=== PATIENT | female | born 1940 | race American Indian/Alaskan Native ===

== ENCOUNTER 2016-05-16 08:57 | Outpatient (CLI) | payer MEDICARE ==
[2016-05-16] MEDS ORDERED: XYLOCAINE TOPICAL 4% TP ONE (09:07)
== END 2016-05-16 08:58 | disposition home or self-care (01) ==
LOC: WOUND 08:57
PROVIDERS: ATTEND Orthopaedic Surgery
DX: E11.621 Type 2 diabetes mellitus with foot ulcer (principal); L97.521 Non-pressure chronic ulcer of other part of left foot limited to breakdown of skin; L97.421 Non-pressure chronic ulcer of left heel and midfoot limited to breakdown of skin; L84 Corns and callosities; I10 Essential (primary) hypertension; E11.51 Type 2 diabetes mellitus with diabetic peripheral angiopathy without gangrene; Z87.891 Personal history of nicotine dependence; Z89.611 Acquired absence of right leg above knee
CPT/HCPCS: 87075; 87116

== ENCOUNTER 2016-05-30 08:57 | Outpatient (CLI) | payer MEDICARE ==
[~2016-05-30 08:57] MED LIST: XYLOCAINE TOPICAL 2% TP ONE
[2016-05-30] MEDS ORDERED: XYLOCAINE TOPICAL 2% TP ONE (12:23)
== END 2016-05-30 08:58 | disposition home or self-care (01) ==
LOC: WOUND 08:57
PROVIDERS: ATTEND Orthopaedic Surgery
DX: E11.621 Type 2 diabetes mellitus with foot ulcer (principal); L97.521 Non-pressure chronic ulcer of other part of left foot limited to breakdown of skin; E11.51 Type 2 diabetes mellitus with diabetic peripheral angiopathy without gangrene; I10 Essential (primary) hypertension

== ENCOUNTER 2016-06-18 09:01 | Outpatient (CLI) | payer MEDICARE ==
[2016-06-18] MEDS ORDERED: XYLOCAINE TOPICAL 2% TP ONE ×2 (09:32→09:59)
== END 2016-06-18 09:02 | disposition home or self-care (01) ==
LOC: WOUND 09:01
PROVIDERS: ATTEND Internal Medicine
DX: E11.621 Type 2 diabetes mellitus with foot ulcer (principal); L97.422 Non-pressure chronic ulcer of left heel and midfoot with fat layer exposed; L97.521 Non-pressure chronic ulcer of other part of left foot limited to breakdown of skin; E11.51 Type 2 diabetes mellitus with diabetic peripheral angiopathy without gangrene; E11.22 Type 2 diabetes mellitus with diabetic chronic kidney disease; I12.9 Hypertensive chronic kidney disease with stage 1 through stage 4 chronic kidney disease, or unspecified chronic kidney disease; N18.3 Chronic kidney disease, stage 3 (moderate); L84 Corns and callosities; E78.2 Mixed hyperlipidemia; H25.013 Cortical age-related cataract, bilateral; Z89.611 Acquired absence of right leg above knee; Z86.73 Personal history of transient ischemic attack (TIA), and cerebral infarction without residual deficits; Z87.891 Personal history of nicotine dependence
CPT/HCPCS: 87075; 87116

== ENCOUNTER 2016-06-25 09:02 | Outpatient (CLI) | payer MEDICARE ==
[2016-06-25] MEDS ORDERED: XYLOCAINE TOPICAL 4% TP ONE ×2 (10:21→16:36)
== END 2016-06-25 09:03 | disposition home or self-care (01) ==
LOC: WOUND 09:02
PROVIDERS: ATTEND Internal Medicine
DX: E11.621 Type 2 diabetes mellitus with foot ulcer (principal); L97.421 Non-pressure chronic ulcer of left heel and midfoot limited to breakdown of skin; Z86.73 Personal history of transient ischemic attack (TIA), and cerebral infarction without residual deficits; E78.2 Mixed hyperlipidemia; E11.22 Type 2 diabetes mellitus with diabetic chronic kidney disease; I12.9 Hypertensive chronic kidney disease with stage 1 through stage 4 chronic kidney disease, or unspecified chronic kidney disease; N18.3 Chronic kidney disease, stage 3 (moderate); E08.621 Diabetes mellitus due to underlying condition with foot ulcer; H25.013 Cortical age-related cataract, bilateral; E08.8 Diabetes mellitus due to underlying condition with unspecified complications; Z87.891 Personal history of nicotine dependence

== ENCOUNTER 2016-07-09 08:55 | Outpatient (CLI) | payer MEDICARE ==
[2016-07-09] MEDS ORDERED: XYLOCAINE TOPICAL 4% TP ONE ×2 (08:59→09:36)
== END 2016-07-09 08:56 | disposition home or self-care (01) ==
LOC: WOUND 08:55
PROVIDERS: ATTEND Internal Medicine
DX: E11.621 Type 2 diabetes mellitus with foot ulcer (principal); L97.421 Non-pressure chronic ulcer of left heel and midfoot limited to breakdown of skin; E78.2 Mixed hyperlipidemia; H25.013 Cortical age-related cataract, bilateral; E11.22 Type 2 diabetes mellitus with diabetic chronic kidney disease; I12.9 Hypertensive chronic kidney disease with stage 1 through stage 4 chronic kidney disease, or unspecified chronic kidney disease; N18.3 Chronic kidney disease, stage 3 (moderate); I73.9 Peripheral vascular disease, unspecified; Z86.73 Personal history of transient ischemic attack (TIA), and cerebral infarction without residual deficits; Z87.891 Personal history of nicotine dependence

== ENCOUNTER 2016-07-23 09:00 | Outpatient (CLI) | payer MEDICARE ==
[2016-07-23] MEDS ORDERED: XYLOCAINE TOPICAL 4% TP ONE ×2 (09:18→11:45)
== END 2016-07-23 09:01 | disposition home or self-care (01) ==
LOC: WOUND 09:00
PROVIDERS: ATTEND Internal Medicine
DX: E11.621 Type 2 diabetes mellitus with foot ulcer (principal); L97.421 Non-pressure chronic ulcer of left heel and midfoot limited to breakdown of skin; L97.521 Non-pressure chronic ulcer of other part of left foot limited to breakdown of skin; E78.2 Mixed hyperlipidemia; H25.013 Cortical age-related cataract, bilateral; E11.22 Type 2 diabetes mellitus with diabetic chronic kidney disease; I12.9 Hypertensive chronic kidney disease with stage 1 through stage 4 chronic kidney disease, or unspecified chronic kidney disease; N18.3 Chronic kidney disease, stage 3 (moderate); I73.9 Peripheral vascular disease, unspecified; Z86.73 Personal history of transient ischemic attack (TIA), and cerebral infarction without residual deficits; Z87.891 Personal history of nicotine dependence; Z89.511 Acquired absence of right leg below knee
CPT/HCPCS: 11055

== ENCOUNTER 2016-08-15 09:02 | Outpatient (CLI) | payer MEDICARE ==
[2016-08-15] MEDS ORDERED: XYLOCAINE TOPICAL 2% TP ONE (09:17)
== END 2016-08-15 09:03 | disposition home or self-care (01) ==
LOC: WOUND 09:02
PROVIDERS: ATTEND Internal Medicine
DX: E11.621 Type 2 diabetes mellitus with foot ulcer (principal); L97.421 Non-pressure chronic ulcer of left heel and midfoot limited to breakdown of skin; I10 Essential (primary) hypertension; E78.2 Mixed hyperlipidemia; H25.013 Cortical age-related cataract, bilateral; E11.51 Type 2 diabetes mellitus with diabetic peripheral angiopathy without gangrene; Z86.73 Personal history of transient ischemic attack (TIA), and cerebral infarction without residual deficits; Z87.891 Personal history of nicotine dependence; Z89.611 Acquired absence of right leg above knee
CPT/HCPCS: 99215; G0463

== ENCOUNTER 2016-08-22 09:11 | Outpatient (CLI) | payer MEDICARE ==
[2016-08-22] MEDS ORDERED: XYLOCAINE TOPICAL 2% TP ONE (09:51)
== END 2016-08-22 09:12 | disposition home or self-care (01) ==
LOC: WOUND 09:11
PROVIDERS: ATTEND Internal Medicine
DX: E11.621 Type 2 diabetes mellitus with foot ulcer (principal); L97.421 Non-pressure chronic ulcer of left heel and midfoot limited to breakdown of skin; E11.22 Type 2 diabetes mellitus with diabetic chronic kidney disease; I12.9 Hypertensive chronic kidney disease with stage 1 through stage 4 chronic kidney disease, or unspecified chronic kidney disease; N18.3 Chronic kidney disease, stage 3 (moderate); E78.2 Mixed hyperlipidemia; H25.013 Cortical age-related cataract, bilateral; E11.51 Type 2 diabetes mellitus with diabetic peripheral angiopathy without gangrene; Z89.611 Acquired absence of right leg above knee; Z86.73 Personal history of transient ischemic attack (TIA), and cerebral infarction without residual deficits; Z87.891 Personal history of nicotine dependence
CPT/HCPCS: 11055; 87075; 87076; 87116; 87186

== ENCOUNTER 2016-09-03 09:12 | Outpatient (CLI) | payer MEDICARE ==
[2016-09-03] MEDS ORDERED: XYLOCAINE TOPICAL 4% TP ONE ×2 (09:38→10:00)
== END 2016-09-03 09:13 | disposition home or self-care (01) ==
LOC: WOUND 09:12
PROVIDERS: ATTEND Surgery
DX: E11.621 Type 2 diabetes mellitus with foot ulcer (principal); L97.421 Non-pressure chronic ulcer of left heel and midfoot limited to breakdown of skin; L97.521 Non-pressure chronic ulcer of other part of left foot limited to breakdown of skin; E78.2 Mixed hyperlipidemia; H25.013 Cortical age-related cataract, bilateral; E11.22 Type 2 diabetes mellitus with diabetic chronic kidney disease; I12.9 Hypertensive chronic kidney disease with stage 1 through stage 4 chronic kidney disease, or unspecified chronic kidney disease; N18.3 Chronic kidney disease, stage 3 (moderate); Z87.891 Personal history of nicotine dependence
CPT/HCPCS: 97597

== ENCOUNTER 2016-09-10 09:18 | Outpatient (CLI) | payer MEDICARE ==
[2016-09-10] MEDS ORDERED: XYLOCAINE TOPICAL 4% TP ONE ×2 (09:35→14:44)
== END 2016-09-10 09:19 | disposition home or self-care (01) ==
LOC: WOUND 09:18
PROVIDERS: ATTEND Internal Medicine
DX: E11.621 Type 2 diabetes mellitus with foot ulcer (principal); L97.421 Non-pressure chronic ulcer of left heel and midfoot limited to breakdown of skin; L97.521 Non-pressure chronic ulcer of other part of left foot limited to breakdown of skin; I10 Essential (primary) hypertension; E78.2 Mixed hyperlipidemia; H25.013 Cortical age-related cataract, bilateral; E11.22 Type 2 diabetes mellitus with diabetic chronic kidney disease; I12.9 Hypertensive chronic kidney disease with stage 1 through stage 4 chronic kidney disease, or unspecified chronic kidney disease; N18.3 Chronic kidney disease, stage 3 (moderate); E11.51 Type 2 diabetes mellitus with diabetic peripheral angiopathy without gangrene; E78.5 Hyperlipidemia, unspecified; Z86.73 Personal history of transient ischemic attack (TIA), and cerebral infarction without residual deficits; Z87.891 Personal history of nicotine dependence

== ENCOUNTER 2016-09-24 09:13 | Outpatient (CLI) | payer MEDICARE ==
[2016-09-24] MEDS ORDERED: XYLOCAINE TOPICAL 4% TP ONE (10:30)
== END 2016-09-24 09:14 | disposition home or self-care (01) ==
LOC: WOUND 09:13
PROVIDERS: ATTEND Internal Medicine
DX: E11.621 Type 2 diabetes mellitus with foot ulcer (principal); L97.421 Non-pressure chronic ulcer of left heel and midfoot limited to breakdown of skin; L97.521 Non-pressure chronic ulcer of other part of left foot limited to breakdown of skin; I10 Essential (primary) hypertension; E78.2 Mixed hyperlipidemia; H25.013 Cortical age-related cataract, bilateral; E11.22 Type 2 diabetes mellitus with diabetic chronic kidney disease; I12.9 Hypertensive chronic kidney disease with stage 1 through stage 4 chronic kidney disease, or unspecified chronic kidney disease; N18.3 Chronic kidney disease, stage 3 (moderate); E78.5 Hyperlipidemia, unspecified; E11.51 Type 2 diabetes mellitus with diabetic peripheral angiopathy without gangrene; Z86.73 Personal history of transient ischemic attack (TIA), and cerebral infarction without residual deficits; Z89.611 Acquired absence of right leg above knee; Z87.891 Personal history of nicotine dependence

== ENCOUNTER 2016-10-15 08:50 | Outpatient (CLI) | payer MEDICARE ==
[2016-10-15] MEDS ORDERED: XYLOCAINE TOPICAL 4% TP ONE ×2 (10:01→10:06)
== END 2016-10-15 08:51 | disposition home or self-care (01) ==
LOC: WOUND 08:50
PROVIDERS: ATTEND Internal Medicine
DX: I70.244 Atherosclerosis of native arteries of left leg with ulceration of heel and midfoot (principal); I70.245 Atherosclerosis of native arteries of left leg with ulceration of other part of foot; E11.621 Type 2 diabetes mellitus with foot ulcer; L97.421 Non-pressure chronic ulcer of left heel and midfoot limited to breakdown of skin; E78.2 Mixed hyperlipidemia; E11.22 Type 2 diabetes mellitus with diabetic chronic kidney disease; I12.9 Hypertensive chronic kidney disease with stage 1 through stage 4 chronic kidney disease, or unspecified chronic kidney disease; N18.3 Chronic kidney disease, stage 3 (moderate); E11.36 Type 2 diabetes mellitus with diabetic cataract; L84 Corns and callosities; E11.51 Type 2 diabetes mellitus with diabetic peripheral angiopathy without gangrene; Z89.611 Acquired absence of right leg above knee; Z86.73 Personal history of transient ischemic attack (TIA), and cerebral infarction without residual deficits; Z87.891 Personal history of nicotine dependence

== ENCOUNTER 2016-10-29 09:14 | Outpatient (CLI) | payer MEDICARE ==
[2016-10-29] MEDS ORDERED: XYLOCAINE TOPICAL 4% TP ONE ×2 (09:28→09:35)
== END 2016-10-29 09:15 | disposition home or self-care (01) ==
LOC: WOUND 09:14
PROVIDERS: ATTEND Internal Medicine
DX: E11.621 Type 2 diabetes mellitus with foot ulcer (principal); I70.244 Atherosclerosis of native arteries of left leg with ulceration of heel and midfoot; L97.421 Non-pressure chronic ulcer of left heel and midfoot limited to breakdown of skin; E11.22 Type 2 diabetes mellitus with diabetic chronic kidney disease; I12.9 Hypertensive chronic kidney disease with stage 1 through stage 4 chronic kidney disease, or unspecified chronic kidney disease; N18.3 Chronic kidney disease, stage 3 (moderate); E78.2 Mixed hyperlipidemia; H25.013 Cortical age-related cataract, bilateral; L84 Corns and callosities; E11.51 Type 2 diabetes mellitus with diabetic peripheral angiopathy without gangrene; Z86.73 Personal history of transient ischemic attack (TIA), and cerebral infarction without residual deficits; Z89.611 Acquired absence of right leg above knee; Z87.891 Personal history of nicotine dependence
CPT/HCPCS: 99215; G0463

== ENCOUNTER 2016-11-05 09:22 | Outpatient (CLI) | payer MEDICARE ==
[2016-11-05] MEDS ORDERED: XYLOCAINE TOPICAL 4% TP ONE ×2 (10:08→10:18)
[2016-11-05] MEDS ORDERED: SANTYL TP ONE ×2 (10:41→11:02)
== END 2016-11-05 09:23 | disposition home or self-care (01) ==
LOC: WOUND 09:22
PROVIDERS: ATTEND Internal Medicine
DX: E11.621 Type 2 diabetes mellitus with foot ulcer (principal); L97.521 Non-pressure chronic ulcer of other part of left foot limited to breakdown of skin; E11.622 Type 2 diabetes mellitus with other skin ulcer; L97.321 Non-pressure chronic ulcer of left ankle limited to breakdown of skin; E78.2 Mixed hyperlipidemia; H25.013 Cortical age-related cataract, bilateral; I87.2 Venous insufficiency (chronic) (peripheral); E11.22 Type 2 diabetes mellitus with diabetic chronic kidney disease; I12.9 Hypertensive chronic kidney disease with stage 1 through stage 4 chronic kidney disease, or unspecified chronic kidney disease; N18.3 Chronic kidney disease, stage 3 (moderate); E11.51 Type 2 diabetes mellitus with diabetic peripheral angiopathy without gangrene; Z87.891 Personal history of nicotine dependence; Z86.73 Personal history of transient ischemic attack (TIA), and cerebral infarction without residual deficits; Z89.611 Acquired absence of right leg above knee

== ENCOUNTER 2016-11-19 09:35 | Outpatient (CLI) | payer MEDICARE ==
[2016-11-19] MEDS ORDERED: XYLOCAINE TOPICAL 4% TP ONE ×2 (10:21→10:32)
== END 2016-11-19 09:36 | disposition home or self-care (01) ==
LOC: WOUND 09:35
PROVIDERS: ATTEND Internal Medicine
DX: E11.621 Type 2 diabetes mellitus with foot ulcer (principal); L97.521 Non-pressure chronic ulcer of other part of left foot limited to breakdown of skin; E11.51 Type 2 diabetes mellitus with diabetic peripheral angiopathy without gangrene; E11.22 Type 2 diabetes mellitus with diabetic chronic kidney disease; N18.3 Chronic kidney disease, stage 3 (moderate); E78.2 Mixed hyperlipidemia; I10 Essential (primary) hypertension; Z86.73 Personal history of transient ischemic attack (TIA), and cerebral infarction without residual deficits; Z89.611 Acquired absence of right leg above knee; Z87.891 Personal history of nicotine dependence
CPT/HCPCS: 71020

== ENCOUNTER 2016-11-19 12:28 | Outpatient (CLI) | payer MEDICARE ==
--- NOTE | 2016-11-19 14:55 | XRay Report ---
CHEST 2 VIEWS INDICATION: Pre-hyperbaric screening. COMPARISON: 03/24/2014. FINDINGS: PA and lateral chest radiographs demonstrate normal cardiomediastinal silhouette. Clear lungs. Interval right upper extremity PICC removal. Stable demineralized bones with various degenerative changes. CONCLUSION: No acute disease in the chest. Thank you for the opportunity to participate in this patient's care.
== END 2016-11-19 12:29 | disposition home or self-care (01) ==
LOC: XRAY 12:28
PROVIDERS: ATTEND Internal Medicine
DX: Z13.89 Encounter for screening for other disorder (principal); I13.0 Hypertensive heart and chronic kidney disease with heart failure and stage 1 through stage 4 chronic kidney disease, or unspecified chronic kidney disease; I50.9 Heart failure, unspecified; N18.4 Chronic kidney disease, stage 4 (severe); E11.22 Type 2 diabetes mellitus with diabetic chronic kidney disease; D63.1 Anemia in chronic kidney disease; I25.10 Atherosclerotic heart disease of native coronary artery without angina pectoris; E78.00 Pure hypercholesterolemia, unspecified; J45.909 Unspecified asthma, uncomplicated; Z87.891 Personal history of nicotine dependence
CPT/HCPCS: 71020

== ENCOUNTER 2016-11-26 09:34 | Outpatient (CLI) | payer MEDICARE ==
[2016-11-26] MEDS ORDERED: XYLOCAINE TOPICAL 4% TP ONE (11:03)
[2016-11-26] MEDS ORDERED: AD OINTMENT TP ONE (11:43)
[2016-11-27] MEDS ORDERED: AD OINTMENT TP SCH (10:00)
== END 2016-11-26 09:35 | disposition home or self-care (01) ==
LOC: WOUND 09:34
PROVIDERS: ATTEND Internal Medicine
DX: E11.621 Type 2 diabetes mellitus with foot ulcer (principal); L97.521 Non-pressure chronic ulcer of other part of left foot limited to breakdown of skin; E11.51 Type 2 diabetes mellitus with diabetic peripheral angiopathy without gangrene; E11.22 Type 2 diabetes mellitus with diabetic chronic kidney disease; I12.9 Hypertensive chronic kidney disease with stage 1 through stage 4 chronic kidney disease, or unspecified chronic kidney disease; N18.3 Chronic kidney disease, stage 3 (moderate); E11.69 Type 2 diabetes mellitus with other specified complication; M86.572 Other chronic hematogenous osteomyelitis, left ankle and foot; E78.2 Mixed hyperlipidemia; H25.013 Cortical age-related cataract, bilateral; Z86.73 Personal history of transient ischemic attack (TIA), and cerebral infarction without residual deficits; Z89.611 Acquired absence of right leg above knee; Z87.891 Personal history of nicotine dependence
CPT/HCPCS: 11042; 11045; 82962; G0277; 99183; A6250

== ENCOUNTER 2016-11-28 09:12 | Outpatient (CLI) | payer MEDICARE | END 2016-11-28 09:13 | disposition home or self-care (01) | LOC: WOUND 09:12 | PROVIDERS: ATTEND Surgery | DX: E11.621 Type 2 diabetes mellitus with foot ulcer (principal); L97.421 Non-pressure chronic ulcer of left heel and midfoot limited to breakdown of skin; E11.69 Type 2 diabetes mellitus with other specified complication; M86.572 Other chronic hematogenous osteomyelitis, left ankle and foot; E11.22 Type 2 diabetes mellitus with diabetic chronic kidney disease; I12.9 Hypertensive chronic kidney disease with stage 1 through stage 4 chronic kidney disease, or unspecified chronic kidney disease; N18.9 Chronic kidney disease, unspecified; E78.2 Mixed hyperlipidemia; H25.013 Cortical age-related cataract, bilateral; E11.51 Type 2 diabetes mellitus with diabetic peripheral angiopathy without gangrene; Z86.73 Personal history of transient ischemic attack (TIA), and cerebral infarction without residual deficits; Z89.611 Acquired absence of right leg above knee; Z87.891 Personal history of nicotine dependence | CPT/HCPCS: 82962; G0277; 99183 ==

== ENCOUNTER 2016-11-29 09:24 | Outpatient (CLI) | payer MEDICARE | END 2016-11-29 09:25 | disposition home or self-care (01) | LOC: WOUND 09:24 | PROVIDERS: ATTEND Nurse Practitioner | DX: E11.621 Type 2 diabetes mellitus with foot ulcer (principal); L97.421 Non-pressure chronic ulcer of left heel and midfoot limited to breakdown of skin; E11.51 Type 2 diabetes mellitus with diabetic peripheral angiopathy without gangrene; E11.22 Type 2 diabetes mellitus with diabetic chronic kidney disease; I12.9 Hypertensive chronic kidney disease with stage 1 through stage 4 chronic kidney disease, or unspecified chronic kidney disease; N18.9 Chronic kidney disease, unspecified; E11.36 Type 2 diabetes mellitus with diabetic cataract; E11.69 Type 2 diabetes mellitus with other specified complication; E78.2 Mixed hyperlipidemia; M86.572 Other chronic hematogenous osteomyelitis, left ankle and foot; Z86.73 Personal history of transient ischemic attack (TIA), and cerebral infarction without residual deficits; Z89.611 Acquired absence of right leg above knee; Z87.891 Personal history of nicotine dependence | CPT/HCPCS: 82962; G0277; 99183 ==

== ENCOUNTER 2016-11-30 09:31 | Outpatient (CLI) | payer MEDICARE | END 2016-11-30 09:32 | disposition home or self-care (01) | LOC: WOUND 09:31 | PROVIDERS: ATTEND Podiatrist | DX: E11.621 Type 2 diabetes mellitus with foot ulcer (principal); L97.421 Non-pressure chronic ulcer of left heel and midfoot limited to breakdown of skin; H25.013 Cortical age-related cataract, bilateral; E11.22 Type 2 diabetes mellitus with diabetic chronic kidney disease; I12.9 Hypertensive chronic kidney disease with stage 1 through stage 4 chronic kidney disease, or unspecified chronic kidney disease; N18.3 Chronic kidney disease, stage 3 (moderate); E78.2 Mixed hyperlipidemia; E11.69 Type 2 diabetes mellitus with other specified complication; M86.572 Other chronic hematogenous osteomyelitis, left ankle and foot; E11.51 Type 2 diabetes mellitus with diabetic peripheral angiopathy without gangrene; Z86.73 Personal history of transient ischemic attack (TIA), and cerebral infarction without residual deficits; Z89.611 Acquired absence of right leg above knee; Z87.891 Personal history of nicotine dependence | CPT/HCPCS: 82962; G0277; 99183 ==

== ENCOUNTER 2016-12-03 09:08 | Outpatient (CLI) | payer MEDICARE ==
[2016-12-03] MEDS ORDERED: XYLOCAINE TOPICAL 4% TP ONE (09:24)
== END 2016-12-03 09:09 | disposition home or self-care (01) ==
LOC: WOUND 09:08
PROVIDERS: ATTEND Internal Medicine
DX: E11.621 Type 2 diabetes mellitus with foot ulcer (principal); L97.521 Non-pressure chronic ulcer of other part of left foot limited to breakdown of skin; E11.51 Type 2 diabetes mellitus with diabetic peripheral angiopathy without gangrene; E11.22 Type 2 diabetes mellitus with diabetic chronic kidney disease; I12.9 Hypertensive chronic kidney disease with stage 1 through stage 4 chronic kidney disease, or unspecified chronic kidney disease; N18.3 Chronic kidney disease, stage 3 (moderate); H25.013 Cortical age-related cataract, bilateral; E11.69 Type 2 diabetes mellitus with other specified complication; M86.572 Other chronic hematogenous osteomyelitis, left ankle and foot; E78.2 Mixed hyperlipidemia; I10 Essential (primary) hypertension; L84 Corns and callosities; Z86.73 Personal history of transient ischemic attack (TIA), and cerebral infarction without residual deficits; Z89.611 Acquired absence of right leg above knee; Z87.891 Personal history of nicotine dependence
CPT/HCPCS: 11042; 11045; 82962; G0277; 99183

== ENCOUNTER 2016-12-04 09:35 | Outpatient (CLI) | payer MEDICARE | END 2016-12-04 09:36 | disposition home or self-care (01) | LOC: WOUND 09:35 | PROVIDERS: ATTEND Surgery | DX: E11.621 Type 2 diabetes mellitus with foot ulcer (principal); L97.421 Non-pressure chronic ulcer of left heel and midfoot limited to breakdown of skin; E11.22 Type 2 diabetes mellitus with diabetic chronic kidney disease; E11.51 Type 2 diabetes mellitus with diabetic peripheral angiopathy without gangrene; I12.9 Hypertensive chronic kidney disease with stage 1 through stage 4 chronic kidney disease, or unspecified chronic kidney disease; N18.3 Chronic kidney disease, stage 3 (moderate); E11.69 Type 2 diabetes mellitus with other specified complication; M86.572 Other chronic hematogenous osteomyelitis, left ankle and foot; E78.2 Mixed hyperlipidemia; H25.013 Cortical age-related cataract, bilateral; Z86.73 Personal history of transient ischemic attack (TIA), and cerebral infarction without residual deficits; Z89.611 Acquired absence of right leg above knee; Z87.891 Personal history of nicotine dependence | CPT/HCPCS: 82962; G0277; 99183 ==

== ENCOUNTER 2016-12-05 09:18 | Outpatient (CLI) | payer MEDICARE | END 2016-12-05 09:19 | disposition home or self-care (01) | LOC: WOUND 09:18 | PROVIDERS: ATTEND Surgery | DX: E11.621 Type 2 diabetes mellitus with foot ulcer (principal); L97.421 Non-pressure chronic ulcer of left heel and midfoot limited to breakdown of skin; E11.51 Type 2 diabetes mellitus with diabetic peripheral angiopathy without gangrene; H25.013 Cortical age-related cataract, bilateral; E78.2 Mixed hyperlipidemia; E11.22 Type 2 diabetes mellitus with diabetic chronic kidney disease; I12.9 Hypertensive chronic kidney disease with stage 1 through stage 4 chronic kidney disease, or unspecified chronic kidney disease; N18.3 Chronic kidney disease, stage 3 (moderate); E11.69 Type 2 diabetes mellitus with other specified complication; M86.572 Other chronic hematogenous osteomyelitis, left ankle and foot; Z86.73 Personal history of transient ischemic attack (TIA), and cerebral infarction without residual deficits; Z89.611 Acquired absence of right leg above knee; Z87.891 Personal history of nicotine dependence | CPT/HCPCS: 82962; G0277; 99183 ==

== ENCOUNTER 2016-12-06 09:41 | Outpatient (CLI) | payer MEDICARE | END 2016-12-06 09:42 | disposition home or self-care (01) | LOC: WOUND 09:41 | PROVIDERS: ATTEND Nurse Practitioner | DX: E11.621 Type 2 diabetes mellitus with foot ulcer (principal); L97.421 Non-pressure chronic ulcer of left heel and midfoot limited to breakdown of skin; E11.69 Type 2 diabetes mellitus with other specified complication; M86.572 Other chronic hematogenous osteomyelitis, left ankle and foot; E78.2 Mixed hyperlipidemia; H25.013 Cortical age-related cataract, bilateral; E11.22 Type 2 diabetes mellitus with diabetic chronic kidney disease; I12.9 Hypertensive chronic kidney disease with stage 1 through stage 4 chronic kidney disease, or unspecified chronic kidney disease; N18.3 Chronic kidney disease, stage 3 (moderate); E11.51 Type 2 diabetes mellitus with diabetic peripheral angiopathy without gangrene; E78.5 Hyperlipidemia, unspecified; Z86.73 Personal history of transient ischemic attack (TIA), and cerebral infarction without residual deficits; Z89.611 Acquired absence of right leg above knee; Z87.891 Personal history of nicotine dependence | CPT/HCPCS: 82962; G0277; 99183 ==

== ENCOUNTER 2016-12-07 09:48 | Outpatient (CLI) | payer MEDICARE | END 2016-12-07 09:49 | disposition home or self-care (01) | LOC: WOUND 09:48 | PROVIDERS: ATTEND Podiatrist | DX: E11.621 Type 2 diabetes mellitus with foot ulcer (principal); L97.421 Non-pressure chronic ulcer of left heel and midfoot limited to breakdown of skin; E11.51 Type 2 diabetes mellitus with diabetic peripheral angiopathy without gangrene; E11.69 Type 2 diabetes mellitus with other specified complication; M86.572 Other chronic hematogenous osteomyelitis, left ankle and foot; E11.22 Type 2 diabetes mellitus with diabetic chronic kidney disease; I12.9 Hypertensive chronic kidney disease with stage 1 through stage 4 chronic kidney disease, or unspecified chronic kidney disease; N18.3 Chronic kidney disease, stage 3 (moderate); E78.2 Mixed hyperlipidemia; H25.013 Cortical age-related cataract, bilateral; E78.5 Hyperlipidemia, unspecified; Z86.73 Personal history of transient ischemic attack (TIA), and cerebral infarction without residual deficits; Z89.611 Acquired absence of right leg above knee; Z87.891 Personal history of nicotine dependence | CPT/HCPCS: 82962; G0277; 99183 ==

== ENCOUNTER 2016-12-10 08:58 | Outpatient (CLI) | payer MEDICARE ==
[2016-12-10] MEDS ORDERED: XYLOCAINE TOPICAL 4% TP ONE (09:26)
== END 2016-12-10 08:59 | disposition home or self-care (01) ==
LOC: WOUND 08:58
PROVIDERS: ATTEND Internal Medicine
DX: E11.621 Type 2 diabetes mellitus with foot ulcer (principal); L97.521 Non-pressure chronic ulcer of other part of left foot limited to breakdown of skin; L97.421 Non-pressure chronic ulcer of left heel and midfoot limited to breakdown of skin; E11.69 Type 2 diabetes mellitus with other specified complication; M86.572 Other chronic hematogenous osteomyelitis, left ankle and foot; E78.2 Mixed hyperlipidemia; H25.013 Cortical age-related cataract, bilateral; E11.22 Type 2 diabetes mellitus with diabetic chronic kidney disease; I12.9 Hypertensive chronic kidney disease with stage 1 through stage 4 chronic kidney disease, or unspecified chronic kidney disease; N18.3 Chronic kidney disease, stage 3 (moderate); E11.51 Type 2 diabetes mellitus with diabetic peripheral angiopathy without gangrene; Z86.73 Personal history of transient ischemic attack (TIA), and cerebral infarction without residual deficits; Z87.891 Personal history of nicotine dependence; Z89.611 Acquired absence of right leg above knee
CPT/HCPCS: 11042; 11045; 82962; G0277; 99183

== ENCOUNTER 2016-12-11 09:33 | Outpatient (CLI) | payer MEDICARE ==
[~2016-12-11 09:33] MED LIST changes: -XYLOCAINE TOPICAL 2% TP ONE; +XYLOCAINE TOPICAL 4% TP ONE
== END 2016-12-11 09:34 | disposition home or self-care (01) ==
LOC: WOUND 09:33
PROVIDERS: ATTEND Surgery
DX: E11.621 Type 2 diabetes mellitus with foot ulcer (principal); L97.421 Non-pressure chronic ulcer of left heel and midfoot limited to breakdown of skin; E11.69 Type 2 diabetes mellitus with other specified complication; M86.572 Other chronic hematogenous osteomyelitis, left ankle and foot; H25.013 Cortical age-related cataract, bilateral; E78.2 Mixed hyperlipidemia; E11.22 Type 2 diabetes mellitus with diabetic chronic kidney disease; I12.9 Hypertensive chronic kidney disease with stage 1 through stage 4 chronic kidney disease, or unspecified chronic kidney disease; N18.3 Chronic kidney disease, stage 3 (moderate); E11.51 Type 2 diabetes mellitus with diabetic peripheral angiopathy without gangrene; Z86.73 Personal history of transient ischemic attack (TIA), and cerebral infarction without residual deficits; Z89.611 Acquired absence of right leg above knee; Z87.891 Personal history of nicotine dependence
CPT/HCPCS: 82962; G0277; 99183

== ENCOUNTER 2016-12-12 09:26 | Outpatient (CLI) | payer MEDICARE | END 2016-12-12 09:27 | disposition home or self-care (01) | LOC: WOUND 09:26 | PROVIDERS: ATTEND Surgery | DX: E11.621 Type 2 diabetes mellitus with foot ulcer (principal); L97.421 Non-pressure chronic ulcer of left heel and midfoot limited to breakdown of skin; H25.013 Cortical age-related cataract, bilateral; E11.22 Type 2 diabetes mellitus with diabetic chronic kidney disease; I12.9 Hypertensive chronic kidney disease with stage 1 through stage 4 chronic kidney disease, or unspecified chronic kidney disease; N18.3 Chronic kidney disease, stage 3 (moderate); E11.69 Type 2 diabetes mellitus with other specified complication; M86.572 Other chronic hematogenous osteomyelitis, left ankle and foot; E78.2 Mixed hyperlipidemia; E11.51 Type 2 diabetes mellitus with diabetic peripheral angiopathy without gangrene; Z86.73 Personal history of transient ischemic attack (TIA), and cerebral infarction without residual deficits; Z87.891 Personal history of nicotine dependence | CPT/HCPCS: 82962; G0277; 99183 ==

== ENCOUNTER 2016-12-13 09:46 | Outpatient (CLI) | payer MEDICARE | END 2016-12-13 09:47 | disposition home or self-care (01) | LOC: WOUND 09:46 | PROVIDERS: ATTEND Nurse Practitioner | DX: E11.621 Type 2 diabetes mellitus with foot ulcer (principal); L97.421 Non-pressure chronic ulcer of left heel and midfoot limited to breakdown of skin; E11.22 Type 2 diabetes mellitus with diabetic chronic kidney disease; I12.9 Hypertensive chronic kidney disease with stage 1 through stage 4 chronic kidney disease, or unspecified chronic kidney disease; N18.3 Chronic kidney disease, stage 3 (moderate); E78.2 Mixed hyperlipidemia; H25.013 Cortical age-related cataract, bilateral; E11.69 Type 2 diabetes mellitus with other specified complication; M86.572 Other chronic hematogenous osteomyelitis, left ankle and foot; E11.51 Type 2 diabetes mellitus with diabetic peripheral angiopathy without gangrene; Z86.73 Personal history of transient ischemic attack (TIA), and cerebral infarction without residual deficits; Z89.611 Acquired absence of right leg above knee; Z87.891 Personal history of nicotine dependence | CPT/HCPCS: 82962; G0277; 99183 ==

== ENCOUNTER 2016-12-14 09:28 | Outpatient (CLI) | payer MEDICARE | END 2016-12-14 09:29 | disposition home or self-care (01) | LOC: WOUND 09:28 | PROVIDERS: ATTEND Podiatrist | DX: E11.621 Type 2 diabetes mellitus with foot ulcer (principal); L97.421 Non-pressure chronic ulcer of left heel and midfoot limited to breakdown of skin; E11.69 Type 2 diabetes mellitus with other specified complication; M86.572 Other chronic hematogenous osteomyelitis, left ankle and foot; H25.013 Cortical age-related cataract, bilateral; E11.22 Type 2 diabetes mellitus with diabetic chronic kidney disease; I12.9 Hypertensive chronic kidney disease with stage 1 through stage 4 chronic kidney disease, or unspecified chronic kidney disease; N18.9 Chronic kidney disease, unspecified; E78.2 Mixed hyperlipidemia; E11.51 Type 2 diabetes mellitus with diabetic peripheral angiopathy without gangrene; Z86.73 Personal history of transient ischemic attack (TIA), and cerebral infarction without residual deficits; Z89.611 Acquired absence of right leg above knee; Z87.891 Personal history of nicotine dependence | CPT/HCPCS: 82962; G0277; 99183 ==

== ENCOUNTER 2016-12-17 09:01 | Outpatient (CLI) | payer MEDICARE ==
[2016-12-17] MEDS ORDERED: XYLOCAINE TOPICAL 4% TP ONE ×2 (09:27→09:38)
== END 2016-12-17 09:02 | disposition home or self-care (01) ==
LOC: WOUND 09:01
PROVIDERS: ATTEND Internal Medicine
DX: E11.621 Type 2 diabetes mellitus with foot ulcer (principal); L97.521 Non-pressure chronic ulcer of other part of left foot limited to breakdown of skin; E11.69 Type 2 diabetes mellitus with other specified complication; M86.572 Other chronic hematogenous osteomyelitis, left ankle and foot; E11.22 Type 2 diabetes mellitus with diabetic chronic kidney disease; I12.9 Hypertensive chronic kidney disease with stage 1 through stage 4 chronic kidney disease, or unspecified chronic kidney disease; N18.3 Chronic kidney disease, stage 3 (moderate); E78.2 Mixed hyperlipidemia; E11.51 Type 2 diabetes mellitus with diabetic peripheral angiopathy without gangrene; Z86.73 Personal history of transient ischemic attack (TIA), and cerebral infarction without residual deficits; Z89.611 Acquired absence of right leg above knee; Z87.891 Personal history of nicotine dependence
CPT/HCPCS: 11042; 82962; G0277; 99183

== ENCOUNTER 2016-12-18 09:21 | Outpatient (CLI) | payer MEDICARE | END 2016-12-18 09:22 | disposition home or self-care (01) | LOC: WOUND 09:21 | PROVIDERS: ATTEND Surgery | DX: E11.621 Type 2 diabetes mellitus with foot ulcer (principal); L97.421 Non-pressure chronic ulcer of left heel and midfoot limited to breakdown of skin; E11.51 Type 2 diabetes mellitus with diabetic peripheral angiopathy without gangrene; E11.22 Type 2 diabetes mellitus with diabetic chronic kidney disease; I12.9 Hypertensive chronic kidney disease with stage 1 through stage 4 chronic kidney disease, or unspecified chronic kidney disease; N18.3 Chronic kidney disease, stage 3 (moderate); H25.013 Cortical age-related cataract, bilateral; E11.69 Type 2 diabetes mellitus with other specified complication; M86.572 Other chronic hematogenous osteomyelitis, left ankle and foot; E78.5 Hyperlipidemia, unspecified; Z86.73 Personal history of transient ischemic attack (TIA), and cerebral infarction without residual deficits; Z89.611 Acquired absence of right leg above knee; Z87.891 Personal history of nicotine dependence | CPT/HCPCS: 82962; G0277; 99183 ==

== ENCOUNTER 2016-12-24 09:35 | Outpatient (CLI) | payer MEDICARE | END 2016-12-24 09:36 | disposition home or self-care (01) | LOC: WOUND 09:35 | PROVIDERS: ATTEND Internal Medicine | DX: E11.69 Type 2 diabetes mellitus with other specified complication (principal); M86.572 Other chronic hematogenous osteomyelitis, left ankle and foot; E11.22 Type 2 diabetes mellitus with diabetic chronic kidney disease; I12.9 Hypertensive chronic kidney disease with stage 1 through stage 4 chronic kidney disease, or unspecified chronic kidney disease; N18.3 Chronic kidney disease, stage 3 (moderate); E78.2 Mixed hyperlipidemia; H25.013 Cortical age-related cataract, bilateral; E11.51 Type 2 diabetes mellitus with diabetic peripheral angiopathy without gangrene; E78.5 Hyperlipidemia, unspecified; Z86.73 Personal history of transient ischemic attack (TIA), and cerebral infarction without residual deficits; Z89.611 Acquired absence of right leg above knee; Z87.891 Personal history of nicotine dependence | CPT/HCPCS: 82962; G0277; 99183 ==

== ENCOUNTER 2016-12-25 14:10 | Outpatient (CLI) | payer MEDICARE | END 2016-12-25 14:11 | disposition home or self-care (01) | LOC: WOUND 14:10 | PROVIDERS: ATTEND Internal Medicine | DX: E11.621 Type 2 diabetes mellitus with foot ulcer (principal); L97.421 Non-pressure chronic ulcer of left heel and midfoot limited to breakdown of skin; E11.22 Type 2 diabetes mellitus with diabetic chronic kidney disease; I12.9 Hypertensive chronic kidney disease with stage 1 through stage 4 chronic kidney disease, or unspecified chronic kidney disease; N18.3 Chronic kidney disease, stage 3 (moderate); E78.2 Mixed hyperlipidemia; H25.013 Cortical age-related cataract, bilateral; E11.69 Type 2 diabetes mellitus with other specified complication; M86.572 Other chronic hematogenous osteomyelitis, left ankle and foot; E11.51 Type 2 diabetes mellitus with diabetic peripheral angiopathy without gangrene; E78.5 Hyperlipidemia, unspecified; Z86.73 Personal history of transient ischemic attack (TIA), and cerebral infarction without residual deficits; Z89.611 Acquired absence of right leg above knee; Z87.891 Personal history of nicotine dependence | CPT/HCPCS: 82962; G0277; 99183 ==

== ENCOUNTER 2016-12-26 09:30 | Outpatient (CLI) | payer MEDICARE | END 2016-12-26 09:31 | disposition home or self-care (01) | LOC: WOUND 09:30 | PROVIDERS: ATTEND Surgery | DX: E11.621 Type 2 diabetes mellitus with foot ulcer (principal); L97.421 Non-pressure chronic ulcer of left heel and midfoot limited to breakdown of skin; H25.013 Cortical age-related cataract, bilateral; E11.22 Type 2 diabetes mellitus with diabetic chronic kidney disease; I12.9 Hypertensive chronic kidney disease with stage 1 through stage 4 chronic kidney disease, or unspecified chronic kidney disease; N18.3 Chronic kidney disease, stage 3 (moderate); E78.2 Mixed hyperlipidemia; E11.69 Type 2 diabetes mellitus with other specified complication; M86.572 Other chronic hematogenous osteomyelitis, left ankle and foot; E11.51 Type 2 diabetes mellitus with diabetic peripheral angiopathy without gangrene; Z86.73 Personal history of transient ischemic attack (TIA), and cerebral infarction without residual deficits; Z89.611 Acquired absence of right leg above knee; Z87.891 Personal history of nicotine dependence | CPT/HCPCS: 82962; G0277; 99183 ==

== ENCOUNTER 2016-12-27 14:06 | Outpatient (CLI) | payer MEDICARE | END 2016-12-27 14:07 | disposition home or self-care (01) | LOC: WOUND 14:06 | PROVIDERS: ATTEND Internal Medicine | DX: E11.621 Type 2 diabetes mellitus with foot ulcer (principal); L97.421 Non-pressure chronic ulcer of left heel and midfoot limited to breakdown of skin; E11.69 Type 2 diabetes mellitus with other specified complication; M86.572 Other chronic hematogenous osteomyelitis, left ankle and foot; E11.22 Type 2 diabetes mellitus with diabetic chronic kidney disease; I12.9 Hypertensive chronic kidney disease with stage 1 through stage 4 chronic kidney disease, or unspecified chronic kidney disease; N18.3 Chronic kidney disease, stage 3 (moderate); H25.013 Cortical age-related cataract, bilateral; E78.2 Mixed hyperlipidemia; E11.51 Type 2 diabetes mellitus with diabetic peripheral angiopathy without gangrene; Z86.73 Personal history of transient ischemic attack (TIA), and cerebral infarction without residual deficits; Z89.611 Acquired absence of right leg above knee; Z87.891 Personal history of nicotine dependence | CPT/HCPCS: 82962; G0277; 99183 ==

== ENCOUNTER 2016-12-28 09:32 | Outpatient (CLI) | payer MEDICARE | END 2016-12-28 09:33 | disposition home or self-care (01) | LOC: WOUND 09:32 | PROVIDERS: ATTEND Podiatrist | DX: E11.621 Type 2 diabetes mellitus with foot ulcer (principal); L97.421 Non-pressure chronic ulcer of left heel and midfoot limited to breakdown of skin; E11.22 Type 2 diabetes mellitus with diabetic chronic kidney disease; I12.9 Hypertensive chronic kidney disease with stage 1 through stage 4 chronic kidney disease, or unspecified chronic kidney disease; N18.3 Chronic kidney disease, stage 3 (moderate); E78.2 Mixed hyperlipidemia; H25.013 Cortical age-related cataract, bilateral; E11.69 Type 2 diabetes mellitus with other specified complication; M86.572 Other chronic hematogenous osteomyelitis, left ankle and foot; E11.51 Type 2 diabetes mellitus with diabetic peripheral angiopathy without gangrene; Z86.73 Personal history of transient ischemic attack (TIA), and cerebral infarction without residual deficits; Z89.611 Acquired absence of right leg above knee; Z87.891 Personal history of nicotine dependence | CPT/HCPCS: 82962; G0277; 99183 ==

== ENCOUNTER 2016-12-31 09:11 | Outpatient (CLI) | payer MEDICARE ==
[2016-12-31] MEDS ORDERED: XYLOCAINE TOPICAL 4% TP ONE (09:51)
== END 2016-12-31 09:12 | disposition home or self-care (01) ==
LOC: WOUND 09:11
PROVIDERS: ATTEND Internal Medicine
DX: E11.621 Type 2 diabetes mellitus with foot ulcer (principal); L97.521 Non-pressure chronic ulcer of other part of left foot limited to breakdown of skin; E11.69 Type 2 diabetes mellitus with other specified complication; M86.572 Other chronic hematogenous osteomyelitis, left ankle and foot; E11.22 Type 2 diabetes mellitus with diabetic chronic kidney disease; I12.9 Hypertensive chronic kidney disease with stage 1 through stage 4 chronic kidney disease, or unspecified chronic kidney disease; N18.3 Chronic kidney disease, stage 3 (moderate); E78.2 Mixed hyperlipidemia; H25.013 Cortical age-related cataract, bilateral; E11.51 Type 2 diabetes mellitus with diabetic peripheral angiopathy without gangrene; Z86.73 Personal history of transient ischemic attack (TIA), and cerebral infarction without residual deficits; Z89.611 Acquired absence of right leg above knee; Z87.891 Personal history of nicotine dependence
CPT/HCPCS: 11042; 82962; G0277; 99183

== ENCOUNTER 2017-01-01 14:11 | Outpatient (CLI) | payer MEDICARE ==
[2017-01-01] MEDS ORDERED: XYLOCAINE TOPICAL 4% TP ONE (14:14)
== END 2017-01-01 14:12 | disposition home or self-care (01) ==
LOC: WOUND 14:11
PROVIDERS: ATTEND Internal Medicine
DX: E11.621 Type 2 diabetes mellitus with foot ulcer (principal); L97.421 Non-pressure chronic ulcer of left heel and midfoot limited to breakdown of skin; E11.69 Type 2 diabetes mellitus with other specified complication; M86.572 Other chronic hematogenous osteomyelitis, left ankle and foot; E11.51 Type 2 diabetes mellitus with diabetic peripheral angiopathy without gangrene; E78.5 Hyperlipidemia, unspecified; I10 Essential (primary) hypertension; Z86.73 Personal history of transient ischemic attack (TIA), and cerebral infarction without residual deficits; Z89.611 Acquired absence of right leg above knee; Z87.891 Personal history of nicotine dependence
CPT/HCPCS: 82962; G0277; 99183

== ENCOUNTER 2017-01-02 09:36 | Outpatient (CLI) | payer MEDICARE | END 2017-01-02 09:37 | disposition home or self-care (01) | LOC: WOUND 09:36 | PROVIDERS: ATTEND Surgery | DX: E11.621 Type 2 diabetes mellitus with foot ulcer (principal); L97.421 Non-pressure chronic ulcer of left heel and midfoot limited to breakdown of skin; L97.521 Non-pressure chronic ulcer of other part of left foot limited to breakdown of skin; E11.69 Type 2 diabetes mellitus with other specified complication; M86.572 Other chronic hematogenous osteomyelitis, left ankle and foot; E78.2 Mixed hyperlipidemia; H25.013 Cortical age-related cataract, bilateral; E11.22 Type 2 diabetes mellitus with diabetic chronic kidney disease; I12.9 Hypertensive chronic kidney disease with stage 1 through stage 4 chronic kidney disease, or unspecified chronic kidney disease; N18.3 Chronic kidney disease, stage 3 (moderate); E11.51 Type 2 diabetes mellitus with diabetic peripheral angiopathy without gangrene; Z86.73 Personal history of transient ischemic attack (TIA), and cerebral infarction without residual deficits; Z87.891 Personal history of nicotine dependence; Z89.611 Acquired absence of right leg above knee | CPT/HCPCS: 82962; G0277; 99183 ==

== ENCOUNTER 2017-01-03 13:55 | Outpatient (CLI) | payer MEDICARE | END 2017-01-03 13:56 | disposition home or self-care (01) | LOC: WOUND 13:55 | PROVIDERS: ATTEND Nurse Practitioner | DX: E11.621 Type 2 diabetes mellitus with foot ulcer (principal); L97.521 Non-pressure chronic ulcer of other part of left foot limited to breakdown of skin; E11.69 Type 2 diabetes mellitus with other specified complication; M86.572 Other chronic hematogenous osteomyelitis, left ankle and foot; E78.2 Mixed hyperlipidemia; E11.22 Type 2 diabetes mellitus with diabetic chronic kidney disease; I12.9 Hypertensive chronic kidney disease with stage 1 through stage 4 chronic kidney disease, or unspecified chronic kidney disease; N18.3 Chronic kidney disease, stage 3 (moderate); H25.013 Cortical age-related cataract, bilateral; E11.51 Type 2 diabetes mellitus with diabetic peripheral angiopathy without gangrene; Z86.73 Personal history of transient ischemic attack (TIA), and cerebral infarction without residual deficits; Z89.611 Acquired absence of right leg above knee; Z87.891 Personal history of nicotine dependence | CPT/HCPCS: 82962; G0277; 99183 ==

== ENCOUNTER 2017-01-04 09:17 | Outpatient (CLI) | payer MEDICARE | END 2017-01-04 09:18 | disposition home or self-care (01) | LOC: WOUND 09:17 | PROVIDERS: ATTEND Podiatrist | DX: E11.621 Type 2 diabetes mellitus with foot ulcer (principal); L97.421 Non-pressure chronic ulcer of left heel and midfoot limited to breakdown of skin; E78.2 Mixed hyperlipidemia; H25.013 Cortical age-related cataract, bilateral; E11.69 Type 2 diabetes mellitus with other specified complication; M86.572 Other chronic hematogenous osteomyelitis, left ankle and foot; E11.22 Type 2 diabetes mellitus with diabetic chronic kidney disease; I12.9 Hypertensive chronic kidney disease with stage 1 through stage 4 chronic kidney disease, or unspecified chronic kidney disease; N18.3 Chronic kidney disease, stage 3 (moderate); E11.51 Type 2 diabetes mellitus with diabetic peripheral angiopathy without gangrene; Z86.73 Personal history of transient ischemic attack (TIA), and cerebral infarction without residual deficits; Z87.891 Personal history of nicotine dependence | CPT/HCPCS: 82962; G0277; 99183 ==

== ENCOUNTER 2017-01-07 09:24 | Outpatient (CLI) | payer MEDICARE | END 2017-01-07 09:25 | disposition home or self-care (01) | LOC: WOUND 09:24 | PROVIDERS: ATTEND Internal Medicine | DX: E11.621 Type 2 diabetes mellitus with foot ulcer (principal); L97.421 Non-pressure chronic ulcer of left heel and midfoot limited to breakdown of skin; E11.51 Type 2 diabetes mellitus with diabetic peripheral angiopathy without gangrene; I10 Essential (primary) hypertension; E78.5 Hyperlipidemia, unspecified; Z86.73 Personal history of transient ischemic attack (TIA), and cerebral infarction without residual deficits; Z89.611 Acquired absence of right leg above knee; Z87.891 Personal history of nicotine dependence | CPT/HCPCS: 82962; G0277; 99183 ==

== ENCOUNTER 2017-01-08 09:20 | Outpatient (CLI) | payer MEDICARE | END 2017-01-08 09:21 | disposition home or self-care (01) | LOC: WOUND 09:20 | PROVIDERS: ATTEND Surgery | DX: E11.621 Type 2 diabetes mellitus with foot ulcer (principal); L97.421 Non-pressure chronic ulcer of left heel and midfoot limited to breakdown of skin; E11.69 Type 2 diabetes mellitus with other specified complication; M86.572 Other chronic hematogenous osteomyelitis, left ankle and foot; H25.013 Cortical age-related cataract, bilateral; E11.22 Type 2 diabetes mellitus with diabetic chronic kidney disease; I12.9 Hypertensive chronic kidney disease with stage 1 through stage 4 chronic kidney disease, or unspecified chronic kidney disease; N18.3 Chronic kidney disease, stage 3 (moderate); E78.2 Mixed hyperlipidemia; E11.51 Type 2 diabetes mellitus with diabetic peripheral angiopathy without gangrene; Z86.73 Personal history of transient ischemic attack (TIA), and cerebral infarction without residual deficits; Z89.611 Acquired absence of right leg above knee; Z87.891 Personal history of nicotine dependence | CPT/HCPCS: 82962; G0277; 99183 ==

== ENCOUNTER 2017-01-09 09:23 | Outpatient (CLI) | payer MEDICARE | END 2017-01-09 09:24 | disposition home or self-care (01) | LOC: WOUND 09:23 | PROVIDERS: ATTEND Surgery | DX: E11.621 Type 2 diabetes mellitus with foot ulcer (principal); L97.421 Non-pressure chronic ulcer of left heel and midfoot limited to breakdown of skin; E11.69 Type 2 diabetes mellitus with other specified complication; M86.572 Other chronic hematogenous osteomyelitis, left ankle and foot; E11.51 Type 2 diabetes mellitus with diabetic peripheral angiopathy without gangrene; E11.22 Type 2 diabetes mellitus with diabetic chronic kidney disease; I12.9 Hypertensive chronic kidney disease with stage 1 through stage 4 chronic kidney disease, or unspecified chronic kidney disease; N18.3 Chronic kidney disease, stage 3 (moderate); E78.2 Mixed hyperlipidemia; H25.013 Cortical age-related cataract, bilateral; Z86.73 Personal history of transient ischemic attack (TIA), and cerebral infarction without residual deficits; Z87.891 Personal history of nicotine dependence; Z89.611 Acquired absence of right leg above knee | CPT/HCPCS: 82962; G0277; 99183 ==

== ENCOUNTER 2017-01-10 09:17 | Outpatient (CLI) | payer MEDICARE | END 2017-01-10 09:18 | disposition home or self-care (01) | LOC: WOUND 09:17 | PROVIDERS: ATTEND Nurse Practitioner | DX: E11.621 Type 2 diabetes mellitus with foot ulcer (principal); L97.421 Non-pressure chronic ulcer of left heel and midfoot limited to breakdown of skin; E11.69 Type 2 diabetes mellitus with other specified complication; M86.572 Other chronic hematogenous osteomyelitis, left ankle and foot; E11.22 Type 2 diabetes mellitus with diabetic chronic kidney disease; I12.9 Hypertensive chronic kidney disease with stage 1 through stage 4 chronic kidney disease, or unspecified chronic kidney disease; N18.3 Chronic kidney disease, stage 3 (moderate); E78.2 Mixed hyperlipidemia; H25.013 Cortical age-related cataract, bilateral; E11.51 Type 2 diabetes mellitus with diabetic peripheral angiopathy without gangrene; Z86.73 Personal history of transient ischemic attack (TIA), and cerebral infarction without residual deficits; Z89.611 Acquired absence of right leg above knee; Z87.891 Personal history of nicotine dependence | CPT/HCPCS: 82962; G0277; 99183 ==

== ENCOUNTER 2017-01-15 09:24 | Outpatient (CLI) | payer MEDICARE | END 2017-01-15 09:25 | disposition home or self-care (01) | LOC: WOUND 09:24 | PROVIDERS: ATTEND Surgery | DX: E11.621 Type 2 diabetes mellitus with foot ulcer (principal); L97.421 Non-pressure chronic ulcer of left heel and midfoot limited to breakdown of skin; E11.69 Type 2 diabetes mellitus with other specified complication; M86.572 Other chronic hematogenous osteomyelitis, left ankle and foot; E78.2 Mixed hyperlipidemia; H25.013 Cortical age-related cataract, bilateral; E11.22 Type 2 diabetes mellitus with diabetic chronic kidney disease; I12.9 Hypertensive chronic kidney disease with stage 1 through stage 4 chronic kidney disease, or unspecified chronic kidney disease; N18.3 Chronic kidney disease, stage 3 (moderate); E11.51 Type 2 diabetes mellitus with diabetic peripheral angiopathy without gangrene; Z86.73 Personal history of transient ischemic attack (TIA), and cerebral infarction without residual deficits; Z89.611 Acquired absence of right leg above knee; Z87.891 Personal history of nicotine dependence | CPT/HCPCS: 82962; G0277; 99183 ==

== ENCOUNTER 2017-01-16 09:42 | Outpatient (CLI) | payer MEDICARE | END 2017-01-16 09:43 | disposition home or self-care (01) | LOC: WOUND 09:42 | PROVIDERS: ATTEND Surgery | DX: E11.621 Type 2 diabetes mellitus with foot ulcer (principal); L97.421 Non-pressure chronic ulcer of left heel and midfoot limited to breakdown of skin; E11.69 Type 2 diabetes mellitus with other specified complication; M86.572 Other chronic hematogenous osteomyelitis, left ankle and foot; E78.2 Mixed hyperlipidemia; H25.013 Cortical age-related cataract, bilateral; E11.22 Type 2 diabetes mellitus with diabetic chronic kidney disease; I12.9 Hypertensive chronic kidney disease with stage 1 through stage 4 chronic kidney disease, or unspecified chronic kidney disease; N18.3 Chronic kidney disease, stage 3 (moderate); E11.51 Type 2 diabetes mellitus with diabetic peripheral angiopathy without gangrene; Z86.73 Personal history of transient ischemic attack (TIA), and cerebral infarction without residual deficits; Z89.611 Acquired absence of right leg above knee; Z87.891 Personal history of nicotine dependence | CPT/HCPCS: 82962; G0277; 99183 ==

== ENCOUNTER 2017-01-17 14:01 | Outpatient (CLI) | payer MEDICARE | END 2017-01-17 14:02 | disposition home or self-care (01) | LOC: WOUND 14:01 | PROVIDERS: ATTEND Nurse Practitioner | DX: E11.621 Type 2 diabetes mellitus with foot ulcer (principal); L97.421 Non-pressure chronic ulcer of left heel and midfoot limited to breakdown of skin; L97.521 Non-pressure chronic ulcer of other part of left foot limited to breakdown of skin; E11.22 Type 2 diabetes mellitus with diabetic chronic kidney disease; I12.9 Hypertensive chronic kidney disease with stage 1 through stage 4 chronic kidney disease, or unspecified chronic kidney disease; N18.3 Chronic kidney disease, stage 3 (moderate); E78.2 Mixed hyperlipidemia; I10 Essential (primary) hypertension; E11.69 Type 2 diabetes mellitus with other specified complication; M86.572 Other chronic hematogenous osteomyelitis, left ankle and foot; Z86.73 Personal history of transient ischemic attack (TIA), and cerebral infarction without residual deficits; Z89.611 Acquired absence of right leg above knee; Z87.891 Personal history of nicotine dependence | CPT/HCPCS: 82962; G0277; 99183 ==

== ENCOUNTER 2017-01-18 09:26 | Outpatient (CLI) | payer MEDICARE | END 2017-01-18 09:27 | disposition home or self-care (01) | LOC: WOUND 09:26 | PROVIDERS: ATTEND Podiatrist | DX: E11.621 Type 2 diabetes mellitus with foot ulcer (principal); L97.421 Non-pressure chronic ulcer of left heel and midfoot limited to breakdown of skin; H25.013 Cortical age-related cataract, bilateral; E11.22 Type 2 diabetes mellitus with diabetic chronic kidney disease; I13.10 Hypertensive heart and chronic kidney disease without heart failure, with stage 1 through stage 4 chronic kidney disease, or unspecified chronic kidney disease; N18.3 Chronic kidney disease, stage 3 (moderate); E78.2 Mixed hyperlipidemia; E11.69 Type 2 diabetes mellitus with other specified complication; M86.572 Other chronic hematogenous osteomyelitis, left ankle and foot; E11.51 Type 2 diabetes mellitus with diabetic peripheral angiopathy without gangrene; Z86.73 Personal history of transient ischemic attack (TIA), and cerebral infarction without residual deficits; Z89.611 Acquired absence of right leg above knee; Z87.891 Personal history of nicotine dependence | CPT/HCPCS: 82962; G0277; 99183 ==

== ENCOUNTER 2017-01-23 09:27 | Outpatient (CLI) | payer MEDICARE | END 2017-01-23 09:28 | disposition home or self-care (01) | LOC: WOUND 09:27 | PROVIDERS: ATTEND Surgery | DX: E11.621 Type 2 diabetes mellitus with foot ulcer (principal); L97.429 Non-pressure chronic ulcer of left heel and midfoot with unspecified severity; E11.69 Type 2 diabetes mellitus with other specified complication; M86.572 Other chronic hematogenous osteomyelitis, left ankle and foot; E11.22 Type 2 diabetes mellitus with diabetic chronic kidney disease; I12.9 Hypertensive chronic kidney disease with stage 1 through stage 4 chronic kidney disease, or unspecified chronic kidney disease; N18.3 Chronic kidney disease, stage 3 (moderate); E78.2 Mixed hyperlipidemia; H25.013 Cortical age-related cataract, bilateral; E11.51 Type 2 diabetes mellitus with diabetic peripheral angiopathy without gangrene; Z86.73 Personal history of transient ischemic attack (TIA), and cerebral infarction without residual deficits; Z89.611 Acquired absence of right leg above knee; Z87.891 Personal history of nicotine dependence | CPT/HCPCS: 82962; G0277; 99183 ==

== ENCOUNTER 2017-01-24 09:25 | Outpatient (CLI) | payer MEDICARE | END 2017-01-24 09:26 | disposition home or self-care (01) | LOC: WOUND 09:25 | PROVIDERS: ATTEND Nurse Practitioner | DX: E11.621 Type 2 diabetes mellitus with foot ulcer (principal); L97.421 Non-pressure chronic ulcer of left heel and midfoot limited to breakdown of skin; E78.2 Mixed hyperlipidemia; H25.013 Cortical age-related cataract, bilateral; E11.69 Type 2 diabetes mellitus with other specified complication; M86.572 Other chronic hematogenous osteomyelitis, left ankle and foot; E11.22 Type 2 diabetes mellitus with diabetic chronic kidney disease; I12.9 Hypertensive chronic kidney disease with stage 1 through stage 4 chronic kidney disease, or unspecified chronic kidney disease; N18.3 Chronic kidney disease, stage 3 (moderate); E11.51 Type 2 diabetes mellitus with diabetic peripheral angiopathy without gangrene; Z86.73 Personal history of transient ischemic attack (TIA), and cerebral infarction without residual deficits; Z87.891 Personal history of nicotine dependence | CPT/HCPCS: 82962; G0277; 99183 ==

== ENCOUNTER 2017-01-25 09:27 | Outpatient (CLI) | payer MEDICARE | END 2017-01-25 09:28 | disposition home or self-care (01) | LOC: WOUND 09:27 | PROVIDERS: ATTEND Podiatrist | DX: E11.621 Type 2 diabetes mellitus with foot ulcer (principal); L97.421 Non-pressure chronic ulcer of left heel and midfoot limited to breakdown of skin; E78.2 Mixed hyperlipidemia; E11.69 Type 2 diabetes mellitus with other specified complication; M86.572 Other chronic hematogenous osteomyelitis, left ankle and foot; H25.013 Cortical age-related cataract, bilateral; E11.22 Type 2 diabetes mellitus with diabetic chronic kidney disease; I12.9 Hypertensive chronic kidney disease with stage 1 through stage 4 chronic kidney disease, or unspecified chronic kidney disease; N18.3 Chronic kidney disease, stage 3 (moderate); E11.51 Type 2 diabetes mellitus with diabetic peripheral angiopathy without gangrene; Z86.73 Personal history of transient ischemic attack (TIA), and cerebral infarction without residual deficits; Z87.891 Personal history of nicotine dependence | CPT/HCPCS: 82962; G0277; 99183 ==

== ENCOUNTER 2017-01-28 08:58 | Outpatient (CLI) | payer MEDICARE ==
[2017-01-28] MEDS ORDERED: XYLOCAINE TOPICAL 4% TP ONE ×2 (09:11→09:28)
== END 2017-01-28 08:59 | disposition home or self-care (01) ==
LOC: WOUND 08:58
PROVIDERS: ATTEND Internal Medicine
DX: E11.621 Type 2 diabetes mellitus with foot ulcer (principal); L97.421 Non-pressure chronic ulcer of left heel and midfoot limited to breakdown of skin; E11.69 Type 2 diabetes mellitus with other specified complication; M86.572 Other chronic hematogenous osteomyelitis, left ankle and foot; E11.22 Type 2 diabetes mellitus with diabetic chronic kidney disease; I12.9 Hypertensive chronic kidney disease with stage 1 through stage 4 chronic kidney disease, or unspecified chronic kidney disease; N18.3 Chronic kidney disease, stage 3 (moderate); E78.2 Mixed hyperlipidemia; H25.013 Cortical age-related cataract, bilateral; E11.51 Type 2 diabetes mellitus with diabetic peripheral angiopathy without gangrene; Z86.73 Personal history of transient ischemic attack (TIA), and cerebral infarction without residual deficits; Z89.611 Acquired absence of right leg above knee; Z87.891 Personal history of nicotine dependence
CPT/HCPCS: 11042; 11045; 82962; G0277; 99183

== ENCOUNTER 2017-01-29 09:41 | Outpatient (CLI) | payer MEDICARE | END 2017-01-29 09:42 | disposition home or self-care (01) | LOC: WOUND 09:41 | PROVIDERS: ATTEND Surgery | DX: E11.621 Type 2 diabetes mellitus with foot ulcer (principal); L97.421 Non-pressure chronic ulcer of left heel and midfoot limited to breakdown of skin; E11.69 Type 2 diabetes mellitus with other specified complication; M86.572 Other chronic hematogenous osteomyelitis, left ankle and foot; E11.22 Type 2 diabetes mellitus with diabetic chronic kidney disease; I12.9 Hypertensive chronic kidney disease with stage 1 through stage 4 chronic kidney disease, or unspecified chronic kidney disease; N18.3 Chronic kidney disease, stage 3 (moderate); E78.2 Mixed hyperlipidemia; H25.013 Cortical age-related cataract, bilateral; Z86.73 Personal history of transient ischemic attack (TIA), and cerebral infarction without residual deficits; E11.51 Type 2 diabetes mellitus with diabetic peripheral angiopathy without gangrene; Z87.891 Personal history of nicotine dependence | CPT/HCPCS: 82962; G0277; 99183 ==

== ENCOUNTER 2017-01-30 09:19 | Outpatient (CLI) | payer MEDICARE | END 2017-01-30 09:20 | disposition home or self-care (01) | LOC: WOUND 09:19 | PROVIDERS: ATTEND Surgery | DX: E11.621 Type 2 diabetes mellitus with foot ulcer (principal); L97.421 Non-pressure chronic ulcer of left heel and midfoot limited to breakdown of skin; E11.69 Type 2 diabetes mellitus with other specified complication; M86.572 Other chronic hematogenous osteomyelitis, left ankle and foot; H25.013 Cortical age-related cataract, bilateral; E78.2 Mixed hyperlipidemia; E11.22 Type 2 diabetes mellitus with diabetic chronic kidney disease; I12.9 Hypertensive chronic kidney disease with stage 1 through stage 4 chronic kidney disease, or unspecified chronic kidney disease; N18.3 Chronic kidney disease, stage 3 (moderate); E11.51 Type 2 diabetes mellitus with diabetic peripheral angiopathy without gangrene; Z86.73 Personal history of transient ischemic attack (TIA), and cerebral infarction without residual deficits; Z87.891 Personal history of nicotine dependence | CPT/HCPCS: 82962; G0277; 99183 ==

== ENCOUNTER 2017-02-18 09:06 | Outpatient (CLI) | payer MEDICARE ==
[2017-02-18] MEDS ORDERED: XYLOCAINE TOPICAL 4% TP ONE ×2 (09:30→09:31)
[2017-02-18] MEDS ORDERED: SILVER NITRATE TP ONE ×2 (10:19→15:39)
== END 2017-02-18 09:07 | disposition home or self-care (01) ==
LOC: WOUND 09:06
PROVIDERS: ATTEND Internal Medicine
DX: E11.621 Type 2 diabetes mellitus with foot ulcer (principal); L97.521 Non-pressure chronic ulcer of other part of left foot limited to breakdown of skin; E11.51 Type 2 diabetes mellitus with diabetic peripheral angiopathy without gangrene; E11.22 Type 2 diabetes mellitus with diabetic chronic kidney disease; I12.9 Hypertensive chronic kidney disease with stage 1 through stage 4 chronic kidney disease, or unspecified chronic kidney disease; N18.3 Chronic kidney disease, stage 3 (moderate); E78.2 Mixed hyperlipidemia; H25.013 Cortical age-related cataract, bilateral; E11.69 Type 2 diabetes mellitus with other specified complication; M86.572 Other chronic hematogenous osteomyelitis, left ankle and foot; Z86.73 Personal history of transient ischemic attack (TIA), and cerebral infarction without residual deficits; Z89.611 Acquired absence of right leg above knee

== ENCOUNTER 2017-04-01 10:30 | Outpatient (CLI) | payer MEDICARE ==
[2017-04-01] MEDS ORDERED: XYLOCAINE TOPICAL 4% TP ONE ×2 (11:41→11:43)
== END 2017-04-01 10:31 | disposition home or self-care (01) ==
LOC: WOUND 10:30
PROVIDERS: ATTEND Internal Medicine
DX: E11.621 Type 2 diabetes mellitus with foot ulcer (principal); L97.521 Non-pressure chronic ulcer of other part of left foot limited to breakdown of skin; E11.51 Type 2 diabetes mellitus with diabetic peripheral angiopathy without gangrene; E11.22 Type 2 diabetes mellitus with diabetic chronic kidney disease; I12.9 Hypertensive chronic kidney disease with stage 1 through stage 4 chronic kidney disease, or unspecified chronic kidney disease; N18.3 Chronic kidney disease, stage 3 (moderate); E78.2 Mixed hyperlipidemia; E11.69 Type 2 diabetes mellitus with other specified complication; M86.572 Other chronic hematogenous osteomyelitis, left ankle and foot; L84 Corns and callosities; H25.013 Cortical age-related cataract, bilateral; Z86.73 Personal history of transient ischemic attack (TIA), and cerebral infarction without residual deficits; Z89.611 Acquired absence of right leg above knee; Z87.891 Personal history of nicotine dependence

== ENCOUNTER 2017-04-08 12:11 | Outpatient (CLI) | payer MEDICARE ==
[2017-04-08] MEDS ORDERED: XYLOCAINE TOPICAL 2% ONE (14:42)
[2017-04-08] MEDS ORDERED: XYLOCAINE TOPICAL 2% TP ONE (15:00)
== END 2017-04-08 12:12 | disposition home or self-care (01) ==
LOC: WOUND 12:11
PROVIDERS: ATTEND Internal Medicine
DX: E11.621 Type 2 diabetes mellitus with foot ulcer (principal); L97.521 Non-pressure chronic ulcer of other part of left foot limited to breakdown of skin; E11.69 Type 2 diabetes mellitus with other specified complication; M86.572 Other chronic hematogenous osteomyelitis, left ankle and foot; E11.22 Type 2 diabetes mellitus with diabetic chronic kidney disease; I12.9 Hypertensive chronic kidney disease with stage 1 through stage 4 chronic kidney disease, or unspecified chronic kidney disease; N18.3 Chronic kidney disease, stage 3 (moderate); E78.2 Mixed hyperlipidemia; E11.51 Type 2 diabetes mellitus with diabetic peripheral angiopathy without gangrene; Z86.73 Personal history of transient ischemic attack (TIA), and cerebral infarction without residual deficits; Z89.611 Acquired absence of right leg above knee; Z87.891 Personal history of nicotine dependence

== ENCOUNTER 2017-04-22 13:59 | Outpatient (CLI) | payer MEDICARE ==
[2017-04-22] MEDS ORDERED: XYLOCAINE TOPICAL 4% TP ONE ×2 (14:32)
== END 2017-04-22 14:00 | disposition home or self-care (01) ==
LOC: WOUND 13:59
PROVIDERS: ATTEND Internal Medicine
DX: E11.621 Type 2 diabetes mellitus with foot ulcer (principal); L97.521 Non-pressure chronic ulcer of other part of left foot limited to breakdown of skin; E11.69 Type 2 diabetes mellitus with other specified complication; M86.572 Other chronic hematogenous osteomyelitis, left ankle and foot; E78.2 Mixed hyperlipidemia; E11.22 Type 2 diabetes mellitus with diabetic chronic kidney disease; I12.9 Hypertensive chronic kidney disease with stage 1 through stage 4 chronic kidney disease, or unspecified chronic kidney disease; N18.3 Chronic kidney disease, stage 3 (moderate); E11.51 Type 2 diabetes mellitus with diabetic peripheral angiopathy without gangrene; I10 Essential (primary) hypertension; Z86.73 Personal history of transient ischemic attack (TIA), and cerebral infarction without residual deficits; Z89.611 Acquired absence of right leg above knee

== ENCOUNTER 2017-05-20 10:48 | Outpatient (CLI) | payer MEDICARE ==
[2017-05-20] MEDS ORDERED: XYLOCAINE TOPICAL 4% TP ONE ×2 (11:28→11:30)
== END 2017-05-20 10:49 | disposition home or self-care (01) ==
LOC: WOUND 10:48
PROVIDERS: ATTEND Internal Medicine
DX: E11.621 Type 2 diabetes mellitus with foot ulcer (principal); E11.69 Type 2 diabetes mellitus with other specified complication; M86.572 Other chronic hematogenous osteomyelitis, left ankle and foot; E11.22 Type 2 diabetes mellitus with diabetic chronic kidney disease; I12.9 Hypertensive chronic kidney disease with stage 1 through stage 4 chronic kidney disease, or unspecified chronic kidney disease; N18.3 Chronic kidney disease, stage 3 (moderate); E78.5 Hyperlipidemia, unspecified; H25.013 Cortical age-related cataract, bilateral; E11.51 Type 2 diabetes mellitus with diabetic peripheral angiopathy without gangrene; Z86.73 Personal history of transient ischemic attack (TIA), and cerebral infarction without residual deficits; Z89.611 Acquired absence of right leg above knee; Z87.891 Personal history of nicotine dependence

== ENCOUNTER 2017-06-10 09:08 | Outpatient (CLI) | payer MEDICARE ==
[2017-06-10] MEDS ORDERED: XYLOCAINE TOPICAL 4% TP ONE ×2 (09:28→09:34)
== END 2017-06-10 09:09 | disposition home or self-care (01) ==
LOC: WOUND 09:08
PROVIDERS: ATTEND Internal Medicine
DX: E11.621 Type 2 diabetes mellitus with foot ulcer (principal); L97.521 Non-pressure chronic ulcer of other part of left foot limited to breakdown of skin; E11.69 Type 2 diabetes mellitus with other specified complication; M86.572 Other chronic hematogenous osteomyelitis, left ankle and foot; E11.22 Type 2 diabetes mellitus with diabetic chronic kidney disease; I12.9 Hypertensive chronic kidney disease with stage 1 through stage 4 chronic kidney disease, or unspecified chronic kidney disease; N18.3 Chronic kidney disease, stage 3 (moderate); E78.5 Hyperlipidemia, unspecified; H25.013 Cortical age-related cataract, bilateral; E11.51 Type 2 diabetes mellitus with diabetic peripheral angiopathy without gangrene; Z86.73 Personal history of transient ischemic attack (TIA), and cerebral infarction without residual deficits; Z89.611 Acquired absence of right leg above knee; Z87.891 Personal history of nicotine dependence

== ENCOUNTER 2017-07-15 09:27 | Outpatient (CLI) | payer MEDICARE ==
[2017-07-15] MEDS ORDERED: XYLOCAINE TOPICAL 4% TP ONE ×2 (10:21→10:23)
== END 2017-07-15 09:28 | disposition home or self-care (01) ==
LOC: WOUND 09:27
PROVIDERS: ATTEND Internal Medicine
DX: E11.621 Type 2 diabetes mellitus with foot ulcer (principal); L97.521 Non-pressure chronic ulcer of other part of left foot limited to breakdown of skin; E78.2 Mixed hyperlipidemia; H25.013 Cortical age-related cataract, bilateral; E11.22 Type 2 diabetes mellitus with diabetic chronic kidney disease; I12.9 Hypertensive chronic kidney disease with stage 1 through stage 4 chronic kidney disease, or unspecified chronic kidney disease; N18.3 Chronic kidney disease, stage 3 (moderate); E11.51 Type 2 diabetes mellitus with diabetic peripheral angiopathy without gangrene; E11.69 Type 2 diabetes mellitus with other specified complication; M86.572 Other chronic hematogenous osteomyelitis, left ankle and foot; Z86.73 Personal history of transient ischemic attack (TIA), and cerebral infarction without residual deficits; Z89.611 Acquired absence of right leg above knee; Z87.891 Personal history of nicotine dependence

== ENCOUNTER 2017-07-29 09:38 | Outpatient (CLI) | payer MEDICARE ==
[2017-07-29] MEDS ORDERED: XYLOCAINE TOPICAL 4% TP ONE ×2 (10:12→10:13)
== END 2017-07-29 09:39 | disposition home or self-care (01) ==
LOC: WOUND 09:38
PROVIDERS: ATTEND Internal Medicine
DX: E11.621 Type 2 diabetes mellitus with foot ulcer (principal); L97.521 Non-pressure chronic ulcer of other part of left foot limited to breakdown of skin; E78.2 Mixed hyperlipidemia; H25.013 Cortical age-related cataract, bilateral; E11.22 Type 2 diabetes mellitus with diabetic chronic kidney disease; I12.9 Hypertensive chronic kidney disease with stage 1 through stage 4 chronic kidney disease, or unspecified chronic kidney disease; N18.3 Chronic kidney disease, stage 3 (moderate); E11.51 Type 2 diabetes mellitus with diabetic peripheral angiopathy without gangrene; E11.69 Type 2 diabetes mellitus with other specified complication; M86.572 Other chronic hematogenous osteomyelitis, left ankle and foot; Z86.73 Personal history of transient ischemic attack (TIA), and cerebral infarction without residual deficits; Z89.611 Acquired absence of right leg above knee; Z87.891 Personal history of nicotine dependence

== ENCOUNTER 2017-08-19 09:29 | Outpatient (CLI) | payer MEDICARE ==
[2017-08-19] MEDS ORDERED: XYLOCAINE TOPICAL 4% TP ONE ×2 (10:32→10:41)
== END 2017-08-19 09:30 | disposition home or self-care (01) ==
LOC: WOUND 09:29
PROVIDERS: ATTEND Internal Medicine
DX: E11.621 Type 2 diabetes mellitus with foot ulcer (principal); L97.521 Non-pressure chronic ulcer of other part of left foot limited to breakdown of skin; E11.51 Type 2 diabetes mellitus with diabetic peripheral angiopathy without gangrene; E11.69 Type 2 diabetes mellitus with other specified complication; M86.572 Other chronic hematogenous osteomyelitis, left ankle and foot; E78.2 Mixed hyperlipidemia; E11.22 Type 2 diabetes mellitus with diabetic chronic kidney disease; I12.9 Hypertensive chronic kidney disease with stage 1 through stage 4 chronic kidney disease, or unspecified chronic kidney disease; N18.3 Chronic kidney disease, stage 3 (moderate); H25.013 Cortical age-related cataract, bilateral; Z89.611 Acquired absence of right leg above knee; Z86.73 Personal history of transient ischemic attack (TIA), and cerebral infarction without residual deficits; Z87.891 Personal history of nicotine dependence

== ENCOUNTER 2017-09-16 09:36 | Outpatient (CLI) | payer MEDICARE ==
[2017-09-16] MEDS ORDERED: XYLOCAINE TOPICAL 4% TP ONE ×2 (10:29→10:35)
== END 2017-09-16 09:37 | disposition home or self-care (01) ==
LOC: WOUND 09:36
PROVIDERS: ATTEND Surgery
DX: E11.621 Type 2 diabetes mellitus with foot ulcer (principal); L97.521 Non-pressure chronic ulcer of other part of left foot limited to breakdown of skin; E11.51 Type 2 diabetes mellitus with diabetic peripheral angiopathy without gangrene; E11.69 Type 2 diabetes mellitus with other specified complication; M86.572 Other chronic hematogenous osteomyelitis, left ankle and foot; E78.2 Mixed hyperlipidemia; E11.22 Type 2 diabetes mellitus with diabetic chronic kidney disease; I12.9 Hypertensive chronic kidney disease with stage 1 through stage 4 chronic kidney disease, or unspecified chronic kidney disease; N18.3 Chronic kidney disease, stage 3 (moderate); H25.013 Cortical age-related cataract, bilateral; Z89.611 Acquired absence of right leg above knee; Z86.73 Personal history of transient ischemic attack (TIA), and cerebral infarction without residual deficits; Z87.891 Personal history of nicotine dependence

== ENCOUNTER 2017-10-20 13:05 | Inpatient (IN) | payer MEDICARE ==
[2017-10-20 14:37] LABS: Basophils % (Auto) 0.4 % (0.0-1.8); Eosinophils # (Auto) 0.1 K/mm3 (0.0-0.4); Eosinophils % (Auto) 0.9 % (0.0-4.3); Hematocrit 23.9 % (30.3-42.9); Hemoglobin 7.1 gm/dl (10.1-14.3); Lymphocytes # (Auto) 1.2 K/mm3 (1.2-5.4); Lymphocytes % (Auto) 13.2 % (13.4-35.0); Mean Corpuscular HGB Conc 30 % (30-34); Monocytes # (Auto) 0.7 K/mm3 (0.0-0.8); Monocytes % (Auto) 7.2 % (0.0-7.3); Platelet Count 344 K/mm3 (140-440); Red Blood Count 3.42 M/mm3 (3.65-5.03); Red Cell Distribution Width 15.3 % (13.2-15.2)
[2017-10-20 14:48] LABS: Calcium 8.7 mg/dL (8.4-10.2); Mean Corpuscular Hemoglobin 21 pg (28-32); Mean Corpuscular Volume 70 fl (79-97)
[2017-10-20] MEDS ORDERED: KIONEX PO ONE (15:06)
--- NOTE | 2017-10-20 15:52 | Emergency Department Report ---
ED General Adult HPI - General Chief complaint: Wound/Laceration Stated complaint: LEFT FOOT INJURY Time Seen by Provider: 10/20/17 14:19 Source: patient Mode of arrival: Ambulatory Limitations: No Limitations - History of Present Illness Initial comments: 77-year-old woman with multiple chronic comorbidities, comes in with persistent bleeding after injuring a chronically ulcerated left foot while she was twisting to get back into wheelchair earlier today, just prior to arrival. Patient is diabetic, hypertensive, has severe peripheral vascular disease, and prior right [id number]-loas amputation, with chronic ulcerations of left lower extremity, which large chronic ulcer being treated wound care clinic, which is the source of her current bleeding. Family reports the patient lost a lot of blood, but also reports the patient is chronically anemic, and gets Procrit injections on a regular basis, and that patient's last hemoglobin was 7.2 g.. Family was unable to get wound to stop bleeding on its own, reporting that she takes Plavix. - Related Data Home Medications Medication Instructions Recorded Confirmed Last Taken Ascorbate Calcium [Vitamin C] 500 mg PO QDAY 12/10/13 06/06/15 1 Day Ago ~09/20/14 Atorvastatin [Lipitor] 40 mg PO QPM 12/10/13 06/06/15 1 Day Ago ~09/20/14 Gabapentin 300 mg PO HS PRN 12/10/13 06/06/15 1 Day Ago ~09/20/14 Metoprolol Tartrate 100 mg PO QDAY 12/10/13 06/06/15 1 Day Ago ~09/20/14 NIFEdipine [Nifedipine ER] 60 mg PO DAILY 12/10/13 06/06/15 1 Day Ago ~09/20/14 glipiZIDE [Glucotrol] 1 tab PO QAM 05/07/14 06/06/15 1 Day Ago ~09/20/14 Vitamin D 1 cap PO QWEEK 03/21/15 06/06/15 Unknown Clopidogrel [Plavix] 1 tab PO DAILY 06/06/15 06/06/15 Unknown glipiZIDE 0.5 tab PO QPM 06/06/15 06/06/15 Unknown Allergies Allergy/AdvReac Type Severity Reaction Status Date / Time Sulfa (Sulfonamide Allergy Hives Verified 10/20/17 13:11 Antibiotics) ED Review of Systems ROS: Stated complaint: LEFT FOOT INJURY Other details as noted in HPI Comment: All other systems reviewed and negative Constitutional: denies: chills, fever Eyes: denies: eye pain, eye discharge, vision change ENT: denies: ear pain, throat pain Respiratory: denies: cough, shortness of breath, wheezing Cardiovascular: denies: chest pain, palpitations Endocrine: no symptoms reported Gastrointestinal: denies: abdominal pain, nausea, diarrhea Musculoskeletal: other (past above knee amputation on the right, chronic ulceration left foot) Skin: other (ulceration as noted above) Neurological: denies: headache, weakness, paresthesias Psychiatric: denies: anxiety, depression Hematological/Lymphatic: easy bleeding (takes Plavix) ED Past Medical Hx - Past Medical History Hx Hypertension: Yes Hx Heart Attack/AMI: Yes Hx Congestive Heart Failure: Yes Hx Diabetes: Yes Hx Deep Vein Thrombosis: No Hx Renal Disease: Yes (CHRONIC) Hx Asthma: Yes Hx Tuberculosis: No Hx HIV: No Additional medical history: Right BKA - Surgical History Hx Coronary Stent: Yes Hx Pacemaker: No Hx Internal Defibrillator: No Additional Surgical History: R. AKA, arterial graft L leg - Social History Smoking Status: Never Smoker Substance Use Type: None - Medications Home Medications: Home Medications Medication Instructions Recorded Confirmed Last Taken Type Ascorbate Calcium [Vitamin C] 500 mg PO QDAY 12/10/13 06/06/15 1 Day Ago History ~09/20/14 Atorvastatin [Lipitor] 40 mg PO QPM 12/10/13 06/06/15 1 Day Ago History ~09/20/14 Gabapentin 300 mg PO HS PRN 12/10/13 06/06/15 1 Day Ago History ~09/20/14 Metoprolol Tartrate 100 mg PO QDAY 12/10/13 06/06/15 1 Day Ago History ~09/20/14 NIFEdipine [Nifedipine ER] 60 mg PO DAILY 12/10/13 06/06/15 1 Day Ago History ~09/20/14 glipiZIDE [Glucotrol] 1 tab PO QAM 05/07/14 06/06/15 1 Day Ago History ~09/20/14 Vitamin D 1 cap PO QWEEK 03/21/15 06/06/15 Unknown History Clopidogrel [Plavix] 1 tab PO DAILY 06/06/15 06/06/15 Unknown History glipiZIDE 0.5 tab PO QPM 06/06/15 06/06/15 Unknown History ED Physical Exam - General Limitations: No Limitations General appearance: alert, in distress (moderate discomfort from foot wound) - Head Head exam: Present: atraumatic - Eye Eye exam: Present: PERRL - ENT ENT exam: Present: mucous membranes moist - Neck Neck exam: Present: normal inspection. Absent: tenderness - Respiratory Respiratory exam: Present: normal lung sounds bilaterally. Absent: respiratory distress, wheezes, rales - Cardiovascular Cardiovascular Exam: Present: regular rate, normal heart sounds - GI/Abdominal GI/Abdominal exam: Present: soft. Absent: tenderness - Rectal Rectal exam: Present: deferred - Extremities Exam Extremities exam: Present: other (right above-knee amputation, chronic ulcerations left foot, large, lateral aspect.) - Neurological Exam Neurological exam: Present: alert, oriented X3, CN II-XII intact - Psychiatric Psychiatric exam: Present: normal affect, normal mood - Skin Skin exam: Present: other (chronic left foot ulcer, no active bleeding) ED Course Vital Signs 10/20/17 13:12 Temperature 37.0 C Pulse Rate 90 Respiratory 18 Rate Blood Pressure 103/55 O2 Sat by Pulse 97 Oximetry - Reevaluation(s) Reevaluation #1: 10/20/17 15:51 Wound examined, no further bleeding on observation, and foot was read ended. - Consultations Consultation #1: 10/20/17 15:51 Dr. Chan, hospitalist chemical reclamation equipment operator contacted for finding of acute hyperkalemia, and will treat patient, with initial order of Kayexalate and calcium chloride ordered. Patient is asymptomatic. ED Medical Decision Making - Lab Data Result diagrams: 10/20/17 14:27 10/20/17 14:27 - Medical Decision Making Patient is clinically stable, showing no acute palpation findings from hyperkalemia, is not actively bleeding, and hemoglobin is stable at 7.1, but patient will need hospitalization for correction of her hyperkalemia. Critical Care Time: Yes Critical care attestation.: If time is entered above; I have spent that time in minutes in the direct care of this critically ill patient, excluding procedure time. Critical Care Time: 30 minutes of critical care time was provided and assessment in light of this patient with an acute potentially life-threatening hyperkalemia, as well as providing initial stabilizing treatment to lower potassium. No billable procedures were performed during this encounter. ED Disposition Clinical Impression: Acute hyperkalemia Diabetic foot ulcer associated with type 2 diabetes mellitus Qualifiers: Diabetic foot ulcer location: midfoot Laterality: left Non-pressure ulcer stage : unspecified non-pressure ulcer stage Qualified Code(s): E11.621 - Type 2 diabetes mellitus with foot ulcer; L97.429 - Non-pressure chronic ulcer of left heel and midfoot with unspecified severity Disposition: OP ADMIT IP TO THIS HOSP Is pt being admited?: Yes Does the pt Need Aspirin: No Condition: Stable Instructions: Diabetes Mellitus Type 2 in Adults (ED) Referrals: PRIMARY CARE, [Primary Care Provider] - 3-5 Days Time of Disposition: 14:45
[2017-10-20] MEDS ORDERED: TYLENOL PO PRN (15:56)
[2017-10-20] MEDS ORDERED: SODIUM CHLORIDE FLUSH SYRINGE 10 ML IV PRN (15:56)
[2017-10-20] MEDS ORDERED: ZOFRAN IV PRN ×2 (15:56→18:41)
--- NOTE | 2017-10-20 18:34 | History and Physical Report ---
History of Present Illness Date of examination: 10/20/17 Date of admission: 10/20/17 15:56 Chief complaint: Chief complaint: Left foot ulcer bleeding--1 day duration History of present illness: History of Present Illness: 77-year-old female with history of diabetes hypertension and dyslipidemia comes in for persistent bleeding from chronic ulcer on the left foot after she hit her wheelchair prior to arrival. Patient is a right above-knee amputation from the past. As a large chronic ulcer in the left foot which is being treated by the Wound Care clinic. No fever no chills.] No shortness of breath. Dressing on the wound was done to stop the bleeding. In the emergency room. Past Medical History Hx Hypertension: Yes Hx Heart Attack/AMI: Yes Hx Congestive Heart Failure: Yes Hx Diabetes: Yes Hx Renal Disease: Yes (CHRONIC) Hx Asthma: Yes Additional medical history: Right AKA Surgical History Hx Coronary Stent: Yes Additional Surgical History: R. AKA, arterial graft L leg Social History Smoking Status: Never Smoker Substance Use Type: None Family history - Medications Home Medications: Home Medications Medication Instructions Recorded Confirmed Last Taken Type Ascorbate Calcium [Vitamin C] 500 mg PO QDAY 12/10/13 06/06/15 1 Day Ago History ~09/20/14 Atorvastatin [Lipitor] 40 mg PO QPM 12/10/13 06/06/15 1 Day Ago History ~09/20/14 Gabapentin 300 mg PO HS PRN 12/10/13 06/06/15 1 Day Ago History ~09/20/14 Metoprolol Tartrate 100 mg PO QDAY 12/10/13 06/06/15 1 Day Ago History ~09/20/14 NIFEdipine [Nifedipine ER] 60 mg PO DAILY 12/10/13 06/06/15 1 Day Ago History ~09/20/14 glipiZIDE [Glucotrol] 1 tab PO QAM 05/07/14 06/06/15 1 Day Ago History ~09/20/14 Vitamin D 1 cap PO QWEEK 03/21/15 06/06/15 Unknown History Clopidogrel [Plavix] 1 tab PO DAILY 06/06/15 06/06/15 Unknown History glipiZIDE 0.5 tab PO QPM 06/06/15 06/06/15 Unknown History Review of Systems Stated complaint: LEFT FOOT INJURY Other details as noted in HPI Comment: All other systems reviewed and negative Constitutional: denies: chills, fever Eyes: denies: eye pain, eye discharge, vision change ENT: denies: ear pain, throat pain Respiratory: denies: cough, shortness of breath, wheezing Cardiovascular: denies: chest pain, palpitations Endocrine: no symptoms reported Gastrointestinal: denies: abdominal pain, nausea, diarrhea Musculoskeletal: other (past above knee amputation on the right, chronic ulceration left foot) Skin: other (ulceration as noted above) Neurological: denies: headache, weakness, paresthesias Psychiatric: denies: anxiety, depression Hematological/Lymphatic: easy bleeding (takes Plavix) 14 point review of systems done--- otherwise negative Medications and Allergies Allergies Allergy/AdvReac Type Severity Reaction Status Date / Time Sulfa (Sulfonamide Allergy Hives Verified 10/20/17 13:11 Antibiotics) Home Medications Medication Instructions Recorded Confirmed Last Taken Type Atorvastatin [Lipitor] 40 mg PO QPM 12/10/13 10/20/17 10/19/17 History Gabapentin 300 mg PO BID PRN 12/10/13 10/20/17 10/20/17 History Metoprolol Tartrate 100 mg PO QAM 12/10/13 10/20/17 10/20/17 History NIFEdipine [Nifedipine ER] 60 mg PO DAILY 12/10/13 10/20/17 10/20/17 History glipiZIDE [Glucotrol] 1 tab PO QAM 05/07/14 10/20/17 10/20/17 History Vitamin D 1 cap PO QWEEK 03/21/15 10/20/17 10/17/17 History Clopidogrel [Plavix] 1 tab PO QAM 06/06/15 10/20/17 10/20/17 History glipiZIDE 0.5 tab PO QPM 06/06/15 10/20/17 10/19/17 History Calcitriol [Rocaltrol] 1 mcg PO QDAY 10/20/17 10/20/17 10/20/17 History traMADol [Ultram] 50 mg PO Q12H PRN 10/20/17 10/20/17 Unknown History Active Meds: Active Medications Acetaminophen (Tylenol) 650 mg PO Q4H PRN PRN Reason: Pain MILD(1-3)/Fever >100.5/RUELAS Last Admin: 10/20/17 16:51 Dose: 650 mg Ondansetron HCl (Zofran) 4 mg IV Q8H PRN PRN Reason: Nausea And Vomiting Sodium Chloride (Sodium Chloride Flush Syringe 10 Ml) 10 ml IV BID BRE Sodium Chloride (Sodium Chloride Flush Syringe 10 Ml) 10 ml IV PRN PRN PRN Reason: LINE FLUSH Exam - Constitutional Vitals: Temp Pulse Resp BP Pulse Ox 98.1 F 82 18 134/69 96 10/20/17 17:27 10/20/17 17:27 10/20/17 17:27 10/20/17 17:27 10/20/17 17:27 General appearance: Present: no acute distress, well-nourished - EENT Eyes: Present: PERRL ENT: hearing intact, clear oral mucosa - Neck Neck: Present: supple, normal ROM - Respiratory Respiratory effort: normal Respiratory: bilateral: CTA - Cardiovascular Heart rate: 76 Rhythm: regular Heart Sounds: Present: S1 & S2. Absent: rub, click - Extremities Extremities: no ischemia, pulses intact (left foot ulcer 1 on the lateral aspect and one on the heel 5 cm x 4 cm with 2 mm depth.), pulses symmetrical, No edema, abnormal Extremity abnormal: edema Peripheral Pulses: within normal limits - Abdominal General gastrointestinal: Present: soft, non-tender, non-distended, normal bowel sounds Female genitourinary: Present: normal - Rectal Rectal Exam: deferred - Integumentary Integumentary: Present: clear, warm, dry - Musculoskeletal Musculoskeletal: gait normal, strength equal bilaterally - Psychiatric Psychiatric: appropriate mood/affect, intact judgment & insight - Neurologic Neurologic: CNII-XII intact, moves all extremities - Allied Health Allied health notes reviewed: nursing, case management Results - Labs CBC & Chem 7: 10/20/17 14:27 10/20/17 14:27 Labs: Laboratory Last Values WBC 9.3 K/mm3 (4.5-11.0) 10/20/17 14:27 RBC 3.42 M/mm3 (3.65-5.03) L 10/20/17 14:27 Hgb 7.1 gm/dl (10.1-14.3) L 10/20/17 14:27 Hct 23.9 % (30.3-42.9) L 10/20/17 14:27 MCV 70 fl (79-97) L 10/20/17 14:27 MCH 21 pg (28-32) L 10/20/17 14:27 MCHC 30 % (30-34) 10/20/17 14:27 RDW 15.3 % (13.2-15.2) H 10/20/17 14:27 Plt Count 344 K/mm3 (140-440) 10/20/17 14:27 Lymph % (Auto) 13.2 % (13.4-35.0) L 10/20/17 14:27 Hopkins % (Auto) 7.2 % (0.0-7.3) 10/20/17 14:27 Eos % (Auto) 0.9 % (0.0-4.3) 10/20/17 14:27 Baso % (Auto) 0.4 % (0.0-1.8) 10/20/17 14:27 Lymph # 1.2 K/mm3 (1.2-5.4) 10/20/17 14: Hopkins # 0.7 K/mm3 (0.0-0.8) 10/20/17 14:27 Eos # 0.1 K/mm3 (0.0-0.4) 10/20/17 14:27 Baso # 0.0 K/mm3 (0.0-0.1) 10/20/17 14:27 Seg Neutrophils % 78.3 % (40.0-70.0) H 10/20/17 14:27 Seg Neutrophils # 7.3 K/mm3 (1.8-7.7) 10/20/17 14:27 Sodium 131 mmol/L (137-145) L 10/20/17 14:27 Potassium 6.5 mmol/L (3.6-5.0) H* 10/20/17 14:27 Chloride 94.6 mmol/L (98-107) L 10/20/17 14:27 Carbon Dioxide 22 mmol/L (22-30) 10/20/17 14:27 Anion Gap 21 mmol/L 10/20/17 14:27 BUN 31 mg/dL (7-17) H 10/20/17 14:27 Creatinine 2.9 mg/dL (0.7-1.2) H 10/20/17 14:27 Estimated GFR 19 ml/min 10/20/17 14:27 BUN/Creatinine Ratio 11 % 06/10/18 14:27 Glucose 170 mg/dL (65-100) H 10/20/17 14:27 Calcium 8.7 mg/dL (8.4-10.2) 10/20/17 14:27 - Imaging and Cardiology EKG: report reviewed Assessment and Plan Advance Directives: Yes (full code) VTE prophylaxis?: Chemical Plan of care discussed with patient/family: Yes - Patient Problems (1) Acute hyperkalemia Current Visit: Yes Status: Acute Plan to address problem: Patient given Kayexalate and calcium gluconate in the emergency room recheck the potassium level (2) Diabetic foot ulcer associated with type 2 diabetes mellitus Current Visit: Yes Status: Chronic Qualifiers: Diabetic foot ulcer location: midfoot Laterality: left Non-pressure ulcer stage: unspecified non-pressure ulcer stage Qualified Code(s): E11.621 - Type 2 diabetes mellitus with foot ulcer; L97.429 - Non-pressure chronic ulcer of left heel and midfoot with unspecified severity Plan to address problem: Wound care Consult requested (3) Chronic kidney disease, stage IV (severe) Current Visit: No Status: Chronic Plan to address problem: Nephrology consulted (4) Hypertension Current Visit: Yes Status: Chronic Qualifiers: Hypertension type: essential hypertension Qualified Code(s): I10 - Essential (primary) hypertension Plan to address problem: Continue antihypertensives (5) Peripheral neuropathy Current Visit: Yes Status: Chronic Qualifiers: Peripheral neuropathy type: polyneuropathy, unspecified Qualified Code(s): G62.9 - Polyneuropathy, unspecified Plan to address problem: Continue gabapentin (6) Type 2 diabetes mellitus Current Visit: Yes Status: Chronic Qualifiers: Diabetes mellitus mcc insulin use: without intermediate card tender use Chronic kidney disease stage: stage 4 (severe) Plan to address problem: Continue oral hypoglycemics and coverage Check hemoglobin A1c (7) Vitamin D deficiency Current Visit: Yes Status: Chronic Plan to address problem: continue vitamin D (8) Anemia Current Visit: Yes Status: Chronic Qualifiers: Anemia type: due to chronic kidney disease Chronic kidney disease stage: stage 4 (severe) Qualified Code(s): N18.4 - Chronic kidney disease, stage 4 ( severe); D63.1 - Anemia in chronic kidney disease Plan to address problem: Transfuse 1 unit if necessary (9) DVT prophylaxis Current Visit: Yes Status: Acute Plan to address problem: Patient on Plavix
[2017-10-20] MEDS ORDERED: PEPCID IV SCH (22:00)
[2017-10-20] MEDS: GLUCOTROL PO SCH (22:51)
[2017-10-20] MEDS: COLACE PO SCH (22:53)
[2017-10-20] MEDS: SODIUM CHLORIDE FLUSH SYRINGE 10 ML IV SCH ×2 (22:53→22:56)
[2017-10-20] MEDS: NEURONTIN PO PRN (22:53)
[2017-10-20] MEDS: ROCALTROL PO SCH (22:54)
[2017-10-20] MEDS: PROCARDIA XL PO SCH (22:54)
[2017-10-20] MEDS: HumaLOG SUB-Q SCH (22:55)
[2017-10-21 05:04] LABS: Basophils % (Auto) 0.2 % (0.0-1.8); Eosinophils # (Auto) 0.1 K/mm3 (0.0-0.4); Eosinophils % (Auto) 0.6 % (0.0-4.3); Hematocrit 20.8 % (30.3-42.9); Hemoglobin 6.1 gm/dl (10.1-14.3); Lymphocytes # (Auto) 1.4 K/mm3 (1.2-5.4); Lymphocytes % (Auto) 18.1 % (13.4-35.0); Mean Corpuscular HGB Conc 29 % (30-34); Monocytes # (Auto) 0.7 K/mm3 (0.0-0.8); Monocytes % (Auto) 9.2 % (0.0-7.3); Platelet Count 291 K/mm3 (140-440); Red Blood Count 2.98 M/mm3 (3.65-5.03); Red Cell Distribution Width 15.2 % (13.2-15.2)
[2017-10-21 05:05] LABS: Mean Corpuscular Hemoglobin 21 pg (28-32); Mean Corpuscular Volume 70 fl (79-97)
[2017-10-21 05:32] LABS: Albumin 2.9 g/dL (3.9-5); BUN/Creatinine Ratio 10; Blood Urea Nitrogen 33 mg/dL (7-17); Calcium 8.2 mg/dL (8.4-10.2); Hemolysis Index 4
[2017-10-21 05:34] LABS: Alanine Aminotransferase < 5 units/L (7-56)
[2017-10-21] MEDS: PERCOCET 5/325 PO PRN (06:36)
--- NOTE | 2017-10-21 08:11 | Progress Note ---
Assessment and Plan Assessment and plan: Patient is a 77 yo woman with history of hypertension, NIDDM, PAD s/p right AKA , chf, ami, chf, cad with stents, CKD 3, dyslipidemia and chronic left foot ulcer who pw trauma to the left foot causing bleeding but admitted due to severe hyperkalemia, and ARF -Acute hyperkalemia: Patient given Kayexalate and calcium gluconate in the emergency room, recheck the potassium level -Diabetic foot ulcer associated with type 2 diabetes mellitus: Wound care Consult requested -JAYME/ Chronic kidney disease, stage IV (severe), Cr has not been over 2.9 in our EMR, range varies, lowest 1.6 as high as 2.9: Nephrology consulted, repeat bmp in am -Hypertension: Continue antihypertensives -Peripheral neuropathy: Continue gabapentin -Type 2 diabetes mellitus: Continue oral hypoglycemics and coverage, Check hemoglobin A1c -Vitamin D deficiency: continue vitamin D -Anemia, acute on chronic anemia, now due to acute blood loss from wound: transfuse prbc, hgb 6.1, repeat cbc in am -DVT prophylaxis: Patient on Plavix for pad -Moderate to severe malnutrition, alb 2.9: consult Copier Repair Technician CCT 31 min History Interval history: Patient was seen and examined. Follow-up on current diagnosis of high potassium. Overnight uneventful. Patient denies any chest pain, shortness breath , nausea/vomiting or severe headaches. Imaging, nursing note, chart, labs and old chart reviewed. Discussed with patient. Daughters Felicia and Sravanthi at bedside Hospitalist Physical - Physical exam Narrative exam: GEN: WDWN, NAD, Awake, Alert, Orientated HEENT: NCAT, EOMI, PERRL, OP Clear NECK: supple, no adenopathy, no thyromegaly, no JVD CVS/HEART: RRR, normal S1S2, pulses present bilaterally CHEST/LUNGS: CTA B, Symmetrical chest expansion, good air entry bilaterally GI/Abdomen: soft, NTND, good bowel sounds, no guarding or rebound /Bladder: no suprapubic tenderness, no CVA or paraspinal tenderness EXT/Skin: no c/c/e, no obvious rash MSK: FROM x 3, right aka Neuro: CN 2-12 grossly intact, no new focal deficits Psych: calm - Constitutional Vitals: Temp Pulse Resp BP Pulse Ox 99.5 F 82 20 127/53 95 10/21/17 01:13 10/21/17 01:15 10/21/17 07:36 10/21/17 01:13 10/21/17 01:13 General appearance: Present: no acute distress, well-nourished Results - Labs CBC & Chem 7: 10/21/17 04:35 10/21/17 04:35 Labs: Laboratory Last Values WBC 8.0 K/mm3 (4.5-11.0) 10/21/17 04:35 RBC 2.98 M/mm3 (3.65-5.03) L 10/21/17 04:35 Hgb 6.1 gm/dl (10.1-14.3) L 10/21/17 04:35 Hct 20.8 % (30.3-42.9) L 10/21/17 04:35 MCV 70 fl (79-97) L 10/21/17 04:35 MCH 21 pg (28-32) L 10/21/17 04:35 MCHC 29 % (30-34) L 10/21/17 04:35 RDW 15.2 % (13.2-15.2) 10/21/17 04:35 Plt Count 291 K/mm3 (140-440) 10/21/17 04:35 Lymph % (Auto) 18.1 % (13.4-35.0) 10/21/17 04:35 Stark % (Auto) 9.2 % (0.0-7.3) H 10/21/17 04:35 Eos % (Auto) 0.6 % (0.0-4.3) 10/21/17 04:35 Baso % (Auto) 0.2 % (0.0-1.8) 10/21/17 04:35 Lymph # 1.4 K/mm3 (1.2-5.4) 10/21/17 04:35 Stark # 0.7 K/mm3 (0.0-0.8) 10/21/17 04:35 Eos # 0.1 K/mm3 (0.0-0.4) 10/21/17 04:35 Baso # 0.0 K/mm3 (0.0-0.1) 10/21/17 04:35 Seg Neutrophils % 71.9 % (40.0-70.0) H 10/21/17 04:35 Seg Neutrophils # 5.7 K/mm3 (1.8-7.7) 10/21/17 04:35 Sodium 140 mmol/L (137-145) D 10/21/17 04:35 Potassium 5.1 mmol/L (3.6-5.0) H D 10/21/17 04:35 Chloride 105.7 mmol/L (98-107) 10/21/17 04:35 Carbon Dioxide 20 mmol/L (22-30) L 10/21/17 04:35 Anion Gap 19 mmol/L 10/21/17 04:35 BUN 33 mg/dL (7-17) H 10/21/17 04:35 Creatinine 3.2 mg/dL (0.7-1.2) H 10/21/17 04:35 Estimated GFR 17 ml/min 10/21/17 04:35 BUN/Creatinine Ratio 10 % 10/21/17 04:35 Glucose 148 mg/dL (65-100) H 10/21/17 04:35 POC Glucose 218 (70-105) H 10/20/17 21:40 Hemoglobin A1c 5.8 % (4-6) 10/20/17 14:27 Calcium 8.2 mg/dL (8.4-10.2) L 10/21/17 04:35 Total Bilirubin 0.20 mg/dL (0.1-1.2) 10/21/17 04:35 AST 9 units/L (5-40) 10/21/17 04:35 ALT < 5 units/L (7-56) L 10/21/17 04:35 Alkaline Phosphatase 62 units/L (35-129) 10/21/17 04:35 Total Protein 6.7 g/dL (6.3-8.2) 10/21/17 04:35 Albumin 2.9 g/dL (3.9-5) L 10/21/17 04:35 Albumin/Globulin Ratio 0.8 % 10/21/17 04:35
[2017-10-21] MEDS: HumaLOG SUB-Q SCH ×3 (08:47→17:05)
[2017-10-21] MEDS ORDERED: NACL 0.9% 500 ML 500 ML IV NR ×2 (09:00→10:08)
--- NOTE | 2017-10-21 09:19 | Consultation ---
History of Present Illness - Reason for Consult Consult date: 10/21/17 chronic renal failure, hyperkalemia Requesting physician: CHUCK LOONEY - History of Present Illness 77 yo lady who is known to me with history of diabetes mellitus, hypertension and chronic kidney disease stage IV who also has peripheral vascular disease and has a chronic ulcer left foot for which she is undergoing treatment at the wound care clinic. Patient injured the foot while trying to get into a wheelchair. She developed severe bleeding which persisted despite family's attempt to stop the bleeding and so they brought her to the hospital for further management. Medications and Allergies Allergies Allergy/AdvReac Type Severity Reaction Status Date / Time Sulfa (Sulfonamide Allergy Hives Verified 10/20/17 13:11 Antibiotics) Home Medications Medication Instructions Recorded Confirmed Last Taken Type Atorvastatin [Lipitor] 40 mg PO QPM 12/10/13 10/20/17 10/19/17 History Gabapentin 300 mg PO BID PRN 12/10/13 10/20/17 10/20/17 History Metoprolol Tartrate 100 mg PO QAM 12/10/13 10/20/17 10/20/17 History NIFEdipine [Nifedipine ER] 60 mg PO DAILY 12/10/13 10/20/17 10/20/17 History glipiZIDE [Glucotrol] 1 tab PO QAM 05/07/14 10/20/17 10/20/17 History Vitamin D 1 cap PO QWEEK 03/21/15 10/20/17 10/17/17 History Clopidogrel [Plavix] 1 tab PO QAM 06/06/15 10/20/17 10/20/17 History glipiZIDE 0.5 tab PO QPM 06/06/15 10/20/17 10/19/17 History Calcitriol [Rocaltrol] 1 mcg PO QDAY 10/20/17 10/20/17 10/20/17 History traMADol [Ultram] 50 mg PO Q12H PRN 10/20/17 10/20/17 Unknown History Active Meds: Active Medications Acetaminophen (Tylenol) 650 mg PO Q4H PRN PRN Reason: Pain MILD(1-3)/Fever >100.5/RUELAS Atorvastatin Calcium (Lipitor) 40 mg PO QPM [facility] Calcitriol (Rocaltrol) 1 mcg PO QDAY [facility] Last Admin: 10/20/17 22:54 Dose: Not Given Clopidogrel Bisulfate (Plavix) 75 mg PO QAM [facility] Dextrose (D50w (25gm) Syringe) 50 ml IV PRN PRN PRN Reason: Hypoglycemia Docusate Sodium (Colace) 100 mg PO BID [facility] Last Admin: 10/20/17 22:53 Dose: Not Given Famotidine (Pepcid) 10 mg PO BID [facility] Gabapentin (Neurontin) 300 mg PO BID PRN PRN Reason: leg pain Last Admin: 10/20/17 22:53 Dose: 300 mg Glipizide (Glucotrol) 5 mg PO QAM [facility] Glipizide (Glucotrol) 2.5 mg PO QHS [facility] Last Admin: 10/20/17 22:51 Dose: 2.5 mg Sodium Chloride (Nacl 0.9% 500 Ml) 500 mls @ 0 mls/hr IV ONCE NR Stop: 10/21/17 12:00 Insulin Human Lispro (Humalog) 0 unit SUB-Q ACHS [facility]; Protocol Last Admin: 10/21/17 08:47 Dose: Not Given Metoprolol Tartrate (Lopressor) 100 mg PO QAM [facility] Morphine Sulfate (Morphine) 2 mg IV Q4H PRN PRN Reason: Pain, Moderate (4-6) Nifedipine (Procardia Xl) 60 mg PO DAILY [facility] Last Admin: 10/20/17 22:54 Dose: Not Given Ondansetron HCl (Zofran) 4 mg IV Q8H PRN PRN Reason: Nausea And Vomiting Last Admin: 10/20/17 20:02 Dose: 4 mg Ondansetron HCl (Zofran) 4 mg IV Q8H PRN PRN Reason: Nausea And Vomiting Oxycodone/Acetaminophen (Percocet 5/325) 1 tab PO Q6H PRN PRN Reason: Pain, Moderate (4-6) Last Admin: 10/21/17 06:36 Dose: 1 tab Sodium Chloride (Sodium Chloride Flush Syringe 10 Ml) 10 ml IV BID [facility] Last Admin: 10/20/17 22:53 Dose: 10 ml Sodium Chloride (Sodium Chloride Flush Syringe 10 Ml) 10 ml IV PRN PRN PRN Reason: LINE FLUSH Sodium Chloride (Sodium Chloride Flush Syringe 10 Ml) 10 ml IV PRN PRN PRN Reason: LINE FLUSH Sodium Chloride (Sodium Chloride Flush Syringe 10 Ml) 10 ml IV BID [facility] Last Admin: 10/20/17 22:56 Dose: 10 ml Tramadol HCl (Ultram) 50 mg PO Q12H PRN PRN Reason: Pain Review of Systems All systems: negative (Constitutional: no fever or chills. Appetite is diminished but no weight loss. HEENT: No sore throat or sinus drainage no hearing or vision impairment . Cardiovascular: No chest pain, shortness of breath, palpitations, lower extremity swelling or dizziness. Respiratory: No cough, sputum, shortness of breath, hemoptysis or wheezing. Gastrointestinal: No nausea, vomiting, diarrhea, abdominal pain, hematemesis or melena. Genitourinary: No frequency urgency dysuria or hematuria. hematologic: No abnormal bleeding or bruising. Integumentary: no pruritus or rash. Neurological : No headache admits to right-sided weakness and numbness,, no syncope or seizures. Musculoskeletal pain in the left leg,: Has pain in the left leg Psychiatry: Admits to both anxiety and depression) Exam - Vital Signs Vital signs: Vital Signs Temp Pulse Resp BP Pulse Ox 98.6 F 90 18 103/55 97 10/20/17 13:12 10/20/17 13:12 10/20/17 13:12 10/20/17 13:12 10/20/17 13:12 - Physical Exam Narrative exam: Elderly -[place] female lying in bed in no acute distress HEENT: NCAT, pink oral mucous membrane Neck: Supple, no venous distention CVS: S1S2 RRR with no murmur, rub or gallop Chest: Clear to auscultation Abdomen: Protuberant, soft, nontender, no organomegaly, bowel sounds are present Extremities: No edema, dressing left foot, right above-knee amputation Skin warm and dry, no rash Neuro: Awake, alert no focal deficits Results - Lab Results 10/21/17 04:35 10/21/17 04:35 Most recent lab results Calcium 8.2 mg/dL (8.4-10.2) L 10/21/17 04:35 Assessment and Plan - Patient Problems (1) Hyperkalemia Current Visit: Yes Status: Acute Plan to address problem: Hyperkalemia treated medically. Potassium has improved. Agree with low potassium diet. We will arrange for patient to have Mamadou as an outpatient. I'm concerned about recurrent hyperkalemia (2) Bleeding ulcer Current Visit: Yes Status: Acute Plan to address problem: Being managed by primary attending. If bleeding recurs, may need to call vascular surgery to evaluate patient (3) Acute post-hemorrhagic anemia Current Visit: Yes Status: Acute Plan to address problem: Patient to receive 2 units of packed red blood cells today per Primary attending. Follow-up hemoglobin posttransfusion (4) Type 2 diabetes mellitus with diabetic nephropathy Current Visit: Yes Status: Acute Plan to address problem: Blood sugar management by primary attending (5) Hypertensive chronic kidney disease with stage 1 through stage 4 chronic kidney disease, or unspecified chronic kidney disease Current Visit: Yes Status: Acute Plan to address problem: Follow blood pressure on current medications (6) Atherosclerosis of [place] arteries of the extremities with ulceration Current Visit: No Status: Acute Plan to address problem: Continue with wound care and possibly vascular surgery input (7) Diabetic ulcer of left foot associated with type 2 diabetes mellitus Status: Acute Plan to address problem: Continue wound care. (8) Anemia in chronic kidney disease Current Visit: No Status: Chronic Plan to address problem: Give Erythropoetin on dialysis. (9) Chronic kidney disease, stage IV (severe) Current Visit: No Status: Chronic Plan to address problem: Continue Measures to slow progression of kidney disease.
[2017-10-21] MEDS: GLUCOTROL PO SCH (09:52)
[2017-10-21] MEDS: COLACE PO SCH (09:53)
[2017-10-21] MEDS: PLAVIX PO SCH (09:53)
[2017-10-21] MEDS: ROCALTROL PO SCH (09:53)
[2017-10-21] MEDS: PEPCID PO SCH (09:53)
[2017-10-21] MEDS: PROCARDIA XL PO SCH (09:54)
[2017-10-21] MEDS: SODIUM CHLORIDE FLUSH SYRINGE 10 ML IV SCH (09:54)
[2017-10-21] MEDS: LOPRESSOR PO SCH (09:54)
[2017-10-21] MEDS ORDERED: NACL 0.9% 500 ML 500 ML IV ONE (11:00)
[2017-10-21] MEDS: TYLENOL PO PRN (13:37)
[2017-10-21] MEDS: ULTRAM PO PRN (14:14)
[2017-10-21] MEDS: DAKIN'S FULL STRENGTH TP SCH (17:06)
[2017-10-21] MEDS ORDERED: GLIPIZIDE PO SCH (18:00)
[2017-10-21] MEDS: SODIUM CHLORIDE FLUSH SYRINGE 10 ML IV PRN (18:36)
[2017-10-22] MEDS: HumaLOG SUB-Q SCH ×5 (00:14→22:47)
[2017-10-22] MEDS: PEPCID PO SCH ×3 (00:15→21:12)
[2017-10-22] MEDS: COLACE PO SCH ×3 (00:16→21:11)
[2017-10-22] MEDS: GLUCOTROL PO SCH ×3 (00:16→21:11)
[2017-10-22] MEDS: SODIUM CHLORIDE FLUSH SYRINGE 10 ML IV SCH ×3 (00:17→16:58)
[2017-10-22] MEDS: DAKIN'S FULL STRENGTH TP SCH ×2 (03:06→17:01)
[2017-10-22 07:02] LABS: Calcium 8.6 mg/dL (8.4-10.2)
[2017-10-22 07:09] LABS: Hematocrit 24.4 % (30.3-42.9); Hemoglobin 7.6 gm/dl (10.1-14.3); Mean Corpuscular HGB Conc 31 % (30-34); Mean Corpuscular Volume 73 fl (79-97); Red Blood Count 3.36 M/mm3 (3.65-5.03); Red Cell Distribution Width 17.2 % (13.2-15.2)
[2017-10-22 07:10] LABS: Mean Corpuscular Hemoglobin 23 pg (28-32); Platelet Count 192 K/mm3 (140-440)
--- NOTE | 2017-10-22 08:03 | Progress Note ---
Assessment and Plan Assessment and plan: Patient is a 77 yo woman with history of hypertension, NIDDM, PAD s/p right AKA , chf, ami, chf, cad with stents, CKD 3, dyslipidemia and chronic left foot ulcer who pw trauma to the left foot causing bleeding but admitted due to severe hyperkalemia, and ARF -Acute hyperkalemia: Patient given Kayexalate and calcium gluconate in the emergency room, recheck the potassium level -Diabetic foot ulcer associated with type 2 diabetes mellitus: Wound care Consult requested - Chronic kidney disease, stage IV (severe), cr at bl, nephrology input appreciated -Hypertension: Continue antihypertensives -Peripheral neuropathy: Continue gabapentin -Type 2 diabetes mellitus: Continue oral hypoglycemics and coverage, Check hemoglobin A1c -Vitamin D deficiency: continue vitamin D -Anemia, acute on chronic anemia, now due to acute blood loss from wound: transfuse prbc, hgb 6.1, repeat cbc in am -DVT prophylaxis: Patient on Plavix for pad -Moderate to severe malnutrition, alb 2.9: consult Personal Banker Hospitalist Physical - Constitutional Vitals: Temp Pulse Resp BP Pulse Ox 99.7 F H 68 18 115/45 94 10/22/17 07:36 10/22/17 07:36 10/22/17 07:36 10/22/17 07:36 10/22/17 07:36 General appearance: Present: no acute distress, well-nourished Results - Labs CBC & Chem 7: 10/22/17 06:16 10/22/17 06:16 Labs: Laboratory Last Values WBC 10.2 K/mm3 (4.5-11.0) 10/22/17 06:16 RBC 3.36 M/mm3 (3.65-5.03) L 10/22/17 06:16 Hgb 7.6 gm/dl (10.1-14.3) L 10/22/17 06:16 Hct 24.4 % (30.3-42.9) L 10/22/17 06:16 MCV 73 fl (79-97) L 10/22/17 06:16 MCH 23 pg (28-32) L 10/22/17 06:16 MCHC 31 % (30-34) 10/22/17 06:16 RDW 17.2 % (13.2-15.2) H 10/22/17 06:16 Plt Count 192 K/mm3 (140-440) 10/22/17 06:16 Lymph % (Auto) 18.1 % (13.4-35.0) 10/21/17 04:35 [place] % (Auto) 9.2 % (0.0-7.3) H 10/21/17 04:35 Eos % (Auto) 0.6 % (0.0-4.3) 10/21/17 04:35 Baso % (Auto) 0.2 % (0.0-1.8) 10/21/17 04:35 Lymph # 1.4 K/mm3 (1.2-5.4) 10/21/17 04:35 [place] # 0.7 K/mm3 (0.0-0.8) 10/21/17 04:35 Eos # 0.1 K/mm3 (0.0-0.4) 10/21/17 04:35 Baso # 0.0 K/mm3 (0.0-0.1) 10/21/17 04:35 Seg Neutrophils % 71.9 % (40.0-70.0) H 10/21/17 04:35 Seg Neutrophils # 5.7 K/mm3 (1.8-7.7) 10/21/17 04:35 Sodium 138 mmol/L (137-145) 10/22/17 06:16 Potassium 5.3 mmol/L (3.6-5.0) H 10/22/17 06:16 Chloride 101.6 mmol/L (98-107) 10/22/17 06:16 Carbon Dioxide 20 mmol/L (22-30) L 10/22/17 06:16 Anion Gap 22 mmol/L 10/22/17 06:16 BUN 27 mg/dL (7-17) H 10/22/17 06:16 Creatinine 2.8 mg/dL (0.7-1.2) H 10/22/17 06:16 Estimated GFR 20 ml/min 10/22/17 06:16 BUN/Creatinine Ratio 10 % 10/22/17 06:16 Glucose 91 mg/dL (65-100) 10/22/17 06:16 POC Glucose 71 (70-105) 10/22/17 07:43 Hemoglobin A1c 5.8 % (4-6) 10/20/17 14:27 Calcium 8.6 mg/dL (8.4-10.2) 10/22/17 06:16 Total Bilirubin 0.20 mg/dL (0.1-1.2) 10/21/17 04:35 AST 9 units/L (5-40) 10/21/17 04:35 ALT < 5 units/L (7-56) L 10/21/17 04:35 Alkaline Phosphatase 62 units/L (35-129) 10/21/17 04:35 Total Protein 6.7 g/dL (6.3-8.2) 10/21/17 04:35 Albumin 2.9 g/dL (3.9-5) L 10/21/17 04:35 Albumin/Globulin Ratio 0.8 % 10/21/17 04:35 Blood Type A POSITIVE 10/21/17 08:35 Antibody Screen Negative 10/21/17 08:35 Crossmatch See Detail 10/21/17 08:35
[2017-10-22] MEDS: PERCOCET 5/325 PO PRN ×2 (08:13→17:54)
--- NOTE | 2017-10-22 08:24 | Progress Note ---
Assessment and Plan - Patient Problems (1) Hyperkalemia Current Visit: Yes Status: Acute Plan to address problem: Hyperkalemia treated medically. Potassium has improved. Continue potassium diet. We'll give a dose of Kayexalate today. We will arrange for patient to have Veltassa as an outpatient. I'm concerned about recurrent hyperkalemia (2) Bleeding ulcer Current Visit: Yes Status: Acute Plan to address problem: Being managed by primary attending. If bleeding recurs, may need to call vascular surgery to evaluate patient (3) Acute post-hemorrhagic anemia Current Visit: Yes Status: Acute Plan to address problem: Hemoglobin improved posttransfusion. Would give another unit if patient was symptomatic (4) Type 2 diabetes mellitus with diabetic nephropathy Current Visit: Yes Status: Acute Plan to address problem: Blood sugar management by primary attending (5) Hypertensive chronic kidney disease with stage 1 through stage 4 chronic kidney disease, or unspecified chronic kidney disease Current Visit: Yes Status: Acute Plan to address problem: Follow blood pressure on current medications (6) Atherosclerosis of [place] arteries of the extremities with ulceration Current Visit: No Status: Acute Plan to address problem: Continue with wound care and possibly vascular surgery input (7) Diabetic ulcer of left foot associated with type 2 diabetes mellitus Status: Acute Plan to address problem: Continue wound care. (8) Anemia in chronic kidney disease Current Visit: No Status: Chronic Plan to address problem: Give Erythropoetin on dialysis. (9) Chronic kidney disease, stage IV (severe) Current Visit: No Status: Chronic Plan to address problem: Continue Measures to slow progression of kidney disease. Subjective Date of service: 10/22/17 Principal diagnosis: chronic kidney disease, hyperkalemia Interval history: Patient seen lying in bed. At the bedside. A "bit loopy" because of the pain medications. She has been having pain in the left foot. Denies chest pain, shortness of breath or dizziness Objective - Exam Narrative Exam: Elderly -[place]incentian female lying in bed in no acute distress HEENT: NCAT, pink oral mucous membrane Neck: Supple, no venous distention CVS: S1S2 RRR with no murmur, rub or gallop Chest: Clear to auscultation Abdomen: Protuberant, soft, nontender, no organomegaly, bowel sounds are present Extremities: No edema, dressing left foot, right above-knee amputation Skin warm and dry, no rash Neuro: Awake, alert no focal deficits - Vital Signs Vital signs: Vital Signs - 12hr 10/21/17 10/22/17 10/22/17 22:00 02:28 07:36 Temperature 99.0 F 99.7 F H Pulse Rate 71 68 Respiratory 20 18 18 Rate Blood Pressure 111/47 115/45 O2 Sat by Pulse 92 94 Oximetry - Lab 10/22/17 06:16 10/22/17 06:16 Most recent lab results Calcium 8.6 mg/dL (8.4-10.2) 10/22/17 06:16
[2017-10-22] MEDS ORDERED: KIONEX PO NR (10:00)
[2017-10-22] MEDS: LOPRESSOR PO SCH (10:00)
[2017-10-22] MEDS: ROCALTROL PO SCH (10:27)
[2017-10-22] MEDS: PLAVIX PO SCH (10:27)
[2017-10-22] MEDS: PROCARDIA XL PO SCH (12:10)
--- NOTE | 2017-10-22 18:26 | Consultation ---
History of Present Illness Consult date: 10/22/17 Chief complaint: bleeding foot wound - History of present illness History of present illness: 77 yo F with hx of CAD, DM who presents to the hospital with c/o bleeding from her left foot wound. The patient states she was pivoting from her wheelchair and bumped her foot and it started bleeding. It was unable to be controlled and her family brought her to the hospital. The patient is primarily nonambulatory and travels via wheelchair. The patient is well known to the wound care clinic and has been followed for over 1 year for nonhealing diabetic foot wounds on the left. She is s/p atherectomy with angioplasty of the left SFA and popliteal artery and angioplasty of the left peroneal artery by Dr. Ventura in October 2016. She has been through HBO and aggressive wound care with multiple providers at the wound care clinic with. Unfortunately, she has not been able to follow up regularly because of family issues and the family states they want to give her rest between debridements because of pain in the foot and so they choose to follow up only monthly instead of weekly. She was seen over 1 month ago in the [facility]. Today the patient c/o left foot pain. She was seen by principal archaeologist who started dressings with dakins solution. She is s/p 1 unit PRBC for anemia and feels better now. No f/c, cp, sob, abd pain, n/v. She states that she wants to save her leg. She has hx of AKA on Right. Past History Past Medical History: diabetes, hypertension, hyperlipidemia, PVD, renal failure , other (nonhealing left lower extremity wounds) Past Surgical History: Other (R AKA, LLE revascularization procedures, multiple debridements L foot wounds) Social history: no significant social history Family history: no significant family history Medications and Allergies Allergies Allergy/AdvReac Type Severity Reaction Status Date / Time Sulfa (Sulfonamide Allergy Hives Verified 10/20/17 13:11 Antibiotics) Home Medications Medication Instructions Recorded Confirmed Last Taken Type Atorvastatin [Lipitor] 40 mg PO QPM 12/10/13 10/20/17 10/19/17 History Gabapentin 300 mg PO BID PRN 12/10/13 10/20/17 10/20/17 History Metoprolol Tartrate 100 mg PO QAM 12/10/13 10/20/17 10/20/17 History NIFEdipine [Nifedipine ER] 60 mg PO DAILY 12/10/13 10/20/17 10/20/17 History glipiZIDE [Glucotrol] 1 tab PO QAM 05/07/14 10/20/17 10/20/17 History Vitamin D 1 cap PO QWEEK 03/21/15 10/20/17 10/17/17 History Clopidogrel [Plavix] 1 tab PO QAM 06/06/15 10/20/17 10/20/17 History glipiZIDE 0.5 tab PO QPM 06/06/15 10/20/17 10/19/17 History Calcitriol [Rocaltrol] 1 mcg PO QDAY 10/20/17 10/20/17 10/20/17 History traMADol [Ultram] 50 mg PO Q12H PRN 10/20/17 10/20/17 Unknown History Active Meds: Active Medications Acetaminophen (Tylenol) 650 mg PO Q4H PRN PRN Reason: Pain MILD(1-3)/Fever >100.5/RUELAS Last Admin: 10/21/17 13:37 Dose: 650 mg Atorvastatin Calcium (Lipitor) 40 mg PO QPM [facility] Last Admin: 10/22/17 17:55 Dose: 40 mg Calcitriol (Rocaltrol) 1 mcg PO QDAY [facility] Last Admin: 10/22/17 10:27 Dose: 1 mcg Dextrose (D50w (25gm) Syringe) 50 ml IV PRN PRN PRN Reason: Hypoglycemia Docusate Sodium (Colace) 100 mg PO BID [facility] Last Admin: 10/22/17 10:27 Dose: 100 mg Famotidine (Pepcid) 10 mg PO BID [facility] Last Admin: 10/22/17 10:27 Dose: 10 mg Gabapentin (Neurontin) 300 mg PO BID PRN PRN Reason: leg pain Last Admin: 10/20/17 22:53 Dose: 300 mg Glipizide (Glucotrol) 5 mg PO QAM [facility] Last Admin: 10/22/17 10:27 Dose: 5 mg Glipizide (Glucotrol) 2.5 mg PO QHS [facility] Last Admin: 10/22/17 00:16 Dose: 2.5 mg Cefazolin Sodium 2 gm/ Sodium (Chloride) 100 mls @ 200 mls/hr IV Q8HR [facility] Insulin Human Lispro (Humalog) 0 unit SUB-Q ACHS [facility]; Protocol Last Admin: 10/22/17 17:00 Dose: Not Given Metoprolol Tartrate (Lopressor) 100 mg PO QAM [facility] Last Admin: 10/22/17 10:00 Dose: Not Given Morphine Sulfate (Morphine) 2 mg IV Q4H PRN PRN Reason: Pain, Moderate (4-6) Nifedipine (Procardia Xl) 60 mg PO DAILY [facility] Last Admin: 10/22/17 12:10 Dose: Not Given Ondansetron HCl (Zofran) 4 mg IV Q8H PRN PRN Reason: Nausea And Vomiting Oxycodone/Acetaminophen (Percocet 5/325) 1 tab PO Q6H PRN PRN Reason: Pain, Moderate (4-6) Last Admin: 10/22/17 17:54 Dose: 1 tab Sodium Chloride (Sodium Chloride Flush Syringe 10 Ml) 10 ml IV PRN PRN PRN Reason: LINE FLUSH Last Admin: 10/21/17 18:36 Dose: 10 ml Sodium Chloride (Sodium Chloride Flush Syringe 10 Ml) 10 ml IV BID [facility] Last Admin: 10/22/17 16:58 Dose: 10 ml Sodium Hypochlorite (Dakin's Full Strength) 1 applic TP Q12H [facility] Last Admin: 10/22/17 17:01 Dose: 1 applicatio Sodium Polystyrene Sulfonate (Kionex) 15 gm PO DAILY [facility] Tramadol HCl (Ultram) 50 mg PO Q12H PRN PRN Reason: Pain Last Admin: 10/21/17 14:14 Dose: 50 mg Review of Systems All systems: negative (10 point ROS performed and negative except for that listed in HPI) Exam Vital Signs Temp Pulse Resp BP Pulse Ox 98.6 F 90 18 103/55 97 10/20/17 13:12 10/20/17 13:12 10/20/17 13:12 10/20/17 13:12 10/20/17 13:12 Narrative exam: Gen: AAOx3. NAD ENT: no scleral icterus or conjunctival pallor CV: S1, S2+ Resp: even and unlabored Ext: LLE warm. Dressing of LLE foot wounds removed. Lateral and medial wound ( please see wound care pictures). Foul smelling with slough and necrotic eschar over portions of the wound. Wound is full thickness with subcutaneous tissue visible. No bone seen. No drainage. No surrounding redness. Chronic skin changes to foot. Cannot palpate DP or PT pulse. No visible bone. Dakins moistened gauze applied to both wound beds, covered with dry ABD pads and wrapped with kerlex, secured with tape. Motor and sensory intact. + TTP around wounds. Results - Labs 10/22/17 06:16 10/22/17 06:16 Abnormal lab results 10/21/17 10/22/17 10/22/17 Range/Units 22:08 06:16 06:16 RBC 3.36 L (3.65-5.03) M/mm3 Hgb 7.6 L (10.1-14.3) gm/dl Hct 24.4 L (30.3-42.9) % MCV 73 L (79-97) fl MCH 23 L (28-32) pg RDW 17.2 H (13.2-15.2) % Potassium 5.3 H (3.6-5.0) mmol/L Carbon Dioxide 20 L (22-30) mmol/L BUN 27 H (7-17) mg/dL Creatinine 2.8 H (0.7-1.2) mg/dL POC Glucose 175 H (70-105) 10/22/17 10/22/17 Range/Units 11:44 16:29 RBC (3.65-5.03) M/mm3 Hgb (10.1-14.3) gm/dl Hct (30.3-42.9) % MCV (79-97) fl MCH (28-32) pg RDW (13.2-15.2) % Potassium (3.6-5.0) mmol/L Carbon Dioxide (22-30) mmol/L BUN (7-17) mg/dL Creatinine (0.7-1.2) mg/dL POC Glucose 123 H 126 H (70-105) Diabetes panel 10/22/17 Range/Units 06:16 Sodium 138 (137-145) mmol/L Potassium 5.3 H (3.6-5.0) mmol/L Chloride 101.6 (98-107) mmol/L Carbon Dioxide 20 L (22-30) mmol/L BUN 27 H (7-17) mg/dL Creatinine 2.8 H (0.7-1.2) mg/dL Glucose 91 (65-100) mg/dL Calcium 8.6 (8.4-10.2) mg/dL Calcium panel 10/22/17 Range/Units 06:16 Calcium 8.6 (8.4-10.2) mg/dL Pituitary panel 10/22/17 Range/Units 06:16 Sodium 138 (137-145) mmol/L Potassium 5.3 H (3.6-5.0) mmol/L Chloride 101.6 (98-107) mmol/L Carbon Dioxide 20 L (22-30) mmol/L BUN 27 H (7-17) mg/dL Creatinine 2.8 H (0.7-1.2) mg/dL Glucose 91 (65-100) mg/dL Calcium 8.6 (8.4-10.2) mg/dL Adrenal panel 10/22/17 Range/Units 06:16 Sodium 138 (137-145) mmol/L Potassium 5.3 H (3.6-5.0) mmol/L Chloride 101.6 (98-107) mmol/L Carbon Dioxide 20 L (22-30) mmol/L BUN 27 H (7-17) mg/dL Creatinine 2.8 H (0.7-1.2) mg/dL Glucose 91 (65-100) mg/dL Calcium 8.6 (8.4-10.2) mg/dL Assessment and Plan 77 yo F with infected nonhealing diabetic L foot wounds Plan: 1. Patient will need debridement of L foot wounds in OR. She cannot tolerate bedside debridement and is at increased risk of bleeding because she is on plavix. Last dose was this am. 2. Hold Plavix 3. Pt has not had recent vascular studies. Will need arterial doppler of B/L LE 4. vascular surgery consult ordered, known to [facility] vascular group 5. start abx - ancef IV 6. prn pain control 7. continue daily dressing changes by RN with abebe 8. strict glucose control 9. Please request cardiology consult for preop risk assessment 10. Will schedule the patient for surgery early next week, once plavix has been held x 5 days I discussed with the patient and her daughters the importance of coming to the wound care clinic at least once per week to continuously assess her wounds and ensure healing. The patient understands that if she remains noncompliant with wound care, her wounds may continue to get worse and eventually lead to amputation. She understands the seriousness of this. Thank you for this consultation, please call with questions or concerns.
[2017-10-22] MEDS: ceFAZolin 1 GM in NACL 0.9% 20 ML IV SCH (21:10)
[2017-10-22] MEDS: MORPHINE IV PRN (21:10)
[2017-10-22] MEDS ORDERED: ceFAZolin 2 GM in NACL 0.9% 100 ML IV SCH (22:00)
[2017-10-23 07:03] LABS: Hematocrit 23.4 % (30.3-42.9); Hemoglobin 7.2 gm/dl (10.1-14.3); Mean Corpuscular HGB Conc 31 % (30-34); Mean Corpuscular Volume 73 fl (79-97); Platelet Count 305 K/mm3 (140-440); Red Blood Count 3.23 M/mm3 (3.65-5.03); Red Cell Distribution Width 17.3 % (13.2-15.2)
[2017-10-23 07:04] LABS: Mean Corpuscular Hemoglobin 22 pg (28-32)
[2017-10-23 07:18] LABS: Calcium 8.5 mg/dL (8.4-10.2)
[2017-10-23] MEDS: DAKIN'S FULL STRENGTH TP SCH ×2 (07:36→16:52)
[2017-10-23] MEDS: MORPHINE IV PRN ×2 (08:15→21:02)
[2017-10-23] MEDS: SODIUM CHLORIDE FLUSH SYRINGE 10 ML IV SCH ×4 (08:15→23:11)
[2017-10-23] MEDS: ceFAZolin 1 GM in NACL 0.9% 20 ML IV SCH ×2 (08:16→23:11)
[2017-10-23] MEDS: HumaLOG SUB-Q SCH ×3 (08:20→16:53)
--- NOTE | 2017-10-23 09:23 | Consultation ---
History of Present Illness - Reason for Consult Consult date: 10/23/17 Non healing leeft foot wounds - History of Present Illness Patient with a history of significant peripheral vascular disease status post right AKA and nonhealing wounds to the left foot. Her most recent revascularization procedure was then October 2016. Vascular ultrasound performed today demonstrates restenosis involving the mid and distal SFA and monophasic flow distally. Past History Past Medical History: diabetes, hypertension, hyperlipidemia, PVD, renal failure , other (nonhealing left lower extremity wounds) Past Surgical History: Other (R AKA, LLE revascularization procedures, multiple debridements L foot wounds) Social history: no significant social history Family history: no significant family history Medications and Allergies Allergies Allergy/AdvReac Type Severity Reaction Status Date / Time Sulfa (Sulfonamide Allergy Hives Verified 10/20/17 13:11 Antibiotics) Home Medications Medication Instructions Recorded Confirmed Last Taken Type Atorvastatin [Lipitor] 40 mg PO QPM 12/10/13 10/20/17 10/19/17 History Gabapentin 300 mg PO BID PRN 12/10/13 10/20/17 10/20/17 History Metoprolol Tartrate 100 mg PO QAM 12/10/13 10/20/17 10/20/17 History NIFEdipine [Nifedipine ER] 60 mg PO DAILY 12/10/13 10/20/17 10/20/17 History glipiZIDE [Glucotrol] 1 tab PO QAM 05/07/14 10/20/17 10/20/17 History Vitamin D 1 cap PO QWEEK 03/21/15 10/20/17 10/17/17 History Clopidogrel [Plavix] 1 tab PO QAM 06/06/15 10/20/17 10/20/17 History glipiZIDE 0.5 tab PO QPM 06/06/15 10/20/17 10/19/17 History Calcitriol [Rocaltrol] 1 mcg PO QDAY 10/20/17 10/20/17 10/20/17 History traMADol [Ultram] 50 mg PO Q12H PRN 10/20/17 10/20/17 Unknown History Active Meds: Active Medications Acetaminophen (Tylenol) 650 mg PO Q4H PRN PRN Reason: Pain MILD(1-3)/Fever >100.5/RUELAS Last Admin: 10/21/17 13:37 Dose: 650 mg Atorvastatin Calcium (Lipitor) 40 mg PO QPM [facility] Last Admin: 10/22/17 17:55 Dose: 40 mg Calcitriol (Rocaltrol) 1 mcg PO QDAY [facility] Last Admin: 10/22/17 10:27 Dose: 1 mcg Dextrose (D50w (25gm) Syringe) 50 ml IV PRN PRN PRN Reason: Hypoglycemia Docusate Sodium (Colace) 100 mg PO BID [facility] Last Admin: 10/22/17 21:11 Dose: 100 mg Famotidine (Pepcid) 10 mg PO BID [facility] Last Admin: 10/22/17 21:12 Dose: 10 mg Gabapentin (Neurontin) 300 mg PO BID PRN PRN Reason: leg pain Last Admin: 10/20/17 22:53 Dose: 300 mg Glipizide (Glucotrol) 5 mg PO QAM [facility] Last Admin: 10/22/17 10:27 Dose: 5 mg Glipizide (Glucotrol) 2.5 mg PO QHS [facility] Last Admin: 10/22/17 21:11 Dose: 2.5 mg Cefazolin Sodium 1 gm/ Sodium (Chloride) 20 mls @ 2 mls/min IV Q12H [facility] Last Admin: 10/23/17 08:16 Dose: 2 mls/min Insulin Human Lispro (Humalog) 0 unit SUB-Q ACHS [facility]; Protocol Last Admin: 10/23/17 08:20 Dose: Not Given Metoprolol Tartrate (Lopressor) 100 mg PO QAM [facility] Last Admin: 10/22/17 10:00 Dose: Not Given Morphine Sulfate (Morphine) 2 mg IV Q4H PRN PRN Reason: Pain, Moderate (4-6) Last Admin: 10/23/17 08:15 Dose: 2 mg Nifedipine (Procardia Xl) 60 mg PO DAILY [facility] Last Admin: 10/22/17 12:10 Dose: Not Given Ondansetron HCl (Zofran) 4 mg IV Q8H PRN PRN Reason: Nausea And Vomiting Oxycodone/Acetaminophen (Percocet 5/325) 1 tab PO Q6H PRN PRN Reason: Pain, Moderate (4-6) Last Admin: 10/22/17 17:54 Dose: 1 tab Sodium Chloride (Sodium Chloride Flush Syringe 10 Ml) 10 ml IV PRN PRN PRN Reason: LINE FLUSH Last Admin: 10/21/17 18:36 Dose: 10 ml Sodium Chloride (Sodium Chloride Flush Syringe 10 Ml) 10 ml IV BID BRE Last Admin: 10/23/17 08:15 Dose: Not Given Sodium Hypochlorite (Dakin's Full Strength) 1 applic TP Q12H BRE Last Admin: 10/23/17 07:36 Dose: Not Given Sodium Polystyrene Sulfonate (Kionex) 15 gm PO DAILY [facility] Tramadol HCl (Ultram) 50 mg PO Q12H PRN PRN Reason: Pain Last Admin: 10/21/17 14:14 Dose: 50 mg Review of Systems All systems: negative Exam - Constitutional Vitals: Temp Pulse Resp BP Pulse Ox 100.2 F H 75 22 139/48 90 10/23/17 07:25 10/23/17 07:25 10/23/17 07:25 10/23/17 07:25 10/23/17 07:25 General appearance: Present: no acute distress - EENT Eyes: Present: PERRL ENT: hearing intact - Neck Neck: Present: supple, normal ROM - Respiratory Respiratory effort: normal - Extremities Extremities: abnormal - Abdominal General gastrointestinal: Present: deferred - Rectal Rectal Exam: deferred - Psychiatric Psychiatric: cooperative Results - Labs CBC & Chem 7: 10/23/17 05:55 10/23/17 05:55 Labs: Abnormal lab results 10/22/17 10/22/17 10/22/17 Range/Units 11:44 16:29 21:28 RBC (3.65-5.03) M/mm3 Hgb (10.1-14.3) gm/dl Hct (30.3-42.9) % MCV (79-97) fl MCH (28-32) pg RDW (13.2-15.2) % BUN (7-17) mg/dL Creatinine (0.7-1.2) mg/dL Glucose (65-100) mg/dL POC Glucose 123 H 126 H 174 H (70-105) 10/23/17 10/23/17 10/23/17 Range/Units 05:55 05:55 07:24 RBC 3.23 L (3.65-5.03) M/mm3 Hgb 7.2 L (10.1-14.3) gm/dl Hct 23.4 L (30.3-42.9) % MCV 73 L (79-97) fl MCH 22 L (28-32) pg RDW 17.3 H (13.2-15.2) % BUN 27 H (7-17) mg/dL Creatinine 2.6 H (0.7-1.2) mg/dL Glucose 63 L (65-100) mg/dL POC Glucose 63 L (70-105) - Imaging and Cardiology Venous US: image reviewed Assessment and Plan Patient will be scheduled for left lower extremity revascularization procedure tomorrow.
[2017-10-23] MEDS ORDERED: KIONEX PO SCH (10:00)
[2017-10-23] MEDS: ROCALTROL PO SCH (10:33)
[2017-10-23] MEDS: COLACE PO SCH ×2 (10:33→23:04)
[2017-10-23] MEDS: PROCARDIA XL PO SCH (10:34)
[2017-10-23] MEDS: PEPCID PO SCH (10:34)
[2017-10-23] MEDS: LOPRESSOR PO SCH (10:35)
[2017-10-23] MEDS: GLUCOTROL PO SCH (10:35)
[2017-10-23] MEDS: SODIUM CHLORIDE FLUSH SYRINGE 10 ML IV PRN (10:36)
[2017-10-23] MEDS: PERCOCET 5/325 PO PRN (11:14)
--- NOTE | 2017-10-23 14:15 | Vascular Lab Report ---
LOWER EXTREMITY ARTERIAL DUPLEX: REASON FOR EXAM: Arterial ulcer. COMMENTS ON THE RIGHT: Triphasic waveforms are seen proximally. The patient has an [id number] amputation. COMMENTS ON THE LEFT: Triphasic waveforms are seen proximally. Monophasic waveforms are seen distally. Evidence of superficial femoral artery stenosis or occlusion is identified. Scattered plaque is seen throughout. Findings are consistent with abnormal perfusion. Findings are not consistent with the ability to heal distal wounds. IMPRESSION: RIGHT: Patient has an [id number]-[id number] amputation. LEFT:Superficial femoral artery stenosis or occlusion. Inadequate flow noted distally. Recommend further evaluation.
--- NOTE | 2017-10-23 16:28 | Progress Note ---
Hospitalist Physical - Constitutional Vitals: Temp Pulse Resp BP Pulse Ox 100.2 F H 75 22 139/48 90 10/23/17 07:25 10/23/17 10:35 10/23/17 07:25 10/23/17 10:35 10/23/17 07:25 General appearance: Present: no acute distress Results - Labs CBC & Chem 7: 10/23/17 05:55 10/23/17 05:55 Labs: Laboratory Last Values WBC 10.2 K/mm3 (4.5-11.0) 10/23/17 05:55 RBC 3.23 M/mm3 (3.65-5.03) L 10/23/17 05:55 Hgb 7.2 gm/dl (10.1-14.3) L 10/23/17 05:55 Hct 23.4 % (30.3-42.9) L 10/23/17 05:55 MCV 73 fl (79-97) L 10/23/17 05:55 MCH 22 pg (28-32) L 10/23/17 05:55 MCHC 31 % (30-34) 10/23/17 05:55 RDW 17.3 % (13.2-15.2) H 10/23/17 05:55 Plt Count 305 K/mm3 (140-440) 10/23/17 05:55 Lymph % (Auto) 18.1 % (13.4-35.0) 10/21/17 04:35 Norman % (Auto) 9.2 % (0.0-7.3) H 10/21/17 04:35 Eos % (Auto) 0.6 % (0.0-4.3) 10/21/17 04:35 Baso % (Auto) 0.2 % (0.0-1.8) 10/21/17 04:35 Lymph # 1.4 K/mm3 (1.2-5.4) 10/21/17 04:35 Norman # 0.7 K/mm3 (0.0-0.8) 10/21/17 04:35 Eos # 0.1 K/mm3 (0.0-0.4) 10/21/17 04:35 Baso # 0.0 K/mm3 (0.0-0.1) 10/21/17 04:35 Seg Neutrophils % 71.9 % (40.0-70.0) H 10/21/17 04:35 Seg Neutrophils # 5.7 K/mm3 (1.8-7.7) 10/21/17 04:35 Sodium 141 mmol/L (137-145) 10/23/17 05:55 Potassium 4.0 mmol/L (3.6-5.0) D 10/23/17 05:55 Chloride 102.1 mmol/L (98-107) 10/23/17 05:55 Carbon Dioxide 24 mmol/L (22-30) 10/23/17 05:55 Anion Gap 19 mmol/L 10/23/17 05:55 BUN 27 mg/dL (7-17) H 10/23/17 05:55 Creatinine 2.6 mg/dL (0.7-1.2) H 10/23/17 05:55 Estimated GFR 22 ml/min 10/23/17 05:55 BUN/Creatinine Ratio 10 % 10/23/17 05:55 Glucose 63 mg/dL (65-100) L 10/23/17 05:55 POC Glucose 97 (70-105) 10/23/17 11:48 Hemoglobin A1c 5.8 % (4-6) 10/20/17 14:27 Calcium 8.5 mg/dL (8.4-10.2) 10/23/17 05:55 Total Bilirubin 0.20 mg/dL (0.1-1.2) 10/21/17 04:35 AST 9 units/L (5-40) 10/21/17 04:35 ALT < 5 units/L (7-56) L 10/21/17 04:35 Alkaline Phosphatase 62 units/L (35-129) 10/21/17 04:35 Total Protein 6.7 g/dL (6.3-8.2) 10/21/17 04:35 Albumin 2.9 g/dL (3.9-5) L 10/21/17 04:35 Albumin/Globulin Ratio 0.8 % 10/21/17 04:35 Blood Type A POSITIVE 10/21/17 08:35 Antibody Screen Negative 10/21/17 08:35 Crossmatch See Detail 10/21/17 08:35
--- NOTE | 2017-10-23 18:19 | Event Note ---
Date: 10/23/17 Vascular consult appreciated and arterial studies noted. The patient is scheduled for revascularization procedure tomorrow. She is scheduled for debridment of LLE wounds on Saturday10/28/17
--- NOTE | 2017-10-23 19:11 | Progress Note ---
Assessment and Plan - Patient Problems (1) Hyperkalemia Current Visit: Yes Status: Acute Plan to address problem: Hyperkalemia treated medically. Potassium has improved. Continue low potassium diet. Follow-up potassium (2) Bleeding ulcer Current Visit: Yes Status: Acute Plan to address problem: Being managed by primary attending. For arteriogram and possible angioplasty by vascular tomorrow (3) Acute post-hemorrhagic anemia Current Visit: Yes Status: Acute Plan to address problem: Hemoglobin improved posttransfusion. 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 (8) Anemia in chronic kidney disease Current Visit: No Status: Chronic Plan to address problem: Continue Erythropoetin (9) Chronic kidney disease, stage IV (severe) Current Visit: No Status: Chronic Plan to address problem: Continue Measures to slow progression of kidney disease. Subjective Date of service: 10/23/17 Principal diagnosis: chronic kidney disease, hyperkalemia Interval history: Patient seen lying in bed. Pain in the left foot is improved. Denies chest pain, shortness of breath or dizziness Objective - Exam Narrative Exam: Elderly -[place] female lying in bed in no acute distress HEENT: NCAT, pink oral mucous membrane Neck: Supple, no venous distention CVS: S1S2 RRR with no murmur, rub or gallop Chest: Clear to auscultation Abdomen: Protuberant, soft, nontender, no organomegaly, bowel sounds are present Extremities: No edema, dressing left foot, right above-knee amputation Skin warm and dry, no rash Neuro: Awake, alert no focal deficits - Vital Signs Vital signs: Vital Signs - 12hr 10/23/17 10/23/17 10/23/17 07:25 10:00 10:35 Temperature 100.2 F H Pulse Rate 75 75 75 Respiratory 22 Rate Blood Pressure 139/48 Blood Pressure 139/48 [Left] O2 Sat by Pulse 90 Oximetry - Lab 10/23/17 05:55 10/23/17 05:55 Most recent lab results Calcium 8.5 mg/dL (8.4-10.2) 10/23/17 05:55
[2017-10-23] MEDS ORDERED: HALFPRIN EC PO ONE (22:11)
[2017-10-23] MEDS: NEURONTIN PO PRN (23:10)
[2017-10-24] MEDS: TYLENOL PO PRN (02:08)
[2017-10-24] MEDS: DAKIN'S FULL STRENGTH TP SCH ×2 (05:16→17:00)
[2017-10-24] MEDS: SODIUM CHLORIDE FLUSH SYRINGE 10 ML IV SCH ×3 (05:39→23:59)
[2017-10-24] MEDS: GLUCOTROL PO SCH ×3 (05:43→23:58)
[2017-10-24] MEDS: PEPCID PO SCH ×3 (05:43→23:59)
[2017-10-24 06:47] LABS: Hematocrit 22.2 % (30.3-42.9); Hemoglobin 6.8 gm/dl (10.1-14.3); Mean Corpuscular HGB Conc 31 % (30-34); Mean Corpuscular Volume 74 fl (79-97); Platelet Count 289 K/mm3 (140-440); Red Blood Count 3.01 M/mm3 (3.65-5.03)
[2017-10-24 06:48] LABS: Mean Corpuscular Hemoglobin 22 pg (28-32)
[2017-10-24 06:58] LABS: Calcium 8.3 mg/dL (8.4-10.2)
[2017-10-24] MEDS: HumaLOG SUB-Q SCH ×5 (08:18→23:58)
[2017-10-24] MEDS: D50W (25GM) Syringe IV PRN (08:26)
[2017-10-24] MEDS: ceFAZolin 1 GM in NACL 0.9% 20 ML IV SCH ×2 (08:33→20:55)
[2017-10-24] MEDS: LOPRESSOR PO SCH (10:13)
[2017-10-24] MEDS: HALFPRIN EC PO SCH (10:13)
[2017-10-24] MEDS: COLACE PO SCH ×2 (10:13→23:59)
--- NOTE | 2017-10-24 10:23 | Progress Note ---
Assessment and Plan - Patient Problems (1) Hyperkalemia Current Visit: Yes Status: Acute Plan to address problem: Hyperkalemia treated medically. Potassium has improved. Continue low potassium diet. Follow-up potassium (2) Bleeding ulcer Current Visit: Yes Status: Acute Plan to address problem: Being managed by primary attending. For arteriogram and possible angioplasty by vascular today. We will need to limit contrast exposure due to the advanced kidney disease. We'll discuss with vascular team. (3) Acute post-hemorrhagic anemia Current Visit: Yes Status: Acute Plan to address problem: Hemoglobin dropping again. Consider giving another 1-2 units since hemoglobin is less than 7 g/dL (4) Type 2 diabetes mellitus with diabetic nephropathy Current Visit: Yes Status: Acute Plan to address problem: Blood sugar management by primary attending (5) Hypertensive chronic kidney disease with stage 1 through stage 4 chronic kidney disease, or unspecified chronic kidney disease Current Visit: Yes Status: Acute Plan to address problem: Follow blood pressure on current medications (6) Atherosclerosis of minto arteries of the extremities with ulceration Current Visit: No Status: Acute Plan to address problem: Continue with wound care, general surgery and vascular surgery management (7) Diabetic ulcer of left foot associated with type 2 diabetes mellitus Status: Acute Plan to address problem: Continue wound care. (8) Anemia in chronic kidney disease Current Visit: No Status: Chronic Plan to address problem: Continue Erythropoetin (9) Chronic kidney disease, stage IV (severe) Current Visit: No Status: Chronic Plan to address problem: Continue Measures to slow progression of kidney disease. Subjective Date of service: 10/24/17 Principal diagnosis: chronic kidney disease, hyperkalemia Interval history: Patient seen lying in bed. Pain in the left foot is improved. Denies chest pain, shortness of breath or dizziness. Feels tired and sleepy. She is nothing by mouth for vascular procedure Objective - Exam Narrative Exam: Elderly -[place]ian female lying in bed in no acute distress HEENT: NCAT, pink oral mucous membrane Neck: Supple, no venous distention CVS: S1S2 RRR with no murmur, rub or gallop Chest: Clear to auscultation Abdomen: Protuberant, soft, nontender, no organomegaly, bowel sounds are present Extremities: No edema, dressing left foot, right above-knee amputation Skin warm and dry, no rash Neuro: Awake, alert no focal deficits - Vital Signs Vital signs: Vital Signs - 12hr 10/24/17 01:51 Temperature 100.7 F H Pulse Rate 68 Respiratory 18 Rate Blood Pressure 120/43 O2 Sat by Pulse 93 Oximetry - Lab 10/24/17 06:12 10/24/17 06:12 Most recent lab results Calcium 8.3 mg/dL (8.4-10.2) L 10/24/17 06:12
--- NOTE | 2017-10-24 10:25 | Consultation ---
History of Present Illness Consult date: 10/24/17 Consult reason: pre op evaluation History of present illness: This is a 77 year old woman with a history of peripheral vascular disease status post right above the knee amputation. She has a chronic left left lower extremity wounds that is followed by the wound center. Patient was admitted to this hospital 10/20 after a fall from her wheelchair resulting in excessive bleeding from her lower extremity wound and severe anemia. The patient is now planned for left lower extremity revascularization. A cardiac consultation was requested for pre-operative risk assessment. Patient denies chest pain and shortness of breath. Patient denies a prior cardiac history. She has not had any previous cardiac workup. There is no ECG available review. In addition to peripheral vascular disease, she has a history of hypertension, diabetes and chronic kidney disease. Past History Past Medical History: diabetes, hypertension, hyperlipidemia, PVD, renal failure , other (nonhealing left lower extremity wounds) Past Surgical History: Other (R AKA, LLE revascularization procedures, multiple debridements L foot wounds) Medications and Allergies Allergies Allergy/AdvReac Type Severity Reaction Status Date / Time Sulfa (Sulfonamide Allergy Hives Verified 10/20/17 13:11 Antibiotics) Home Medications Medication Instructions Recorded Confirmed Last Taken Type Atorvastatin [Lipitor] 40 mg PO QPM 12/10/13 10/20/17 10/19/17 History Gabapentin 300 mg PO BID PRN 12/10/13 10/20/17 10/20/17 History Metoprolol Tartrate 100 mg PO QAM 12/10/13 10/20/17 10/20/17 History NIFEdipine [Nifedipine ER] 60 mg PO DAILY 12/10/13 10/20/17 10/20/17 History glipiZIDE [Glucotrol] 1 tab PO QAM 05/07/14 10/20/17 10/20/17 History Vitamin D 1 cap PO QWEEK 03/21/15 10/20/17 10/17/17 History Clopidogrel [Plavix] 1 tab PO QAM 06/06/15 10/20/17 10/20/17 History glipiZIDE 0.5 tab PO QPM 06/06/15 10/20/17 10/19/17 History Calcitriol [Rocaltrol] 1 mcg PO QDAY 10/20/17 10/20/17 10/20/17 History traMADol [Ultram] 50 mg PO Q12H PRN 10/20/17 10/20/17 Unknown History Active Meds: Active Medications Acetaminophen (Tylenol) 650 mg PO Q4H PRN PRN Reason: Pain MILD(1-3)/Fever >100.5/RULEAS Last Admin: 10/24/17 02:08 Dose: 650 mg Aspirin (Halfprin Ec) 81 mg PO QDAY [facility] Atorvastatin Calcium (Lipitor) 40 mg PO QPM [facility] Last Admin: 10/23/17 19:13 Dose: 40 mg Calcitriol (Rocaltrol) 1 mcg PO QDAY [facility] Last Admin: 10/23/17 10:33 Dose: 1 mcg Dextrose (D50w (25gm) Syringe) 50 ml IV PRN PRN PRN Reason: Hypoglycemia Last Admin: 10/24/17 08:26 Dose: 50 ml Docusate Sodium (Colace) 100 mg PO BID [facility] Last Admin: 10/23/17 23:04 Dose: 100 mg Famotidine (Pepcid) 10 mg PO BID [facility] Last Admin: 10/24/17 05:43 Dose: 10 mg Gabapentin (Neurontin) 300 mg PO BID PRN PRN Reason: leg pain Last Admin: 10/23/17 23:10 Dose: 300 mg Glipizide (Glucotrol) 5 mg PO QAM [facility] Last Admin: 10/23/17 10:35 Dose: 5 mg Glipizide (Glucotrol) 2.5 mg PO QHS [facility] Last Admin: 10/24/17 05:43 Dose: 2.5 mg Cefazolin Sodium 1 gm/ Sodium (Chloride) 20 mls @ 2 mls/min IV Q12H [facility] Last Admin: 10/24/17 08:33 Dose: 2 mls/min Insulin Human Lispro (Humalog) 0 unit SUB-Q ACHS [facility]; Protocol Last Admin: 10/24/17 08:34 Dose: Not Given Metoprolol Tartrate (Lopressor) 100 mg PO QAM [facility] Last Admin: 10/23/17 10:35 Dose: 100 mg Morphine Sulfate (Morphine) 2 mg IV Q4H PRN PRN Reason: Pain, Moderate (4-6) Last Admin: 10/23/17 21:02 Dose: 2 mg Nifedipine (Procardia Xl) 60 mg PO DAILY [facility] Last Admin: 10/23/17 10:34 Dose: 60 mg Ondansetron HCl (Zofran) 4 mg IV Q8H PRN PRN Reason: Nausea And Vomiting Oxycodone/Acetaminophen (Percocet 5/325) 1 tab PO Q6H PRN PRN Reason: Pain, Moderate (4-6) Last Admin: 10/23/17 11:14 Dose: 1 tab Sodium Chloride (Sodium Chloride Flush Syringe 10 Ml) 10 ml IV PRN PRN PRN Reason: LINE FLUSH Last Admin: 10/23/17 10:36 Dose: 10 ml Sodium Chloride (Sodium Chloride Flush Syringe 10 Ml) 10 ml IV BID BRE Last Admin: 10/24/17 05:39 Dose: 10 ml Sodium Hypochlorite (Dakin's Full Strength) 1 applic TP Q12H BRE Last Admin: 10/24/17 05:16 Dose: 1 applicatio Sodium Polystyrene Sulfonate (Kionex) 15 gm PO DAILY BRE Tramadol HCl (Ultram) 50 mg PO Q12H PRN PRN Reason: Pain Last Admin: 10/21/17 14:14 Dose: 50 mg Physical Examination Vital Signs Temp Pulse Resp BP Pulse Ox 98.6 F 90 18 103/55 97 10/20/17 13:12 10/20/17 13:12 10/20/17 13:12 10/20/17 13:12 10/20/17 13:12 General appearance: no acute distress HEENT: Positive: PERRL Cardiac: Positive: Reg Rate and Rhythm Extremities: Present: Other (right AKA) Results 10/24/17 06:12 10/24/17 06:12 CBC 10/24/17 Range/Units 06:12 WBC 9.1 (4.5-11.0) K/mm3 RBC 3.01 L (3.65-5.03) M/mm3 Hgb 6.8 L (10.1-14.3) gm/dl Hct 22.2 L (30.3-42.9) % Plt Count 289 (140-440) K/mm3 Comprehensive Metabolic Panel 10/24/17 Range/Units 06:12 Sodium 141 (137-145) mmol/L Potassium 3.8 (3.6-5.0) mmol/L Chloride 103.5 (98-107) mmol/L Carbon Dioxide 23 (22-30) mmol/L BUN 25 H (7-17) mg/dL Creatinine 2.4 H (0.7-1.2) mg/dL Glucose 75 (65-100) mg/dL Calcium 8.3 L (8.4-10.2) mg/dL Assessment and Plan PVD Left lower extremity ulcers Hypertension Diabetes Chronic renal failure
[2017-10-24] MEDS ORDERED: NACL 0.9% 500 ML 500 ML IV ONE (10:43)
[2017-10-24] MEDS: ROCALTROL PO SCH (11:14)
[2017-10-24] MEDS: PROCARDIA XL PO SCH (11:14)
[2017-10-24] MEDS ORDERED: HEPARIN/NS 5000 UNIT/500ML(CATH LAB) 1,500 ML IR ONE (11:34)
[2017-10-24] MEDS ORDERED: VERSED ONE (11:34)
[2017-10-24] MEDS ORDERED: XYLOCAINE 2% INFILTRATI ONE (11:35)
[2017-10-24] MEDS ORDERED: NACL 0.9% 500 ML 500 ML ONE (11:35)
[2017-10-24] MEDS: SUBLIMAZE ONE ×3 (11:48→13:26)
[2017-10-24] MEDS: HEPARIN 10,000 UNITS/10 ML ONE ×2 (12:10→12:55)
[2017-10-24] MEDS ORDERED: NACL 0.9% 1000 ML 1,000 ML ONE (12:21)
[2017-10-24] MEDS ORDERED: TRIDIL DRIP 50MG/250ML 50 MG/250 ML BOTTLE ONE (12:21)
[2017-10-24] MEDS ORDERED: CALAN ONE (12:22)
[2017-10-24] MEDS ORDERED: PLAVIX PO ONE (13:51)
[2017-10-24] MEDS ORDERED: PLAVIX ONE (13:52)
[2017-10-24] MEDS ORDERED: ALUM-MAG HYDROX-SIMETH 200-200-20MG/5ML ONE (13:52)
--- NOTE | 2017-10-24 14:42 | Operative Report ---
Operative Report Operative Report: EXAM: 1. Ultrasound-guided access of the right common femoral artery 2. CO2 angiography of the right lower extremity 3. Selection of the abdominal aorta with CO2 angiography 4. Selection of the left external iliac artery with CO2 angiography 5. Selection of the right superficial femoral artery and popliteal artery with angiography of the left lower extremity 6. Selection of the left peroneal artery with angiography of the left lower extremity 7. Atherectomy of the left superficial femoral artery, popliteal artery, tibial peroneal trunk, and proximal peroneal artery with a 1.5 mm solid CSI atherectomy device 8. Angioplasty of the left tibial peroneal trunk and peroneal artery with a 3 mm angioplasty balloon 9. Angioplasty of the left superficial femoral artery, and popliteal artery with a 4 mm angioplasty balloon 10. Angioplasty of the left tibial peroneal trunk and below the knee popliteal artery with a 4 mm x 150 mm drug coated angioplasty balloon 11. Angioplasty of the left superficial femoral artery and popliteal artery with a 5 mm x 150 mm drug coated angioplasty balloon (x 3) 12. Angioplasty of the left proximal peroneal artery and tibioperoneal trunk with a 3.5 mm angioplasty balloon 13. Closure of the right common femoral artery with the 6 [place] proglide DATE: 10/24/17 MEDICAL ACCOUNTING CLERK: REGI RAYO MD INDICATION: Critical limb ischemia of the left lower extremity with nonhealing ulcer with areas of gangrene MEDICATIONS: Please see nursing report for full details. DEVICES: 3 mm x 150 mm angioplasty balloon 3.5 mm x 100 mm angioplasty balloon 4 mm x 220 mm angioplasty balloon 4 mm x 150 mm IN.PACT DCB 5 mm x 150 mm (x3) IN.PACT DCB 1.5 mm solid CSI atherectomy device CONTRAST: 18 mL nonionic contrast PROCEDURE: The risks, benefits, and alternatives were discussed with the patient; written informed consent was obtained. The patient's groins were prepped and draped in sterile fashion. Ultrasound was used to evaluate the right common femoral artery which was patent. Under direct ultrasound guidance, the right common femoral artery was accessed with a 21-gauge micro-puncture needle. 0.018 inch wire was passed through the needle into the aorta. Needle was exchanged for transitional dilator. Wire was exchanged for 0.035 inch wire. Transitional dilator was exchanged for a 5 [place] sheath. CO2 angiography was performed demonstrating 30% narrowing in the mid to upper common femoral artery with patency of the rest of the common femoral artery with occlusion of the right superficial femoral artery and patency of the right profunda femoris artery with long segment diffuse 50% narrowing of the dominant branch of the profunda femoral artery. 40% narrowing noted in the lower right external iliac artery. The puncture was appropriate, above the bifurcation and below the inferior epigastric artery. Omni flush catheter was advanced over the wire and used to select the abdominal aorta. CO2 angiography demonstrated patency of the infrarenal abdominal aorta with 10-20% narrowing of the bilateral common iliac arteries, patency of the internal iliac arteries, patency of the left external iliac artery, and patency of the left external iliac artery stent on CO2 angiography. The left external iliac artery was selected. CO2 angiography demonstrated patency of the left common femoral artery, external iliac artery, and profunda femoral artery. There was severe narrowing with near occlusion of the left proximal superficial femoral artery. The patient was heparinized. Catheter was exchanged for an angled catheter and used to select the left superficial femoral artery. Small amounts of contrast were used to perform digital subtraction angiography as the catheter was then advanced demonstrating severe narrowing with near occlusion throughout the left superficial femoral artery, severe narrowing of the above the knee popliteal artery, patency of the mid popliteal artery, and occlusion of the below the knee popliteal artery. The anterior tibial artery was occluded throughout its course. The posterior tibial artery was occluded throughout its course. Peroneal artery reconstituted a few centimeters after the tibial peroneal trunk occlusion and was the dominant flow into the foot through a network of extensive collaterals. Sheath was exchanged for a 7 [place] 45 cm [place] destination positioned in the left common femoral artery. Navicross catheter and V 18 wire were used to cross the left tibioperoneal occlusion and the wire was passed into the peroneal artery. This was confirmed with digital subtraction angiography. Wire was exchanged for a ViperWire. Atherectomy was performed at medium and high settings in the left superficial femoral artery and popliteal artery, and medium settings in the left tibial peroneal trunk and proximal peroneal artery with a 1.5 mm CSI atherectomy device. 4 mm angioplasty balloon is used to predilate the left popliteal artery and superficial femoral artery throughout its course. 3 mm angioplasty balloon is used to predilate the left peroneal artery and tibioperoneal trunk. 4 mm drug coated balloon was used to perform angioplasty of the left tibioperoneal trunk and below the knee popliteal artery. 5 mm drug coated balloon was used to perform angioplasty from the mid popliteal artery to the common femoral artery. Multiple 5 mm drug coated blends were required. Angled catheter was passed into the superficial femoral artery and digital subtraction angiography was performed demonstrating prompt flow of contrast with only minimal residual narrowing in the proximal left superficial femoral artery measuring 10-20%. The rest of the superficial femoral artery was patent. The popliteal artery was patent. The tibioperoneal trunk was patent except for a focal 50% area of residual narrowing. The proximal most peroneal artery had a focal 50% area of residual narrowing. 3.5 mm angioplasty balloon was used to perform angioplasty of the tibioperoneal trunk and left proximal peroneal artery. Digital subtraction angiography was performed demonstrating no residual narrowing with prompt flow into the vessels of the foot which were supplied by the extensive collaterals from the peroneal artery consistent with a long-standing occlusion of the anterior tibial and posterior tibial arteries. Wires and catheters were removed. Sheath was retracted and left external iliac artery and contrast was injected demonstrating patency of the left external iliac artery, and patency of the left external iliac artery stent. This is performed to confirm no intervention of the left external iliac artery stent was required. Sheath was retracted to the right external iliac artery and the sheath was exchanged for 6 [place] Pro-glide. Pro-glide was deployed achieving near complete hemostasis. Pressure was held for 5 minutes and hemostasis was achieved. Pressure dressing applied. Patient tolerated the procedure well. No immediate postprocedure complication. Of note, the patient's hemoglobin is 6.8, and routine transfusion was requested from the primary team after the procedure. This was not changed by the procedure itself. FINDINGS: Please see procedure note above IMPRESSION: 1. Successful ultrasound-guided access of the right common femoral artery. 2. Successful angiography of the infrarenal aorta and bilateral lower extremities. 3. Successful atherectomy and angioplasty with drug coated balloons of the left superficial femoral artery and popliteal artery. 4. Successful atherectomy and angioplasty of the left tibial peroneal trunk and peroneal artery.
[2017-10-24] MEDS: SODIUM CHLORIDE FLUSH SYRINGE 10 ML IV PRN (20:55)
[2017-10-24 21:43] LABS: Hematocrit 21.4 % (30.3-42.9); Hemoglobin 6.7 gm/dl (10.1-14.3)
--- NOTE | 2017-10-24 23:09 | Event Note ---
Date: 10/24/[address] calov to a visit to patient, since patient ,and her family have insisted that i joind her care team as her private physician. I have reviewed, her records, and spoke to her nurse. REc that she gets some blood, and check iron levels. She has benefitted from procrit, and iron infusion before.will pay visists along with you.
[2017-10-24] MEDS: NEURONTIN PO SCH (23:55)
[2017-10-24] MEDS: PERCOCET 5/325 PO PRN (23:58)
[2017-10-25] MEDS: DAKIN'S FULL STRENGTH TP SCH ×2 (06:31→16:14)
--- NOTE | 2017-10-25 07:36 | Progress Note ---
Assessment and Plan Assessment and plan: Patient is a 77 yo woman with history of hypertension, NIDDM, PAD s/p right AKA , chf, ami, chf, cad with stents, CKD 3, dyslipidemia and chronic left foot ulcer who pw trauma to the left foot causing bleeding but admitted due to severe hyperkalemia, and ARF -Acute hyperkalemia: Patient given Kayexalate x2, now resolved -Diabetic foot ulcer, PAD of LLE associated with type 2 diabetes mellitus: continue wound care, for angioplasty by vascular sx today - Chronic kidney disease, stage IV (severe), cr at bl, nephrology input appreciated -Hypertension: Continue antihypertensives -Peripheral neuropathy: Continue gabapentin -Type 2 diabetes mellitus: Continue oral hypoglycemics and coverage, Check hemoglobin A1c -Vitamin D deficiency: continue vitamin D -Anemia, acute on chronic anemia, now due to acute blood loss from wound: sp 2 unit prbc, hematology consulted also -DVT prophylaxis: Patient on Plavix for pad -Moderate to severe malnutrition, alb 2.9:received Motel [employer] consult Hospitalist Physical - Constitutional Vitals: Temp Pulse Resp BP Pulse Ox 99.6 F 73 17 93/43 95 10/25/17 01:32 10/25/17 01:32 10/25/17 01:32 10/25/17 01:32 10/25/17 01:32 General appearance: Present: no acute distress Results - Labs CBC & Chem 7: 10/24/17 21:07 10/24/17 06:12 Labs: Laboratory Last Values WBC 9.1 K/mm3 (4.5-11.0) 10/24/17 06:12 RBC 3.01 M/mm3 (3.65-5.03) L 10/24/17 06:12 Hgb 6.7 gm/dl (10.1-14.3) L 10/24/17 21:07 Hct 21.4 % (30.3-42.9) L 10/24/17 21:07 MCV 74 fl (79-97) L 10/24/17 06:12 MCH 22 pg (28-32) L 10/24/17 06:12 MCHC 31 % (30-34) 10/24/17 06:12 RDW 18.0 % (13.2-15.2) H 10/24/17 06:12 Plt Count 289 K/mm3 (140-440) 10/24/17 06:12 Lymph % (Auto) 18.1 % (13.4-35.0) 10/21/17 04:35 [place] % (Auto) 9.2 % (0.0-7.3) H 10/21/17 04:35 Eos % (Auto) 0.6 % (0.0-4.3) 10/21/17 04:35 Baso % (Auto) 0.2 % (0.0-1.8) 10/21/17 04:35 Lymph # 1.4 K/mm3 (1.2-5.4) 10/21/17 04:35 [place] # 0.7 K/mm3 (0.0-0.8) 10/21/17 04:35 Eos # 0.1 K/mm3 (0.0-0.4) 10/21/17 04:35 Baso # 0.0 K/mm3 (0.0-0.1) 10/21/17 04:35 Seg Neutrophils % 71.9 % (40.0-70.0) H 10/21/17 04:35 Seg Neutrophils # 5.7 K/mm3 (1.8-7.7) 10/21/17 04:35 Sodium 141 mmol/L (137-145) 10/24/17 06:12 Potassium 3.8 mmol/L (3.6-5.0) 10/24/17 06:12 Chloride 103.5 mmol/L (98-107) 10/24/17 06:12 Carbon Dioxide 23 mmol/L (22-30) 10/24/17 06:12 Anion Gap 18 mmol/L 10/24/17 06:12 BUN 25 mg/dL (7-17) H 10/24/17 06:12 Creatinine 2.4 mg/dL (0.7-1.2) H 10/24/17 06:12 Estimated GFR 24 ml/min 10/24/17 06:12 BUN/Creatinine Ratio 10 % 10/24/17 06:12 Glucose 75 mg/dL (65-100) 10/24/17 06:12 POC Glucose 232 (70-105) H 10/24/17 21:34 Hemoglobin A1c 5.8 % (4-6) 10/20/17 14:27 Calcium 8.3 mg/dL (8.4-10.2) L 10/24/17 06:12 Total Bilirubin 0.20 mg/dL (0.1-1.2) 10/21/17 04:35 AST 9 units/L (5-40) 10/21/17 04:35 ALT < 5 units/L (7-56) L 10/21/17 04:35 Alkaline Phosphatase 62 units/L (35-129) 10/21/17 04:35 Total Protein 6.7 g/dL (6.3-8.2) 10/21/17 04:35 Albumin 2.9 g/dL (3.9-5) L 10/21/17 04:35 Albumin/Globulin Ratio 0.8 % 10/21/17 04:35 Blood Type A POSITIVE 10/24/17 12:26 Antibody Screen Negative 10/24/17 12:26 Crossmatch See Detail 10/24/17 12:26
[2017-10-25] MEDS: HumaLOG SUB-Q SCH ×4 (08:21→23:18)
[2017-10-25] MEDS: ceFAZolin 1 GM in NACL 0.9% 20 ML IV SCH (08:28)
--- NOTE | 2017-10-25 08:34 | Progress Note ---
Assessment and Plan - Patient Problems (1) Hyperkalemia Current Visit: Yes Status: Acute Plan to address problem: Hyperkalemia treated medically. Potassium has improved. Continue low potassium diet. Follow-up potassium -pending this morning (2) Bleeding ulcer Current Visit: Yes Status: Acute Plan to address problem: Being managed by primary attending. For arteriogram and possible angioplasty by vascular today. We will need to limit contrast exposure due to the advanced kidney disease. We'll discuss with vascular team. (3) Acute post-hemorrhagic anemia Current Visit: Yes Status: Acute Plan to address problem: Hemoglobin dropped again. Status post pRBC transfusion. Follow posttransfusion hemoglobin (4) Type 2 diabetes mellitus with diabetic nephropathy Current Visit: Yes Status: Acute Plan to address problem: Blood sugar management by primary attending (5) Hypertensive chronic kidney disease with stage 1 through stage 4 chronic kidney disease, or unspecified chronic kidney disease Current Visit: Yes Status: Acute Plan to address problem: Follow blood pressure on current medications (6) Atherosclerosis of [place] arteries of the extremities with ulceration Current Visit: No Status: Acute Plan to address problem: Continue with wound care, general surgery and vascular surgery management. Status post angioplasty of aorta and left lower extremity vasculature (7) Diabetic ulcer of left foot associated with type 2 diabetes mellitus Status: Acute Plan to address problem: Continue wound care. (8) Anemia in chronic kidney disease Current Visit: No Status: Chronic Plan to address problem: Continue Erythropoetin (9) Chronic kidney disease, stage IV (severe) Current Visit: No Status: Chronic Plan to address problem: Continue Measures to slow progression of kidney disease. Subjective Date of service: 10/25/17 Principal diagnosis: chronic kidney disease, hyperkalemia Interval history: Patient seen lying in bed. Pain in the left foot is improved. She had lower extremity angiogram and angioplasty yesterday. She also received 2 units of blood overnight. Denies chest pain, shortness of breath or dizziness. Objective - Exam Narrative Exam: Elderly -[place] female lying in bed in no acute distress HEENT: NCAT, pink oral mucous membrane Neck: Supple, no venous distention CVS: S1S2 RRR with no murmur, rub or gallop Chest: Clear to auscultation Abdomen: Protuberant, soft, nontender, no organomegaly, bowel sounds are present Extremities: No edema, dressing left foot, right above-knee amputation Skin warm and dry, no rash Neuro: Awake, alert no focal deficits - Vital Signs Vital signs: Vital Signs - 12hr 10/24/17 10/24/17 10/24/17 22:00 23:37 23:58 Temperature 100.5 F H 100.7 F H Pulse Rate 77 77 78 Respiratory 18 18 Rate Blood Pressure 109/44 112/46 O2 Sat by Pulse 95 96 Oximetry 10/25/17 10/25/17 10/25/17 00:22 00:27 00:55 Temperature 99.7 F H Pulse Rate 79 79 79 Respiratory 19 19 20 Rate Blood Pressure 124/59 124/59 117/52 O2 Sat by Pulse 97 98 93 Oximetry 10/25/17 10/25/17 10/25/17 00:57 01:26 01:32 Temperature 99.9 F H 99.9 F H 99.6 F Pulse Rate 72 73 Respiratory 19 17 Rate Blood Pressure 115/55 93/43 O2 Sat by Pulse 93 95 Oximetry 10/25/17 07:30 Temperature 98.7 F Pulse Rate 70 Respiratory 14 Rate Blood Pressure 125/55 O2 Sat by Pulse 89 Oximetry - Lab 10/24/17 21:07 10/24/17 06:12 Most recent lab results Calcium 8.3 mg/dL (8.4-10.2) L 10/24/17 06:12
--- NOTE | 2017-10-25 09:51 | Event Note ---
Date: 10/25/17 Patient seen, resting in bed, no new complaints at this time, eating her breakfast food. No new labs yet, Hgb still showing low.follow you.
[2017-10-25 09:54] LABS: Hematocrit 26.4 % (30.3-42.9); Hemoglobin 8.3 gm/dl (10.1-14.3); Mean Corpuscular HGB Conc 32 % (30-34); Mean Corpuscular Volume 75 fl (79-97); Platelet Count 277 K/mm3 (140-440); Red Blood Count 3.52 M/mm3 (3.65-5.03)
[2017-10-25 09:59] LABS: Mean Corpuscular Hemoglobin 24 pg (28-32); Red Cell Distribution Width 20.5 % (13.2-15.2)
[2017-10-25 10:14] LABS: Calcium 8.6 mg/dL (8.4-10.2)
--- NOTE | 2017-10-25 10:30 | Progress Note ---
Assessment and Plan PVD s/p revascularization Left lower extremity ulcers Anemia s/p transfusion of PRBCs Hypertension Diabetes Chronic renal failure Conservative cardiac management. Subjective Date of service: 10/25/17 Principal diagnosis: chronic kidney disease, hyperkalemia Interval history: Patient is status post left lower extremity revascularization 10/24. She has no cardiac complaints. No events on telemetry monitoring. Objective Vital Signs Temp Pulse Resp BP Pulse Ox 10/25/17 07:30 98.7 F 70 14 125/55 89 10/25/17 01:32 99.6 F 73 17 93/43 95 10/25/17 01:26 99.9 F H 72 19 115/55 93 10/25/17 00:57 99.9 F H 10/25/17 00:55 79 20 117/52 93 10/25/17 00:27 99.7 F H 79 19 124/59 98 10/25/17 00:22 79 19 124/59 97 10/24/17 23:58 100.7 F H 78 18 112/46 96 10/24/17 23:37 100.5 F H 77 18 109/44 95 10/24/17 22:00 77 10/24/17 19:07 99.9 F H 78 16 116/55 89 10/24/17 14:38 99.1 F 74 18 108/55 91 - Physical Examination General: No Apparent Distress HEENT: Positive: PERRL Cardiac: Positive: Reg Rate and Rhythm Lungs: Positive: Decreased Breath Sounds Extremities: Present: Other (right AKA) - Labs and Meds CBC 10/24/17 10/25/17 Range/Units 21:07 09:20 WBC 8.6 (4.5-11.0) K/mm3 RBC 3.52 L (3.65-5.03) M/mm3 Hgb 6.7 L 8.3 L (10.1-14.3) gm/dl Hct 21.4 L 26.4 L (30.3-42.9) % Plt Count 277 (140-440) K/mm3 Comprehensive Metabolic Panel 10/25/17 Range/Units 09:20 Sodium 140 (137-145) mmol/L Potassium 3.9 (3.6-5.0) mmol/L Chloride 104.4 (98-107) mmol/L Carbon Dioxide 22 (22-30) mmol/L BUN 23 H (7-17) mg/dL Creatinine 2.1 H (0.7-1.2) mg/dL Glucose 97 (65-100) mg/dL Calcium 8.6 (8.4-10.2) mg/dL
[2017-10-25] MEDS: GLUCOTROL PO SCH ×2 (10:49→22:39)
[2017-10-25] MEDS: ROCALTROL PO SCH (10:50)
[2017-10-25] MEDS: COLACE PO SCH ×2 (10:50→22:35)
[2017-10-25] MEDS: PLAVIX PO SCH (10:50)
[2017-10-25] MEDS: HALFPRIN EC PO SCH (10:51)
[2017-10-25] MEDS: NEURONTIN PO SCH ×2 (10:51→22:36)
[2017-10-25] MEDS: PEPCID PO SCH ×2 (10:51→22:36)
[2017-10-25] MEDS: LOPRESSOR PO SCH (10:53)
[2017-10-25] MEDS: SODIUM CHLORIDE FLUSH SYRINGE 10 ML IV SCH (10:54)
[2017-10-25] MEDS: PROCARDIA XL PO SCH (10:54)
--- NOTE | 2017-10-25 14:01 | Progress Note ---
Assessment and Plan Pt s/p revascularization to the LLE. Her Foot is now Hot. Renal function without significant deterioration thus far post-operatively. Minimal contrast used. Continue LWC per ET nurse recommendations. Formal debridement per Gen Surgery. - Patient Problems (1) Atherosclerosis of [place] arteries of the extremities with ulceration Current Visit: No Status: Acute (2) Acute on chronic kidney disease, stage 3 Current Visit: No Status: Acute Subjective Date of service: 10/25/17 Principal diagnosis: chronic kidney disease, hyperkalemia Interval history: Pt awake and alert without specific complaint. Objective - Constitutional Vitals: Vital Signs - 12hr 10/25/17 10/25/17 07:30 10:53 Temperature 98.7 F Pulse Rate 70 71 Respiratory 14 Rate Blood Pressure 125/55 119/53 O2 Sat by Pulse 89 Oximetry General appearance: Present: no acute distress - EENT Eyes: EOM intact ENT: hearing intact - Neck Neck: supple - Respiratory Respiratory effort: normal Extremities: no ischemia (LLE hot post-op) Extremity abnormal: ulceration (LLE foot wounds bandaged), other (right groin , incision intact, soft without erythema or drainage) - Neurologic Neurologic: no focal deficits - Psychiatric Psychiatric: appropriate mood/affect, intact judgment & insight, cooperative - Labs CBC & Chem 7: 10/25/17 09:20 10/25/17 09:20 Labs: Abnormal lab results 10/24/17 10/24/17 10/24/17 Range/Units 12:26 21:07 21:34 RBC (3.65-5.03) M/mm3 Hgb 6.7 L (10.1-14.3) gm/dl Hct 21.4 L (30.3-42.9) % MCV (79-97) fl MCH (28-32) pg RDW (13.2-15.2) % BUN (7-17) mg/dL Creatinine (0.7-1.2) mg/dL POC Glucose 232 H (70-105) Crossmatch See Detail 10/25/17 10/25/17 10/25/17 Range/Units 07:31 09:20 09:20 RBC 3.52 L (3.65-5.03) M/mm3 Hgb 8.3 L (10.1-14.3) gm/dl Hct 26.4 L (30.3-42.9) % MCV 75 L (79-97) fl MCH 24 L (28-32) pg RDW 20.5 H (13.2-15.2) % BUN 23 H (7-17) mg/dL Creatinine 2.1 H (0.7-1.2) mg/dL POC Glucose 51 L (70-105) Crossmatch 10/25/17 Range/Units 11:57 RBC (3.65-5.03) M/mm3 Hgb (10.1-14.3) gm/dl Hct (30.3-42.9) % MCV (79-97) fl MCH (28-32) pg RDW (13.2-15.2) % BUN (7-17) mg/dL Creatinine (0.7-1.2) mg/dL POC Glucose 175 H (70-105) Crossmatch
[2017-10-25] MEDS: D5/0.45NS 1,000 ML IV SCH (16:15)
--- NOTE | 2017-10-25 16:54 | Progress Note ---
Assessment and Plan Assessment and plan: --Diabetic foot ulcer; Continue wound care, IV antibiotics, supportive care surgery evaluated, possible debridement --Left lower extremity critical limb ischemia/nonhealing ulcer/area of gangrene s/p revascularization, asked the following --Peripheral vascular disease ;Continue antiplatelets and statins s/p right AKA --Chronic kidney disease stage IV; Nephrology following, avoid nephrotoxins --Anemia of chronic kidney disease; Received 2 units of PRBC, closely monitor H&H --Hypertension; moderate control, continue current antihypertensives When necessary medications --Type 2 diabetes mellitus; Accu-Chek sliding scale coverage and ADA diet and insulin/oral hypoglycemics --DVT prophylaxis; SCDs No pharmacologic anticoagulation in view of anemia requiring blood transfusion --Full CODE STATUS History Interval history: Patient seen and examined medical records reviewed No new events reported by the nursing staff Hospitalist Physical - Constitutional Vitals: Temp Pulse Resp BP Pulse Ox 99.8 F H 67 18 120/45 94 10/25/17 13:47 10/25/17 13:47 10/25/17 13:47 10/25/17 13:47 10/25/17 13:47 General appearance: Present: no acute distress, well-nourished - EENT Eyes: Present: PERRL, EOM intact - Neck Neck: Present: supple, normal ROM - Respiratory Respiratory effort: normal Respiratory: bilateral: diminished, negative: rales, rhonchi, wheezing - Cardiovascular Rhythm: regular Heart Sounds: Present: S1 & S2 - Extremities Extremities: abnormal (status post right AKA) Extremity abnormal: other (ischemic left foot, area of gangrene) - Abdominal General gastrointestinal: soft, non-tender, non-distended, normal bowel sounds - Integumentary Integumentary: Present: clear, warm - Psychiatric Psychiatric: appropriate mood/affect, cooperative - Neurologic Neurologic: moves all extremities Results - Labs CBC & Chem 7: 10/25/17 09:20 10/25/17 09:20 Labs: Laboratory Last Values WBC 8.6 K/mm3 (4.5-11.0) 10/25/17 09:20 RBC 3.52 M/mm3 (3.65-5.03) L 10/25/17 09:20 Hgb 8.3 gm/dl (10.1-14.3) L 10/25/17 09:20 Hct 26.4 % (30.3-42.9) L 10/25/17 09:20 MCV 75 fl (79-97) L 10/25/17 09:20 MCH 24 pg (28-32) L 10/25/17 09:20 MCHC 32 % (30-34) 10/25/17 09:20 RDW 20.5 % (13.2-15.2) H 10/25/17 09:20 Plt Count 277 K/mm3 (140-440) 10/25/17 09:20 Lymph % (Auto) 18.1 % (13.4-35.0) 10/21/17 04:35 [place] % (Auto) 9.2 % (0.0-7.3) H 10/21/17 04:35 Eos % (Auto) 0.6 % (0.0-4.3) 10/21/17 04:35 Baso % (Auto) 0.2 % (0.0-1.8) 10/21/17 04:35 Lymph # 1.4 K/mm3 (1.2-5.4) 10/21/17 04:35 [place] # 0.7 K/mm3 (0.0-0.8) 10/21/17 04:35 Eos # 0.1 K/mm3 (0.0-0.4) 10/21/17 04:35 Baso # 0.0 K/mm3 (0.0-0.1) 10/21/17 04:35 Seg Neutrophils % 71.9 % (40.0-70.0) H 10/21/17 04:35 Seg Neutrophils # 5.7 K/mm3 (1.8-7.7) 10/21/17 04:35 Sodium 140 mmol/L (137-145) 10/25/17 09:20 Potassium 3.9 mmol/L (3.6-5.0) 10/25/17 09:20 Chloride 104.4 mmol/L (98-107) 10/25/17 09:20 Carbon Dioxide 22 mmol/L (22-30) 10/25/17 09:20 Anion Gap 18 mmol/L 10/25/17 09:20 BUN 23 mg/dL (7-17) H 10/25/17 09:20 Creatinine 2.1 mg/dL (0.7-1.2) H 10/25/17 09:20 Estimated GFR 28 ml/min 10/25/17 09:20 BUN/Creatinine Ratio 11 % 10/25/17 09:20 Glucose 97 mg/dL (65-100) 10/25/17 09:20 POC Glucose 91 (70-105) 10/25/17 16:28 Hemoglobin A1c 5.8 % (4-6) 10/20/17 14:27 Calcium 8.6 mg/dL (8.4-10.2) 10/25/17 09:20 Total Bilirubin 0.20 mg/dL (0.1-1.2) 10/21/17 04:35 AST 9 units/L (5-40) 10/21/17 04:35 ALT < 5 units/L (7-56) L 10/21/17 04:35 Alkaline Phosphatase 62 units/L (35-129) 10/21/17 04:35 Total Protein 6.7 g/dL (6.3-8.2) 10/21/17 04:35 Albumin 2.9 g/dL (3.9-5) L 10/21/17 04:35 Albumin/Globulin Ratio 0.8 % 10/21/17 04:35 Blood Type A POSITIVE 10/24/17 12:26 Antibody Screen Negative 10/24/17 12:26 Crossmatch See Detail 10/24/17 12:26
--- NOTE | 2017-10-25 17:23 | Event Note ---
Date: 10/25/17 Patient chart reviewed and patient seen today. She is s/p revascularization of LLE by Vascular. She was subsequently restarted on Plavix post revascularization. I discussed proceeding with debridement of the left foot wound with patient which is scheduled for Saturday10/28/17. All risks, benefits, and alternatives to the procedure were discussed and all questions answered. Consent was obtained. The patient does understand that she is at higher risk of bleeding due to Plavix, however we need to continue the med because of PVD and recent revascularization. She understands. Please make NPO p MN on 10/27/17 and obtain updated type and screen prior to surgery.
[2017-10-26 07:08] LABS: Calcium 8.2 mg/dL (8.4-10.2)
[2017-10-26] MEDS: ceFAZolin 1 GM in NACL 0.9% 20 ML IV SCH ×3 (08:00→19:45)
[2017-10-26] MEDS: HumaLOG SUB-Q SCH ×3 (08:35→16:41)
[2017-10-26] MEDS: SODIUM CHLORIDE FLUSH SYRINGE 10 ML IV PRN (08:51)
--- NOTE | 2017-10-26 09:36 | Progress Note ---
Assessment and Plan 1. Peripheral vascular disease status post right below knee amputation 2. Type 2 diabetes mellitus 3. Essential hypertension 4. Obesity Plan. Cardiac-day stable continue present management Subjective Date of service: 10/26/17 Principal diagnosis: chronic kidney disease, hyperkalemia Interval history: No cardiac symptoms Objective Vital Signs Temp Pulse Pulse Resp BP Pulse Ox 10/26/17 02:37 99.9 F H 76 16 113/49 93 10/25/17 22:00 68 96 10/25/17 19:40 99.4 F 67 18 122/47 92 10/25/17 13:47 99.8 F H 67 18 120/45 94 10/25/17 10:53 71 119/53 10/25/17 10:00 65 70 18 95 - Physical Examination General: No Apparent Distress HEENT: Positive: PERRL Neck: Positive: neck supple. Negative: JVD/HJR Cardiac: Positive: Regular Rate, S1/S2, PMI, Laterally Displaced Lungs: Positive: clear to auscultation, No Wheeze, Rales, Rhonchi Abdomen: Positive: Unremarkable. Negative: Active Bowel Sounds Extremities: Present: Other (right AKA) - Labs and Meds CBC 10/25/17 Range/Units 09:20 WBC 8.6 (4.5-11.0) K/mm3 RBC 3.52 L (3.65-5.03) M/mm3 Hgb 8.3 L (10.1-14.3) gm/dl Hct 26.4 L (30.3-42.9) % Plt Count 277 (140-440) K/mm3 Comprehensive Metabolic Panel 10/25/17 10/26/17 Range/Units 09:20 05:57 Sodium 140 136 L (137-145) mmol/L Potassium 3.9 4.0 (3.6-5.0) mmol/L Chloride 104.4 102.4 (98-107) mmol/L Carbon Dioxide 22 21 L (22-30) mmol/L BUN 23 H 20 H (7-17) mg/dL Creatinine 2.1 H 1.8 H (0.7-1.2) mg/dL Glucose 97 68 (65-100) mg/dL Calcium 8.6 8.2 L (8.4-10.2) mg/dL - Imaging and Cardiology EKG: report reviewed
[2017-10-26] MEDS: ROCALTROL PO SCH (09:54)
[2017-10-26] MEDS: LOPRESSOR PO SCH (09:55)
[2017-10-26] MEDS: PROCARDIA XL PO SCH (09:55)
[2017-10-26] MEDS: COLACE PO SCH ×2 (09:56→21:49)
[2017-10-26] MEDS: PLAVIX PO SCH (09:56)
[2017-10-26] MEDS: PEPCID PO SCH ×2 (09:56→21:49)
[2017-10-26] MEDS: HALFPRIN EC PO SCH (09:56)
[2017-10-26] MEDS: NEURONTIN PO SCH ×2 (09:56→21:49)
[2017-10-26] MEDS: SODIUM CHLORIDE FLUSH SYRINGE 10 ML IV SCH (09:57)
[2017-10-26] MEDS: PERCOCET 5/325 PO PRN ×2 (10:01→22:36)
[2017-10-26] MEDS: GLUCOTROL PO SCH ×2 (10:07→21:50)
--- NOTE | 2017-10-26 10:11 | Progress Note ---
Assessment and Plan - Patient Problems (1) Hyperkalemia Current Visit: Yes Status: Acute Plan to address problem: Hyperkalemia treated medically. Potassium has improved. Continue low potassium diet. (2) Bleeding ulcer Current Visit: Yes Status: Acute Plan to address problem: Being managed by primary attending. For arteriogram and possible angioplasty by vascular today. We will need to limit contrast exposure due to the advanced kidney disease. We'll discuss with vascular team. (3) Acute post-hemorrhagic anemia Current Visit: Yes Status: Acute Plan to address problem: Hemoglobin dropped again. Status post pRBC transfusion. Posttransfusion hemoglobin improved (4) Type 2 diabetes mellitus with diabetic nephropathy Current Visit: Yes Status: Acute Plan to address problem: Blood sugar management by primary attending (5) Hypertensive chronic kidney disease with stage 1 through stage 4 chronic kidney disease, or unspecified chronic kidney disease Current Visit: Yes Status: Acute Plan to address problem: Follow blood pressure on current medications (6) Atherosclerosis of [place] arteries of the extremities with ulceration Current Visit: No Status: Acute Plan to address problem: Continue with wound care, general surgery and vascular surgery management. Status post angioplasty of aorta and left lower extremity vasculature (7) Diabetic ulcer of left foot associated with type 2 diabetes mellitus Status: Acute Plan to address problem: Continue wound care. (8) Anemia in chronic kidney disease Current Visit: No Status: Chronic Plan to address problem: Continue Erythropoetin (9) Chronic kidney disease, stage IV (severe) Current Visit: No Status: Chronic Plan to address problem: Continue Measures to slow progression of kidney disease. Subjective Date of service: 10/26/17 Principal diagnosis: chronic kidney disease, hyperkalemia Interval history: Patient seen lying in bed. Pain in the left foot. Denies chest pain, shortness of breath or dizziness. Objective - Exam Narrative Exam: Elderly -[place] female lying in bed in no acute distress HEENT: NCAT, pink oral mucous membrane Neck: Supple, no venous distention CVS: S1S2 RRR with no murmur, rub or gallop Chest: Clear to auscultation Abdomen: Protuberant, soft, nontender, no organomegaly, bowel sounds are present Extremities: No edema, dressing left foot, right above-knee amputation Skin warm and dry, no rash Neuro: Awake, alert no focal deficits - Vital Signs Vital signs: Vital Signs - 12hr 10/26/17 10/26/17 10/26/17 02:37 07:58 08:04 Temperature 99.9 F H 99.5 F 97.4 F L Pulse Rate 76 73 75 Respiratory 16 18 20 Rate Blood Pressure 113/49 107/45 140/86 O2 Sat by Pulse 93 95 100 Oximetry 10/26/17 10/26/17 09:55 10:01 Temperature Pulse Rate 75 Respiratory 18 Rate Blood Pressure 140/86 O2 Sat by Pulse Oximetry - Lab 10/25/17 09:20 10/26/17 05:57 Most recent lab results Calcium 8.2 mg/dL (8.4-10.2) L 10/26/17 05:57
[2017-10-26] MEDS: D5/0.45NS 1,000 ML IV SCH (12:39)
--- NOTE | 2017-10-26 15:01 | Progress Note ---
Assessment and Plan Assessment and plan: --Diabetic foot ulcer; Continue wound care, IV antibiotics, supportive care surgery evaluated, surgical debridement on 10/28/2017 --Left lower extremity critical limb ischemia/nonhealing ulcer/area of gangrene s/p revascularization, vascular following --Peripheral vascular disease ;Continue antiplatelets and statins s/p right AKA --Chronic kidney disease stage IV; avoid nephrotoxins, as the monitor renal function --Anemia of chronic kidney disease; Received 2 units of PRBC, closely monitor H&H --Hypertension; moderate control, continue current antihypertensives When necessary medications --Type 2 diabetes mellitus; Accu-Chek sliding scale coverage and ADA diet and insulin/oral hypoglycemics --DVT prophylaxis; SCDs No pharmacologic anticoagulation in view of anemia requiring blood transfusion --Full CODE STATUS Plan of care reviewed with the family member at the bedside and her nurse History Interval history: Patient seen and examined medical records reviewed Feels slightly better complains of pain in the limb Chronically ill looking, afebrile Vital signs noted Hospitalist Physical - Constitutional Vitals: Temp Pulse Resp BP Pulse Ox 99.4 F 65 18 105/50 94 10/26/17 14:22 10/26/17 14:22 10/26/17 14:22 10/26/17 14:22 10/26/17 14:22 General appearance: Present: no acute distress, well-nourished - EENT Eyes: Present: PERRL, EOM intact - Neck Neck: Present: supple, normal ROM - Respiratory Respiratory effort: normal Respiratory: bilateral: diminished, negative: rales, rhonchi, wheezing - Cardiovascular Rhythm: regular Heart Sounds: Present: S1 & S2 - Extremities Extremities: abnormal (ischemic left foot) Extremity abnormal: other (status post right AKA) - Abdominal General gastrointestinal: soft, non-tender, non-distended, normal bowel sounds - Integumentary Integumentary: Present: clear, warm - Psychiatric Psychiatric: cooperative, depressed - Neurologic Neurologic: moves all extremities Results - Labs CBC & Chem 7: 10/25/17 09:20 10/26/17 05:57 Labs: Laboratory Last Values WBC 8.6 K/mm3 (4.5-11.0) 10/25/17 09:20 RBC 3.52 M/mm3 (3.65-5.03) L 10/25/17 09:20 Hgb 8.3 gm/dl (10.1-14.3) L 10/25/17 09:20 Hct 26.4 % (30.3-42.9) L 10/25/17 09:20 MCV 75 fl (79-97) L 10/25/17 09:20 MCH 24 pg (28-32) L 10/25/17 09:20 MCHC 32 % (30-34) 10/25/17 09:20 RDW 20.5 % (13.2-15.2) H 10/25/17 09:20 Plt Count 277 K/mm3 (140-440) 10/25/17 09:20 Lymph % (Auto) 18.1 % (13.4-35.0) 10/21/17 04:35 [place] % (Auto) 9.2 % (0.0-7.3) H 10/21/17 04:35 Eos % (Auto) 0.6 % (0.0-4.3) 10/21/17 04:35 Baso % (Auto) 0.2 % (0.0-1.8) 10/21/17 04:35 Lymph # 1.4 K/mm3 (1.2-5.4) 10/21/17 04:35 [place] # 0.7 K/mm3 (0.0-0.8) 10/21/17 04:35 Eos # 0.1 K/mm3 (0.0-0.4) 10/21/17 04:35 Baso # 0.0 K/mm3 (0.0-0.1) 10/21/17 04:35 Seg Neutrophils % 71.9 % (40.0-70.0) H 10/21/17 04:35 Seg Neutrophils # 5.7 K/mm3 (1.8-7.7) 10/21/17 04:35 Sodium 136 mmol/L (137-145) L 10/26/17 05:57 Potassium 4.0 mmol/L (3.6-5.0) 10/26/17 05:57 Chloride 102.4 mmol/L (98-107) 10/26/17 05:57 Carbon Dioxide 21 mmol/L (22-30) L 10/26/17 05:57 Anion Gap 17 mmol/L 10/26/17 05:57 BUN 20 mg/dL (7-17) H 10/26/17 05:57 Creatinine 1.8 mg/dL (0.7-1.2) H 10/26/17 05:57 Estimated GFR 33 ml/min 10/26/17 05:57 BUN/Creatinine Ratio 11 % 10/26/17 05:57 Glucose 68 mg/dL (65-100) 10/26/17 05:57 POC Glucose 151 (70-105) H 10/26/17 11:33 Hemoglobin A1c 5.8 % (4-6) 10/20/17 14:27 Calcium 8.2 mg/dL (8.4-10.2) L 10/26/17 05:57 Total Bilirubin 0.20 mg/dL (0.1-1.2) 10/21/17 04:35 AST 9 units/L (5-40) 10/21/17 04:35 ALT < 5 units/L (7-56) L 10/21/17 04:35 Alkaline Phosphatase 62 units/L (35-129) 10/21/17 04:35 Total Protein 6.7 g/dL (6.3-8.2) 10/21/17 04:35 Albumin 2.9 g/dL (3.9-5) L 10/21/17 04:35 Albumin/Globulin Ratio 0.8 % 10/21/17 04:35 Blood Type A POSITIVE 10/24/17 12:26 Antibody Screen Negative 10/24/17 12:26 Crossmatch See Detail 10/24/17 12:26
[2017-10-26] MEDS: DAKIN'S FULL STRENGTH TP SCH (16:37)
[2017-10-26] MEDS ORDERED: NACL 0.9% 500 ML 500 ML IV SCH (17:42)
[2017-10-27] MEDS: HumaLOG SUB-Q SCH ×4 (00:06→16:57)
[2017-10-27] MEDS: SODIUM CHLORIDE FLUSH SYRINGE 10 ML IV SCH ×4 (03:05→21:29)
[2017-10-27] MEDS: DAKIN'S FULL STRENGTH TP SCH ×3 (03:06→15:49)
[2017-10-27 05:36] LABS: Calcium 8.6 mg/dL (8.4-10.2)
--- NOTE | 2017-10-27 07:01 | Progress Note ---
Assessment and Plan Assessment and plan: --Diabetic foot ulcer; Continue wound care, IV antibiotics, supportive care Schedule follow-up surgical debridement tomorrow / 10/28/2017 --Left lower extremity critical limb ischemia/nonhealing ulcer/area of gangrene s/p revascularization, vascular following --Peripheral vascular disease ;Continue antiplatelets and statins s/p right AKA --Chronic kidney disease stage IV; avoid nephrotoxins, as the monitor renal function --Anemia of chronic kidney disease; Received 2 units of PRBC, closely monitor H&H --Hypertension; moderate control, continue current antihypertensives When necessary medications --Type 2 diabetes mellitus; Accu-Chek sliding scale coverage and ADA diet and insulin/oral hypoglycemics --DVT prophylaxis; SCDs No pharmacologic anticoagulation in view of anemia requiring blood transfusion --Full CODE STATUS Plan of care reviewed with the family member at the bedside and her nurse History Interval history: Patient seen and examined medical records reviewed Patient feels slightly better. Daughter at the bedside No new events reported by nursing Vital signs as reviewed Surgical debridement tomorrow for surgery Hospitalist Physical - Constitutional Vitals: Temp Pulse Resp BP Pulse Ox 99.4 F 66 18 105/50 94 10/26/17 14:22 10/26/17 22:00 10/26/17 14:22 10/26/17 14:22 10/26/17 14:22 General appearance: Present: no acute distress, well-nourished - EENT Eyes: Present: PERRL, EOM intact - Neck Neck: Present: supple, normal ROM - Respiratory Respiratory effort: normal Respiratory: bilateral: diminished, negative: rales, rhonchi, wheezing - Cardiovascular Rhythm: regular Heart Sounds: Present: S1 & S2 - Extremities Extremities: no ischemia, No edema, abnormal ( left foot in dressing) Extremity abnormal: other (right AKA) Peripheral Pulses: within normal limits - Abdominal General gastrointestinal: deferred, non-tender, non-distended - Integumentary Integumentary: Present: clear, warm - Psychiatric Psychiatric: appropriate mood/affect, cooperative - Neurologic Neurologic: moves all extremities Results - Labs CBC & Chem 7: 10/25/17 09:20 10/27/17 04:30 Labs: Laboratory Last Values WBC 8.6 K/mm3 (4.5-11.0) 10/25/17 09:20 RBC 3.52 M/mm3 (3.65-5.03) L 10/25/17 09:20 Hgb 8.3 gm/dl (10.1-14.3) L 10/25/17 09:20 Hct 26.4 % (30.3-42.9) L 10/25/17 09:20 MCV 75 fl (79-97) L 10/25/17 09:20 MCH 24 pg (28-32) L 10/25/17 09:20 MCHC 32 % (30-34) 10/25/17 09:20 RDW 20.5 % (13.2-15.2) H 10/25/17 09:20 Plt Count 277 K/mm3 (140-440) 10/25/17 09:20 Lymph % (Auto) 18.1 % (13.4-35.0) 10/21/17 04:35 [place] % (Auto) 9.2 % (0.0-7.3) H 10/21/17 04:35 Eos % (Auto) 0.6 % (0.0-4.3) 10/21/17 04:35 Baso % (Auto) 0.2 % (0.0-1.8) 10/21/17 04:35 Lymph # 1.4 K/mm3 (1.2-5.4) 10/21/17 04:35 [place] # 0.7 K/mm3 (0.0-0.8) 10/21/17 04:35 Eos # 0.1 K/mm3 (0.0-0.4) 10/21/17 04:35 Baso # 0.0 K/mm3 (0.0-0.1) 10/21/17 04:35 Seg Neutrophils % 71.9 % (40.0-70.0) H 10/21/17 04:35 Seg Neutrophils # 5.7 K/mm3 (1.8-7.7) 10/21/17 04:35 Sodium 138 mmol/L (137-145) 10/27/17 04:30 Potassium 4.0 mmol/L (3.6-5.0) 10/27/17 04:30 Chloride 102.6 mmol/L (98-107) 10/27/17 04:30 Carbon Dioxide 22 mmol/L (22-30) 10/27/17 04:30 Anion Gap 17 mmol/L 10/27/17 04:30 BUN 22 mg/dL (7-17) H 10/27/17 04:30 Creatinine 2.0 mg/dL (0.7-1.2) H 10/27/17 04:30 Estimated GFR 29 ml/min 10/27/17 04:30 BUN/Creatinine Ratio 11 % 10/27/17 04:30 Glucose 62 mg/dL (65-100) L 10/27/17 04:30 POC Glucose 92 (70-105) 10/26/17 21:38 Hemoglobin A1c 5.8 % (4-6) 10/20/17 14:27 Calcium 8.6 mg/dL (8.4-10.2) 10/27/17 04:30 Total Bilirubin 0.20 mg/dL (0.1-1.2) 10/21/17 04:35 AST 9 units/L (5-40) 10/21/17 04:35 ALT < 5 units/L (7-56) L 10/21/17 04:35 Alkaline Phosphatase 62 units/L (35-129) 10/21/17 04:35 Total Protein 6.7 g/dL (6.3-8.2) 10/21/17 04:35 Albumin 2.9 g/dL (3.9-5) L 10/21/17 04:35 Albumin/Globulin Ratio 0.8 % 10/21/17 04:35 Blood Type A POSITIVE 10/24/17 12:26 Antibody Screen Negative 10/24/17 12:26 Crossmatch See Detail 10/24/17 12:26
[2017-10-27] MEDS: SODIUM CHLORIDE FLUSH SYRINGE 10 ML IV PRN (08:09)
[2017-10-27] MEDS: ceFAZolin 1 GM in NACL 0.9% 20 ML IV SCH ×2 (08:09→19:21)
--- NOTE | 2017-10-27 08:46 | Progress Note ---
Assessment and Plan 1. Peripheral vascular disease status post right below knee amputation 2. Type 2 diabetes mellitus 3. Essential hypertension 4. Obesity 5. CKD stage 4 Plan. Cardiac-day stable continue present management Subjective Date of service: 10/27/17 Principal diagnosis: chronic kidney disease, hyperkalemia Interval history: No cardiac symptoms Objective Vital Signs Temp Pulse Pulse Resp BP Pulse Ox 10/27/17 07:24 98.1 F 59 L 18 91/36 95 10/27/17 02:09 99.1 F 68 18 105/53 92 10/26/17 22:00 66 10/26/17 19:42 99.6 F 67 18 135/62 91 10/26/17 14:22 99.4 F 65 18 105/50 94 10/26/17 10:01 18 10/26/17 10:00 65 65 18 100 10/26/17 09:55 75 140/86 - Physical Examination General: No Apparent Distress HEENT: Positive: PERRL Neck: Positive: neck supple. Negative: JVD/HJR Cardiac: Positive: Regular Rate, S1/S2, Laterally Displaced Lungs: Positive: clear to auscultation, No Wheeze, Rales, Rhonchi Abdomen: Positive: Unremarkable. Negative: Active Bowel Sounds Extremities: Present: Other (right AKA) - Labs and Meds Comprehensive Metabolic Panel 10/27/17 Range/Units 04:30 Sodium 138 (137-145) mmol/L Potassium 4.0 (3.6-5.0) mmol/L Chloride 102.6 (98-107) mmol/L Carbon Dioxide 22 (22-30) mmol/L BUN 22 H (7-17) mg/dL Creatinine 2.0 H (0.7-1.2) mg/dL Glucose 62 L (65-100) mg/dL Calcium 8.6 (8.4-10.2) mg/dL - Imaging and Cardiology EKG: report reviewed
[2017-10-27] MEDS: ROCALTROL PO SCH (09:24)
[2017-10-27] MEDS: HALFPRIN EC PO SCH (09:25)
[2017-10-27] MEDS: PLAVIX PO SCH (09:25)
[2017-10-27] MEDS: COLACE PO SCH ×2 (09:25→21:29)
[2017-10-27] MEDS: GLUCOTROL PO SCH ×2 (09:26→21:29)
[2017-10-27] MEDS: PEPCID PO SCH ×2 (09:26→21:29)
[2017-10-27] MEDS: NEURONTIN PO SCH ×2 (09:26→21:29)
[2017-10-27] MEDS: PROCARDIA XL PO SCH (09:26)
[2017-10-27] MEDS: LOPRESSOR PO SCH (09:27)
--- NOTE | 2017-10-27 14:39 | Progress Note ---
Assessment and Plan - Patient Problems (1) Acute hyperkalemia Current Visit: Yes Status: Acute Plan to address problem: Hyperkalemia treated medically. Potassium has improved. Continue low potassium diet. (2) Bleeding ulcer Current Visit: Yes Status: Acute Plan to address problem: Being managed by primary attending. (3) Acute post-hemorrhagic anemia Current Visit: Yes Status: Acute Plan to address problem: Posttransfusion hemoglobin improved to 8.3 (4) Type 2 diabetes mellitus with diabetic nephropathy Current Visit: Yes Status: Acute Plan to address problem: Blood sugar management by primary attending (5) Hypertensive chronic kidney disease with stage 1 through stage 4 chronic kidney disease, or unspecified chronic kidney disease Current Visit: Yes Status: Acute Plan to address problem: Follow blood pressure on current medications (6) Atherosclerosis of [place] arteries of the extremities with ulceration Current Visit: No Status: Acute Plan to address problem: Continue with wound care, general surgery and vascular surgery management. Status post angioplasty of aorta and left lower extremity vasculature. Renal function remains stable s/p revascularization with minimal contrast exposure. (7) Diabetic foot ulcer associated with type 2 diabetes mellitus Current Visit: Yes Status: Acute Plan to address problem: Continue wound care (8) Chronic kidney disease, stage IV (severe) Current Visit: No Status: Chronic Plan to address problem: Continue Measures to slow progression of kidney disease. Subjective Date of service: 10/27/17 Principal diagnosis: chronic kidney disease, hyperkalemia Interval history: pt awake, alert, in NAD Objective - Vital Signs Vital signs: Vital Signs - 12hr 10/27/17 10/27/17 10/27/17 07:24 09:17 09:27 Temperature 98.1 F Pulse Rate 59 L 69 69 Pulse Rate [ Apical] Respiratory 18 Rate Blood Pressure 91/36 115/49 115/49 O2 Sat by Pulse 95 92 Oximetry 10/27/17 10:00 Temperature Pulse Rate 69 Pulse Rate [ 69 Apical] Respiratory 18 Rate Blood Pressure O2 Sat by Pulse Oximetry - General Appearance General appearance: well-developed, well-nourished, appears stated age EENT: ATNC, PERRL, mucous membranes moist Neck: no JVD Respiratory: Present: Clear to Ascultation Cardiology: regular, S1S2 Gastrointestinal: normoactive bowel sounds Integumentary: no rash, other (no edema ) Neurologic: no focal deficit, alert and oriented x3, strength 5/5, CN 3-12 intact Psychiatric: mood/affect appropriate, cooperative - Lab 10/25/17 09:20 10/27/17 04:30 Most recent lab results Calcium 8.6 mg/dL (8.4-10.2) 10/27/17 04:30
--- NOTE | 2017-10-27 14:51 | Event Note ---
Date: 10/27/17 Recent notes reviewed. Preoperative orders entered into computer for surgery tomorrow.
[2017-10-27] MEDS: D5/0.45NS 1,000 ML IV SCH (20:31)
[2017-10-28] MEDS: PERCOCET 5/325 PO PRN ×2 (00:51→19:02)
[2017-10-28] MEDS: HumaLOG SUB-Q SCH ×5 (04:15→22:40)
[2017-10-28] MEDS: DAKIN'S FULL STRENGTH TP SCH ×3 (04:58→16:00)
[2017-10-28 07:39] LABS: Basophils % (Auto) 0.7 % (0.0-1.8); Eosinophils # (Auto) 0.3 K/mm3 (0.0-0.4); Eosinophils % (Auto) 6.2 % (0.0-4.3); Hematocrit 25.2 % (30.3-42.9); Hemoglobin 7.8 gm/dl (10.1-14.3); Lymphocytes % (Auto) 22.4 % (13.4-35.0); Mean Corpuscular HGB Conc 31 % (30-34); Mean Corpuscular Volume 75 fl (79-97); Monocytes # (Auto) 0.6 K/mm3 (0.0-0.8); Platelet Count 268 K/mm3 (140-440); Red Blood Count 3.38 M/mm3 (3.65-5.03)
[2017-10-28 07:43] LABS: Mean Corpuscular Hemoglobin 23 pg (28-32); Red Cell Distribution Width 20.4 % (13.2-15.2)
[2017-10-28 07:48] LABS: INR 1.07 (0.87-1.13)
[2017-10-28 07:49] LABS: Partial Thromboplastin Time 38.5 Sec. (24.2-36.6)
[2017-10-28 08:00] LABS: Calcium 8.7 mg/dL (8.4-10.2)
[2017-10-28] MEDS: ceFAZolin 1 GM in NACL 0.9% 20 ML IV SCH ×2 (08:05→21:21)
[2017-10-28] MEDS: SODIUM CHLORIDE FLUSH SYRINGE 10 ML IV PRN (08:05)
--- NOTE | 2017-10-28 09:26 | Progress Note ---
Assessment and Plan Assessment and plan: --Diabetic foot ulcer; On IV antibiotics, supportive care Schedule for surgical debridement today 10/28/2017 --Left lower extremity critical limb ischemia/nonhealing ulcer/area of gangrene s/p revascularization, per vascular --Peripheral vascular disease ;Continue antiplatelets and statins s/p right AKA --Chronic kidney disease stage IV; avoid nephrotoxins, as the monitor renal function --Anemia of chronic kidney disease; Received 2 units of PRBC, closely monitor H&H --Hypertension; moderate control, continue current antihypertensives When necessary medications --Type 2 diabetes mellitus; Accu-Chek sliding scale coverage and ADA diet and insulin/oral hypoglycemics --DVT prophylaxis; SCDs No pharmacologic anticoagulation in view of anemia requiring blood transfusion --Full CODE STATUS Plan of care reviewed with the family member at the bedside and her nurse History Interval history: Patient seen and examined medical records reviewed No new events reported by the nursing Patient comfortable no new complaints Scheduled for surgical debridement today Vital signs noted Hospitalist Physical - Constitutional Vitals: Temp Pulse Resp BP Pulse Ox 98.9 F 67 20 129/57 93 10/28/17 07:58 10/28/17 08:33 10/28/17 08:33 10/28/17 07:58 10/28/17 08:33 General appearance: Present: no acute distress, well-nourished - EENT Eyes: Present: PERRL, EOM intact - Neck Neck: Present: supple, normal ROM - Respiratory Respiratory effort: normal Respiratory: negative: rales, rhonchi, wheezing - Cardiovascular Rhythm: regular Heart Sounds: Present: S1 & S2 - Extremities Extremities: abnormal (right AKA) Extremity abnormal: other (left foot in dressing) - Abdominal General gastrointestinal: soft, non-tender, non-distended, normal bowel sounds - Integumentary Integumentary: Present: clear, warm - Psychiatric Psychiatric: appropriate mood/affect, cooperative - Neurologic Neurologic: other (residual weakness) Results - Labs CBC & Chem 7: 10/28/17 06:58 10/28/17 06:58 Labs: Laboratory Last Values WBC 4.4 K/mm3 (4.5-11.0) L 10/28/17 06:58 RBC 3.38 M/mm3 (3.65-5.03) L 10/28/17 06:58 Hgb 7.8 gm/dl (10.1-14.3) L 10/28/17 06:58 Hct 25.2 % (30.3-42.9) L 10/28/17 06:58 MCV 75 fl (79-97) L 10/28/17 06:58 MCH 23 pg (28-32) L 10/28/17 06:58 MCHC 31 % (30-34) 10/28/17 06:58 RDW 20.4 % (13.2-15.2) H 10/28/17 06:58 Plt Count 268 K/mm3 (140-440) 10/28/17 06:58 Lymph % (Auto) 22.4 % (13.4-35.0) 10/28/17 06:58 [place] % (Auto) 13.0 % (0.0-7.3) H 10/28/17 06:58 Eos % (Auto) 6.2 % (0.0-4.3) H 10/28/17 06:58 Baso % (Auto) 0.7 % (0.0-1.8) 10/28/17 06:58 Lymph # 1.0 K/mm3 (1.2-5.4) L 10/28/17 06:58 [place] # 0.6 K/mm3 (0.0-0.8) 10/28/17 06:58 Eos # 0.3 K/mm3 (0.0-0.4) 10/28/17 06:58 Baso # 0.0 K/mm3 (0.0-0.1) 10/28/17 06:58 Seg Neutrophils % 57.7 % (40.0-70.0) 10/28/17 06:58 Seg Neutrophils # 2.5 K/mm3 (1.8-7.7) 10/28/17 06:58 PT 14.5 Sec. (12.2-14.9) 10/28/17 06:58 INR 1.07 (0.87-1.13) 10/28/17 06:58 APTT 38.5 Sec. (24.2-36.6) H 10/28/17 06:58 Sodium 139 mmol/L (137-145) 10/28/17 06:58 Potassium 4.2 mmol/L (3.6-5.0) 10/28/17 06:58 Chloride 102.7 mmol/L (98-107) 10/28/17 06:58 Carbon Dioxide 23 mmol/L (22-30) 10/28/17 06:58 Anion Gap 18 mmol/L 10/28/17 06:58 BUN 22 mg/dL (7-17) H 10/28/17 06:58 Creatinine 1.9 mg/dL (0.7-1.2) H 10/28/17 06:58 Estimated GFR 31 ml/min 10/28/17 06:58 BUN/Creatinine Ratio 12 % 10/28/17 06:58 Glucose 97 mg/dL (65-100) 10/28/17 06:58 POC Glucose 108 (70-105) H 10/28/17 08:06 Hemoglobin A1c 5.8 % (4-6) 10/20/17 14:27 Calcium 8.7 mg/dL (8.4-10.2) 10/28/17 06:58 Total Bilirubin 0.20 mg/dL (0.1-1.2) 10/21/17 04:35 AST 9 units/L (5-40) 10/21/17 04:35 ALT < 5 units/L (7-56) L 10/21/17 04:35 Alkaline Phosphatase 62 units/L (35-129) 10/21/17 04:35 Total Protein 6.7 g/dL (6.3-8.2) 10/21/17 04:35 Albumin 2.9 g/dL (3.9-5) L 10/21/17 04:35 Albumin/Globulin Ratio 0.8 % 10/21/17 04:35 Blood Type A POSITIVE 10/28/17 06:57 Antibody Screen Negative 10/28/17 06:57 Crossmatch See Detail 10/24/17 12:26
--- NOTE | 2017-10-28 09:42 | Progress Note ---
Assessment and Plan PVD s/p revascularization Left lower extremity ulcers Anemia s/p transfusion of PRBCs Hypertension Diabetes Chronic renal failure Conservative cardiac management. Subjective Date of service: 10/28/17 Principal diagnosis: chronic kidney disease, hyperkalemia Interval history: Patient is planned for debridement of the left foot wound today. She denies chest pain and shortness of breath. No reported events on telemetry monitoring. Objective Vital Signs Temp Pulse Pulse Resp BP Pulse Ox 10/28/17 08:33 67 20 93 10/28/17 07:58 98.9 F 67 20 129/57 93 10/28/17 02:56 99.1 F 73 16 110/45 93 10/27/17 22:00 67 91 H 97 10/27/17 19:42 98.9 F 91 H 20 120/62 95 10/27/17 14:44 100.2 F H 75 18 117/48 93 10/27/17 10:00 69 69 18 - Physical Examination General: No Apparent Distress HEENT: Positive: PERRL Neck: Negative: JVD/HJR Cardiac: Positive: Reg Rate and Rhythm Lungs: Positive: Decreased Breath Sounds Extremities: Present: Other (right AKA) - Labs and Meds Coagulation 10/28/17 Range/Units 06:58 PT 14.5 (12.2-14.9) Sec. INR 1.07 (0.87-1.13) APTT 38.5 H (24.2-36.6) Sec. CBC 10/28/17 Range/Units 06:58 WBC 4.4 L (4.5-11.0) K/mm3 RBC 3.38 L (3.65-5.03) M/mm3 Hgb 7.8 L (10.1-14.3) gm/dl Hct 25.2 L (30.3-42.9) % Plt Count 268 (140-440) K/mm3 Lymph # 1.0 L (1.2-5.4) K/mm3 [place] # 0.6 (0.0-0.8) K/mm3 Eos # 0.3 (0.0-0.4) K/mm3 Baso # 0.0 (0.0-0.1) K/mm3 Comprehensive Metabolic Panel 10/28/17 Range/Units 06:58 Sodium 139 (137-145) mmol/L Potassium 4.2 (3.6-5.0) mmol/L Chloride 102.7 (98-107) mmol/L Carbon Dioxide 23 (22-30) mmol/L BUN 22 H (7-17) mg/dL Creatinine 1.9 H (0.7-1.2) mg/dL Glucose 97 (65-100) mg/dL Calcium 8.7 (8.4-10.2) mg/dL
[2017-10-28] MEDS: GLUCOTROL PO SCH ×2 (10:55→21:10)
[2017-10-28] MEDS: COLACE PO SCH ×2 (10:55→21:11)
[2017-10-28] MEDS: LOPRESSOR PO SCH (10:55)
[2017-10-28] MEDS: HALFPRIN EC PO SCH (10:55)
[2017-10-28] MEDS: PEPCID PO SCH ×2 (10:56→21:09)
[2017-10-28] MEDS: PLAVIX PO SCH (10:56)
[2017-10-28] MEDS: NEURONTIN PO SCH ×2 (10:56→21:10)
[2017-10-28] MEDS: PROCARDIA XL PO SCH (10:56)
[2017-10-28] MEDS: ROCALTROL PO SCH (10:56)
--- NOTE | 2017-10-28 10:56 | Progress Note ---
Assessment and Plan - Patient Problems (1) Acute hyperkalemia Current Visit: Yes Status: Acute Plan to address problem: Potassium has improved. Continue low potassium diet. (2) Bleeding ulcer Current Visit: Yes Status: Acute Plan to address problem: Being managed by primary attending. (3) Acute post-hemorrhagic anemia Current Visit: Yes Status: Acute Plan to address problem: transfuse with PRBC for Hb <7 (4) Type 2 diabetes mellitus with diabetic nephropathy Current Visit: Yes Status: Acute Plan to address problem: Blood sugar management by primary attending (5) Hypertensive chronic kidney disease with stage 1 through stage 4 chronic kidney disease, or unspecified chronic kidney disease Current Visit: Yes Status: Acute Plan to address problem: Follow blood pressure on current medications (6) Atherosclerosis of [place] arteries of the extremities with ulceration Current Visit: No Status: Acute Plan to address problem: Continue with wound care, general surgery and vascular surgery management. Status post angioplasty of aorta and left lower extremity vasculature. Renal function remains stable s/p revascularization with minimal contrast exposure. (7) Diabetic foot ulcer associated with type 2 diabetes mellitus Current Visit: Yes Status: Acute Plan to address problem: Continue wound care (8) Chronic kidney disease, stage IV (severe) Current Visit: No Status: Chronic Plan to address problem: Continue Measures to slow progression of kidney disease. Subjective Date of service: 10/28/17 Principal diagnosis: chronic kidney disease, hyperkalemia Interval history: pt awake, alert, in NAD. denies fever, chills, CP, SOB, n/v/d Objective - Vital Signs Vital signs: Vital Signs - 12hr 10/28/17 10/28/17 10/28/17 02:56 07:58 10:00 Temperature 99.1 F 98.9 F Pulse Rate 73 67 68 Pulse Rate [ 67 Apical] Respiratory 16 20 20 Rate Blood Pressure 110/45 129/57 O2 Sat by Pulse 93 93 93 Oximetry - General Appearance General appearance: well-developed, well-nourished, appears stated age EENT: ATNC, PERRL, mucous membranes moist Neck: no JVD Respiratory: Present: Clear to Ascultation Cardiology: regular, S1S2 Gastrointestinal: normoactive bowel sounds Integumentary: no rash, other (no edema ) Neurologic: no focal deficit, alert and oriented x3, strength 5/5, CN 3-12 intact Psychiatric: mood/affect appropriate, cooperative - Lab 10/28/17 06:58 10/28/17 06:58 Most recent lab results Calcium 8.7 mg/dL (8.4-10.2) 10/28/17 06:58
[2017-10-28] MEDS: SODIUM CHLORIDE FLUSH SYRINGE 10 ML IV SCH ×2 (10:59→21:11)
[2017-10-28] MEDS ORDERED: ZOFRAN IV PRN (13:59)
[2017-10-28] MEDS ORDERED: DILAUDID IV PRN (13:59)
[2017-10-28] MEDS ORDERED: PEPCID IV NR (14:00)
--- NOTE | 2017-10-28 14:06 | Anesthesia Consultation ---
Anesthesia Consult and Med Hx Date of service: 10/28/17 - Airway Anesthetic Teeth Evaluation: Edentulous ROM Head & Neck: Adequate Mental/Hyoid Distance: Adequate Mallampati Class: Class III Intubation Access Assessment: Possibly Difficult - Pulmonary Exam CTA: Yes - Cardiac Exam Cardiac Exam: RRR - Pre-Operative Health Status ASA Pre-Surgery Classification: ASA4 Proposed Anesthetic Plan: General - Pulmonary Hx Smoking: No Hx Asthma: Yes Hx Respiratory Symptoms: No SOB: No Hx Sleep Apnea: No - Cardiovascular System Hx Hypertension: Yes Hx Coronary Artery Disease: Yes Hx Heart Attack/AMI: Yes Hx Angina: No Hx Percutaneous Transluminal Coronary Angioplasty (PTCA): No Hx Cardia Arrhythmia: Yes Hx Pacemaker: No Hx Internal Defibrillator: No Hx Heart Murmur: Yes Hx Peripheral Vascular Disease: Yes - Central Nervous System CVA: Yes (2013) Hx Psychiatric Problems: No - Gastrointestinal Hx Gastroesophageal Reflux Disease: No - Endocrine Hx Renal Disease: Yes (CHRONIC) Hx Insulin Dependent Diabetes: Yes Hx Non-Insulin Dependent Diabetes: Yes - Hematic Hx Anemia: Yes Hx Sickle Cell Disease: No - Other Systems Hx Cancer: No Hx Obesity: Yes
--- NOTE | 2017-10-28 14:07 | Anesthesia Day of Surgery ---
Anesthesia Day of Surgery - Day of Surgery Patient Examined: Yes Patient H&P Reviewed: Yes Patient is NPO: Yes
[2017-10-28] MEDS: NACL 0.9% 1000 ML 1,000 ML IV SCH (14:24)
[2017-10-28] MEDS ORDERED: XYLOCAINE MPF 2% ONE (14:35)
[2017-10-28] MEDS ORDERED: SUBLIMAZE ONE (14:44)
[2017-10-28] MEDS ORDERED: DIPRIVAN 10 MG/ML IV ONE (14:45)
[2017-10-28] MEDS ORDERED: NACL 0.9% IR ONE (14:48)
[2017-10-28] MEDS ORDERED: ePHEDrine 50 MG/5 ML-0.9% NACL IV ONE (15:01)
[2017-10-28] MEDS ORDERED: ZOFRAN ONE (15:38)
--- NOTE | 2017-10-28 15:51 | Post Operative Note ---
Date of procedure: 10/28/17 Pre-op diagnosis: infected left foot wounds Post-op diagnosis: same Findings: Post debridement measurements: Left lateral: 14cm x 6 cm x 1 cm Left medial: 11cm x 4 cm x 0.1 cm Procedure: excisional debridement left foot wounds Anesthesia: GETA Surgeon: JOYCE VALIENTE Estimated blood loss: minimal Pathology: list (necrotic tissue left foot) Specimen disposition: to lab Condition: stable Disposition: PACU
--- NOTE | 2017-10-28 17:55 | Post Anesthesia Evaluation ---
- Post Anesthesia Evaluation Patient Participated: Yes Airway Patent: Yes Stable Respiratory Function: Yes Nausea/Vomiting: No Temp > 96.8F: Yes Pain Manageable: Yes Adequeate Hydration: Yes Anesthesia Complications: No
--- NOTE | 2017-10-28 20:45 | Progress Note ---
Assessment and Plan - Patient Problems (1) Hypertensive chronic kidney disease with stage 1 through stage 4 chronic kidney disease, or unspecified chronic kidney disease Current Visit: Yes Status: Acute Plan to address problem: follow renal. (2) Anemia Current Visit: Yes Status: Acute Plan to address problem: stable post transfusion. (3) Peripheral vascular disease Current Visit: Yes Status: Acute Plan to address problem: follow vascular. (4) Iron deficiency Current Visit: Yes Status: Acute Plan to address problem: do iron level Subjective Date of service: 10/28/17 Principal diagnosis: chronic kidney disease, hyperkalemia Interval history: patient seen, resting in bed.,m vss, afebrile, will do iron studies. Objective - Constitutional Vitals: Vital Signs - 12hr 10/28/17 10/28/17 10/28/17 10:00 10:55 13:07 Temperature 99.4 F Pulse Rate 68 68 69 Pulse Rate [ 67 Apical] Respiratory 20 18 Rate Blood Pressure 129/57 150/68 Blood Pressure [Left] O2 Sat by Pulse 93 93 Oximetry 10/28/17 10/28/17 10/28/17 13:38 15:44 15:50 Temperature 98.3 F 98.2 F Pulse Rate 76 104 H 105 H Pulse Rate [ Apical] Respiratory 16 16 14 Rate Blood Pressure 156/58 147/77 147/75 Blood Pressure [Left] O2 Sat by Pulse 98 100 100 Oximetry 10/28/17 10/28/17 10/28/17 15:55 16:00 16:15 Temperature 98.1 F Pulse Rate 103 H 96 H 95 H Pulse Rate [ Apical] Respiratory 17 15 12 Rate Blood Pressure 147/75 166/72 155/74 Blood Pressure [Left] O2 Sat by Pulse 100 100 96 Oximetry 10/28/17 10/28/17 10/28/17 16:25 16:36 16:42 Temperature 98.7 F 98.7 F Pulse Rate 90 84 84 Pulse Rate [ Apical] Respiratory 13 16 18 Rate Blood Pressure 154/67 165/74 Blood Pressure 165/74 [Left] O2 Sat by Pulse 95 95 95 Oximetry 10/28/17 20:18 Temperature 99.5 F Pulse Rate 105 H Pulse Rate [ Apical] Respiratory 18 Rate Blood Pressure 108/61 Blood Pressure [Left] O2 Sat by Pulse 94 Oximetry General appearance: Present: mild distress, well-nourished - EENT Eyes: PERRL, EOM intact ENT: hearing intact, clear oral mucosa Ears: bilateral: normal - Neck Neck: supple, normal ROM - Respiratory Respiratory effort: normal Respiratory: bilateral: CTA - Breasts Breasts: deferred - Cardiovascular Rhythm: regular Heart Sounds: Present: S1 & S2. Absent: gallop, rub Extremities: pulses intact, No edema, normal color, Full ROM - Gastrointestinal General gastrointestinal: Present: soft, non-tender, non-distended, normal bowel sounds Rectal Exam: deferred - Genitourinary Female genitourinary: deferred - Integumentary Integumentary: clear, warm, dry - Musculoskeletal Musculoskeletal: 1, strength equal bilaterally - Neurologic Neurologic: moves all extremities - Psychiatric Psychiatric: memory intact, appropriate mood/affect, intact judgment & insight - Labs CBC & Chem 7: 10/28/17 06:58 10/28/17 06:58 Labs: Abnormal lab results 10/24/17 10/28/17 10/28/17 Range/Units 12:26 06:58 06:58 WBC 4.4 L (4.5-11.0) K/mm3 RBC 3.38 L (3.65-5.03) M/mm3 Hgb 7.8 L (10.1-14.3) gm/dl Hct 25.2 L (30.3-42.9) % MCV 75 L (79-97) fl MCH 23 L (28-32) pg RDW 20.4 H (13.2-15.2) % [place] % (Auto) 13.0 H (0.0-7.3) % Eos % (Auto) 6.2 H (0.0-4.3) % Lymph # 1.0 L (1.2-5.4) K/mm3 APTT 38.5 H (24.2-36.6) Sec. BUN (7-17) mg/dL Creatinine (0.7-1.2) mg/dL POC Glucose (70-105) Crossmatch See Detail 10/28/17 10/28/17 10/28/17 Range/Units 06:58 08:06 12:07 WBC (4.5-11.0) K/mm3 RBC (3.65-5.03) M/mm3 Hgb (10.1-14.3) gm/dl Hct (30.3-42.9) % MCV (79-97) fl MCH (28-32) pg RDW (13.2-15.2) % [place] % (Auto) (0.0-7.3) % Eos % (Auto) (0.0-4.3) % Lymph # (1.2-5.4) K/mm3 APTT (24.2-36.6) Sec. BUN 22 H (7-17) mg/dL Creatinine 1.9 H (0.7-1.2) mg/dL POC Glucose 108 H 113 H (70-105) Crossmatch 10/28/17 10/28/17 Range/Units 15:58 16:48 WBC (4.5-11.0) K/mm3 RBC (3.65-5.03) M/mm3 Hgb (10.1-14.3) gm/dl Hct (30.3-42.9) % MCV (79-97) fl MCH (28-32) pg RDW (13.2-15.2) % [place] % (Auto) (0.0-7.3) % Eos % (Auto) (0.0-4.3) % Lymph # (1.2-5.4) K/mm3 APTT (24.2-36.6) Sec. BUN (7-17) mg/dL Creatinine (0.7-1.2) mg/dL POC Glucose 107 H 107 H (70-105) Crossmatch
--- NOTE | 2017-10-28 21:56 | Operative Report ---
Operative Report Operative Report: Date of procedure: 10/28/17 Pre-op diagnosis: infected left foot wounds Post-op diagnosis: same Findings: Post debridement measurements: Left lateral: 14cm x 6 cm x 1 cm Left medial: 11cm x 4 cm x 0.1 cm Procedure: excisional debridement left foot wounds Anesthesia: VIVIANEA Surgeon: JOYCE VALIENTE Estimated blood loss: minimal Pathology: list (necrotic tissue left foot) Specimen disposition: to lab Condition: stable Disposition: PACU HPI an indication: 77-year-old female with a history of peripheral vascular disease and chronic diabetic left foot wounds presented to the hospital with complaints of bleeding from her left foot wounds. The patient is on Plavix for her peripheral vascular disease. Her wounds were found to be necrotic and infected. The patient underwent revascularization with interventional radiology and subsequently was consented for a debridement of the left foot wounds. All risks, benefits, and alternatives were discussed with the patient. Consent was signed. Procedure in detail: The patient was identified in preoperative area and taken back to operating room placed on operating table in supine position. After anesthesia was induced her dressings were removed and the foot was prepped and draped in usual sterile fashion using Betadine. First the medial foot wound was debrided. The necrotic tissue and slough were removed using a combination of sharp dissection with a 15 blade and curette. Pressure was held to stop generalized oozing. Then, the lateral wound or necrotic tissue and slough was debrided in a similar fashion, sharply with a 15 blade and with a curette. Pressure was held to stop generalized oozing. Post debridement measurements were: Left lateral: 14cm x 6 cm x 1 cm and Left medial: 11cm x 4 cm x 0.1 cm. The wounds were irrigated with saline. Bone was visible on the medial aspect of the wound, and tendon was visible on the lateral posterior aspect of the wound. There were some small areas of oozing from the tissues and Surgicel was applied to the wound bed and pressure held until hemostasis was achieved. Callus around the wound was removed bluntly. The wound was covered with 4 x 4 fluff gauze and ABD pads and wrapped with Kerlix. This was then wrapped with a 4 inch Marcelino wrap. At the end of the case, all sponge, instrument, sharp counts were correct 2. The patient tolerated the procedure well. She was awoken from anesthesia and extubated and taken to PACU in stable condition.
[2017-10-29] MEDS: DAKIN'S FULL STRENGTH TP SCH ×2 (05:16→17:21)
[2017-10-29 05:58] LABS: Basophils % (Auto) 0.5 % (0.0-1.8); Eosinophils # (Auto) 0.2 K/mm3 (0.0-0.4); Eosinophils % (Auto) 4.2 % (0.0-4.3); Hematocrit 24.4 % (30.3-42.9); Hemoglobin 7.6 gm/dl (10.1-14.3); Lymphocytes # (Auto) 0.8 K/mm3 (1.2-5.4); Lymphocytes % (Auto) 18.1 % (13.4-35.0); Mean Corpuscular HGB Conc 31 % (30-34); Mean Corpuscular Volume 75 fl (79-97); Monocytes # (Auto) 0.7 K/mm3 (0.0-0.8); Monocytes % (Auto) 15.9 % (0.0-7.3); Platelet Count 285 K/mm3 (140-440); Red Blood Count 3.25 M/mm3 (3.65-5.03)
[2017-10-29 06:08] LABS: Mean Corpuscular Hemoglobin 24 pg (28-32); Red Cell Distribution Width 20.9 % (13.2-15.2)
[2017-10-29 06:14] LABS: Calcium 8.7 mg/dL (8.4-10.2)
[2017-10-29] MEDS: HumaLOG SUB-Q SCH ×3 (08:20→17:21)
[2017-10-29] MEDS: ceFAZolin 1 GM in NACL 0.9% 20 ML IV SCH (08:26)
--- NOTE | 2017-10-29 09:15 | Progress Note ---
Assessment and Plan Assessment and plan: --Infected necrotic wound of the left diabetic foot; status post surgical debridement yesterday Continue wound care, IV antibiotics, follow cultures --osteomyelitis of fifth metatarsal and distal first metatarsal ID consulted, evaluation noted and appreciated Advised vancomycin cefepime and Flagyl --Left lower extremity critical limb ischemia/nonhealing ulcer/area of gangrene s/p revascularization, per vascular --Peripheral vascular disease ;Continue antiplatelets and statins s/p right AKA --Chronic kidney disease stage IV; avoid nephrotoxins, as the monitor renal function --Anemia of chronic kidney disease; Received 2 units of PRBC, hemoglobin today 7.6 closely monitor H&H --Hypertension; moderate control, continue current antihypertensives When necessary medications --Type 2 diabetes mellitus; Accu-Chek sliding scale coverage and ADA diet and insulin/oral hypoglycemics --DVT prophylaxis; SCDs No pharmacologic anticoagulation in view of anemia requiring blood transfusion --Full CODE STATUS Plan of care reviewed with the family member at the bedside and her nurse History Interval history: Patient seen and examined medical history reviewed Patient is scheduled for surgical debridement of the foot No new events reported by the nursing Vital signs noted Hospitalist Physical - Constitutional Vitals: Temp Pulse Resp BP Pulse Ox 99.3 F 75 18 123/55 95 10/29/17 07:27 10/29/17 07:27 10/29/17 07:27 10/29/17 07:27 10/29/17 07:27 General appearance: Present: no acute distress, well-nourished - EENT Eyes: Present: PERRL, EOM intact - Neck Neck: Present: supple, normal ROM - Respiratory Respiratory effort: labored Respiratory: bilateral: diminished, negative: rales, rhonchi, wheezing - Cardiovascular Rhythm: regular Heart Sounds: Present: S1 & S2 - Extremities Extremities: abnormal (dressing in place) Extremity abnormal: edema - Abdominal General gastrointestinal: soft, non-tender, non-distended, normal bowel sounds - Integumentary Integumentary: Present: clear, warm - Psychiatric Psychiatric: appropriate mood/affect, cooperative - Neurologic Neurologic: CNII-XII intact, moves all extremities Results - Labs CBC & Chem 7: 10/29/17 05:22 10/29/17 05:22 Labs: Laboratory Last Values WBC 4.6 K/mm3 (4.5-11.0) 10/29/17 05:22 RBC 3.25 M/mm3 (3.65-5.03) L 10/29/17 05:22 Hgb 7.6 gm/dl (10.1-14.3) L 10/29/17 05:22 Hct 24.4 % (30.3-42.9) L 10/29/17 05:22 MCV 75 fl (79-97) L 10/29/17 05:22 MCH 24 pg (28-32) L 10/29/17 05:22 MCHC 31 % (30-34) 10/29/17 05:22 RDW 20.9 % (13.2-15.2) H 10/29/17 05:22 Plt Count 285 K/mm3 (140-440) 10/29/17 05:22 Lymph % (Auto) 18.1 % (13.4-35.0) 10/29/17 05:22 Carbon % (Auto) 15.9 % (0.0-7.3) H 10/29/17 05:22 Eos % (Auto) 4.2 % (0.0-4.3) 10/29/17 05:22 Baso % (Auto) 0.5 % (0.0-1.8) 10/29/17 05:22 Lymph # 0.8 K/mm3 (1.2-5.4) L 10/29/17 05:22 Carbon # 0.7 K/mm3 (0.0-0.8) 10/29/17 05:22 Eos # 0.2 K/mm3 (0.0-0.4) 10/29/17 05:22 Baso # 0.0 K/mm3 (0.0-0.1) 10/29/17 05:22 Seg Neutrophils % 61.3 % (40.0-70.0) 10/29/17 05:22 Seg Neutrophils # 2.8 K/mm3 (1.8-7.7) 10/29/17 05:22 PT 14.5 Sec. (12.2-14.9) 10/28/17 06:58 INR 1.07 (0.87-1.13) 10/28/17 06:58 APTT 38.5 Sec. (24.2-36.6) H 10/28/17 06:58 Sodium 140 mmol/L (137-145) 10/29/17 05:22 Potassium 4.8 mmol/L (3.6-5.0) 10/29/17 05:22 Chloride 103.9 mmol/L (98-107) 10/29/17 05:22 Carbon Dioxide 22 mmol/L (22-30) 10/29/17 05:22 Anion Gap 19 mmol/L 10/29/17 05:22 BUN 22 mg/dL (7-17) H 10/29/17 05:22 Creatinine 1.8 mg/dL (0.7-1.2) H 10/29/17 05:22 Estimated GFR 33 ml/min 10/29/17 05:22 BUN/Creatinine Ratio 12 % 10/29/17 05:22 Glucose 91 mg/dL (65-100) 10/29/17 05:22 POC Glucose 69 (70-105) L 10/29/17 07:34 Hemoglobin A1c 5.8 % (4-6) 10/20/17 14:27 Calcium 8.7 mg/dL (8.4-10.2) 10/29/17 05:22 Total Bilirubin 0.20 mg/dL (0.1-1.2) 10/21/17 04:35 AST 9 units/L (5-40) 10/21/17 04:35 ALT < 5 units/L (7-56) L 10/21/17 04:35 Alkaline Phosphatase 62 units/L (35-129) 10/21/17 04:35 Total Protein 6.7 g/dL (6.3-8.2) 10/21/17 04:35 Albumin 2.9 g/dL (3.9-5) L 10/21/17 04:35 Albumin/Globulin Ratio 0.8 % 10/21/17 04:35 Blood Type A POSITIVE 10/28/17 06:57 Antibody Screen Negative 10/28/17 06:57 Crossmatch See Detail 10/24/17 12:26
[2017-10-29] MEDS: ROCALTROL PO SCH (09:35)
[2017-10-29] MEDS: COLACE PO SCH ×2 (09:35→23:48)
[2017-10-29] MEDS: GLUCOTROL PO SCH ×2 (09:36→23:48)
[2017-10-29] MEDS: LOPRESSOR PO SCH (09:36)
[2017-10-29] MEDS: NEURONTIN PO SCH ×2 (09:36→23:47)
[2017-10-29] MEDS: HALFPRIN EC PO SCH (09:36)
[2017-10-29] MEDS: PLAVIX PO SCH (09:36)
[2017-10-29] MEDS: PROCARDIA XL PO SCH (09:36)
[2017-10-29] MEDS: SODIUM CHLORIDE FLUSH SYRINGE 10 ML IV SCH ×2 (09:37→23:49)
[2017-10-29] MEDS: PEPCID PO SCH ×2 (09:37→23:47)
--- NOTE | 2017-10-29 10:26 | Progress Note ---
Assessment and Plan PVD s/p revascularization Left lower extremity ulcers s/p debridement Anemia s/p transfusion of PRBCs Hypertension Diabetes Chronic renal failure Conservative cardiac management. Subjective Date of service: 10/29/17 Principal diagnosis: chronic kidney disease, hyperkalemia Interval history: She denies chest pain and shortness of breath. No reported events on telemetry monitoring. Objective Vital Signs Temp Pulse Pulse Resp BP BP Pulse Ox 10/29/17 09:36 75 123/55 10/29/17 07:27 99.3 F 75 18 123/55 95 10/29/17 05:00 77 10/29/17 04:09 98.3 F 20 110/41 10/28/17 22:00 76 105 H 18 94 10/28/17 20:18 99.5 F 105 H 18 108/61 94 10/28/17 16:42 98.7 F 84 18 165/74 95 10/28/17 16:36 98.7 F 84 16 165/74 95 10/28/17 16:25 90 13 154/67 95 10/28/17 16:15 98.1 F 95 H 12 155/74 96 10/28/17 16:00 96 H 15 166/72 100 10/28/17 15:55 103 H 17 147/75 100 10/28/17 15:50 105 H 14 147/75 100 10/28/17 15:44 98.2 F 104 H 16 147/77 100 10/28/17 13:38 98.3 F 76 16 156/58 98 10/28/17 13:07 99.4 F 69 18 150/68 93 10/28/17 10:55 68 129/57 - Physical Examination General: No Apparent Distress HEENT: Positive: PERRL Cardiac: Positive: Reg Rate and Rhythm Skin: Positive: Wound (left lower extremity) Extremities: Present: Other (right AKA) - Labs and Meds CBC 10/29/17 Range/Units 05:22 WBC 4.6 (4.5-11.0) K/mm3 RBC 3.25 L (3.65-5.03) M/mm3 Hgb 7.6 L (10.1-14.3) gm/dl Hct 24.4 L (30.3-42.9) % Plt Count 285 (140-440) K/mm3 Lymph # 0.8 L (1.2-5.4) K/mm3 [place] # 0.7 (0.0-0.8) K/mm3 Eos # 0.2 (0.0-0.4) K/mm3 Baso # 0.0 (0.0-0.1) K/mm3 Comprehensive Metabolic Panel 10/29/17 Range/Units 05:22 Sodium 140 (137-145) mmol/L Potassium 4.8 (3.6-5.0) mmol/L Chloride 103.9 (98-107) mmol/L Carbon Dioxide 22 (22-30) mmol/L BUN 22 H (7-17) mg/dL Creatinine 1.8 H (0.7-1.2) mg/dL Glucose 91 (65-100) mg/dL Calcium 8.7 (8.4-10.2) mg/dL
--- NOTE | 2017-10-29 11:11 | Consultation ---
History of Present Illness - Reason for Consult Consult date: 10/29/17 osteomyelitis Requesting physician: JOYCE VALIENTE - History of Present Illness 77 y/o female with history of diabetes s/p right AKA, hypertension and dyslipidemia; admitted on 10/20/17 due to persistent bleeding from chronic ulcer on the left foot after she hit her wheelchair prior to arrival. She has a large chronic ulcer in the left foot which is being treated by the [facility]. In the ED, temp 98.6, HR 90, BP 103/55. WBC 9.3. Hg 7.1. Crat 2.9. MRI foot showed 5th MT and distal 1st MT and base 1 toe osteomyelitis. The patient underwent revascularization with interventional radiology for critical limb on . By 10/24 temp 100.7. By 10/22 temp 101.5. Patient was taken to the OR for debridement on 10/28, tissue cx were obtained. Microbiology: none Current Antimicrobials: none Previous Antimicrobials: Past History Past Medical History: diabetes, hypertension, hyperlipidemia, PVD, renal failure , other (nonhealing left lower extremity wounds) Past Surgical History: Other (R AKA, LLE revascularization procedures, multiple debridements L foot wounds) Social history: no significant social history Family history: no significant family history Medications and Allergies Allergies Allergy/AdvReac Type Severity Reaction Status Date / Time Sulfa (Sulfonamide Allergy Hives Verified 10/20/17 13:11 Antibiotics) Home Medications Medication Instructions Recorded Confirmed Last Taken Type Atorvastatin [Lipitor] 40 mg PO QPM 12/10/13 10/20/17 10/19/17 History Gabapentin 300 mg PO BID PRN 12/10/13 10/20/17 10/20/17 History Metoprolol Tartrate 100 mg PO QAM 12/10/13 10/20/17 10/20/17 History NIFEdipine [Nifedipine ER] 60 mg PO DAILY 12/10/13 10/20/17 10/20/17 History glipiZIDE [Glucotrol] 1 tab PO QAM 05/07/14 10/20/17 10/20/17 History Vitamin D 1 cap PO QWEEK 03/21/15 10/20/17 10/17/17 History Clopidogrel [Plavix] 1 tab PO QAM 06/06/15 10/20/17 10/20/17 History glipiZIDE 0.5 tab PO QPM 06/06/15 10/20/17 10/19/17 History Calcitriol [Rocaltrol] 1 mcg PO QDAY 10/20/17 10/20/17 10/20/17 History traMADol [Ultram] 50 mg PO Q12H PRN 10/20/17 10/20/17 Unknown History Active Meds: Active Medications Acetaminophen (Tylenol) 650 mg PO Q4H PRN PRN Reason: Pain MILD(1-3)/Fever >100.5/RUELAS Last Admin: 10/24/17 02:08 Dose: 650 mg Aspirin (Halfprin Ec) 81 mg PO QDAY [facility] Last Admin: 10/29/17 09:36 Dose: 81 mg Atorvastatin Calcium (Lipitor) 40 mg PO QHS [facility] Last Admin: 10/28/17 21:11 Dose: 40 mg Calcitriol (Rocaltrol) 1 mcg PO QDAY [facility] Last Admin: 10/29/17 09:35 Dose: 1 mcg Clopidogrel Bisulfate (Plavix) 75 mg PO QDAY [facility] Last Admin: 10/29/17 09:36 Dose: 75 mg Dextrose (D50w (25gm) Syringe) 50 ml IV PRN PRN PRN Reason: Hypoglycemia Last Admin: 10/24/17 08:26 Dose: 50 ml Docusate Sodium (Colace) 100 mg PO BID [facility] Last Admin: 10/29/17 09:35 Dose: 100 mg Famotidine (Pepcid) 10 mg PO BID [facility] Last Admin: 10/29/17 09:37 Dose: 10 mg Gabapentin (Neurontin) 300 mg PO BID [facility] Last Admin: 10/29/17 09:36 Dose: 300 mg Glipizide (Glucotrol) 5 mg PO QAM [facility] Last Admin: 10/29/17 09:36 Dose: 5 mg Glipizide (Glucotrol) 2.5 mg PO QHS [facility] Last Admin: 10/28/17 21:10 Dose: 2.5 mg Dextrose/Sodium Chloride (D5/0.45ns) 1,000 mls @ 50 mls/hr IV DIRECT [facility] Last Admin: 10/27/17 20:31 Dose: 50 mls/hr Sodium Chloride (Nacl 0.9% 1000 Ml) 1,000 mls @ 42 mls/hr IV DIRECT [facility] Last Admin: 10/28/17 14:24 Dose: 42 mls/hr Insulin Human Lispro (Humalog) 0 unit SUB-Q ACHS [facility]; Protocol Last Admin: 10/29/17 08:20 Dose: Not Given Metoprolol Tartrate (Lopressor) 100 mg PO QAM [facility] Last Admin: 10/29/17 09:36 Dose: 100 mg Morphine Sulfate (Morphine) 2 mg IV Q4H PRN PRN Reason: Pain, Moderate (4-6) Last Admin: 10/23/17 21:02 Dose: 2 mg Nifedipine (Procardia Xl) 60 mg PO DAILY [facility] Last Admin: 10/29/17 09:36 Dose: 60 mg Ondansetron HCl (Zofran) 4 mg IV Q8H PRN PRN Reason: Nausea And Vomiting Oxycodone/Acetaminophen (Percocet 5/325) 1 tab PO Q6H PRN PRN Reason: Pain, Moderate (4-6) Last Admin: 10/28/17 19:02 Dose: 1 tab Sodium Chloride (Sodium Chloride Flush Syringe 10 Ml) 10 ml IV PRN PRN PRN Reason: LINE FLUSH Last Admin: 10/28/17 08:05 Dose: 10 ml Sodium Chloride (Sodium Chloride Flush Syringe 10 Ml) 10 ml IV BID [facility] Last Admin: 10/29/17 09:37 Dose: 10 ml Sodium Hypochlorite (Dakin's Full Strength) 1 applic TP Q12H [facility] Last Admin: 10/29/17 05:16 Dose: Not Given Tramadol HCl (Ultram) 50 mg PO Q12H PRN PRN Reason: Pain Last Admin: 10/21/17 14:14 Dose: 50 mg Physical Examination - Physical Exam Narrative exam: General appearance: Alert in NAD, conversant Eyes: anicteric sclerae, moist conjunctivae; no lid-lag; PERRLA HENT: Atraumatic; oropharynx clear with moist mucous membranes and no mucosal ulcerations/no oral thrush; normal hard and soft palate. Normal external ears. Neck: Trachea midline; supple, no thyromegaly or lymphadenopathy Lungs: CTA, with normal respiratory effort and no intercostal retractions CV: RRR, no murmurs Abdomen: Soft, non-tender; no masses or hepatosplenomegaly Extremities: right AKA, left foot with surgical dressings Skin: Normal temperature, turgor and texture; no rash, ulcers or subcutaneous nodules Psych: Appropriate affect, alert and oriented to person, place and time. Neuro: alert and oriented x 3. Moving all extermities Lines: No CVL / PICC - Constitutional Vitals: Vital Signs Temp Pulse Resp BP Pulse Ox 99.3 F 75 18 123/55 95 10/29/17 07:27 10/29/17 09:36 10/29/17 07:27 10/29/17 09:36 10/29/17 07:27 Temperature -Last 24 Hours Temperature 99.3 F Temperature 98.3 F Temperature 99.5 F Temperature 98.7 F Temperature 98.7 F Temperature 98.1 F Temperature 98.2 F Temperature 98.3 F Temperature 99.4 F Temperature 99.4 F Results - Labs CBC & Chem 7: 10/29/17 05:22 10/29/17 05:22 Labs: Abnormal lab results 10/28/17 10/28/17 10/28/17 Range/Units 12:07 15:58 16:48 RBC (3.65-5.03) M/mm3 Hgb (10.1-14.3) gm/dl Hct (30.3-42.9) % MCV (79-97) fl MCH (28-32) pg RDW (13.2-15.2) % [place] % (Auto) (0.0-7.3) % Lymph # (1.2-5.4) K/mm3 BUN (7-17) mg/dL Creatinine (0.7-1.2) mg/dL POC Glucose 113 H 107 H 107 H (70-105) 10/28/17 10/29/17 10/29/17 Range/Units 22:12 05:22 05:22 RBC 3.25 L (3.65-5.03) M/mm3 Hgb 7.6 L (10.1-14.3) gm/dl Hct 24.4 L (30.3-42.9) % MCV 75 L (79-97) fl MCH 24 L (28-32) pg RDW 20.9 H (13.2-15.2) % [place] % (Auto) 15.9 H (0.0-7.3) % Lymph # 0.8 L (1.2-5.4) K/mm3 BUN 22 H (7-17) mg/dL Creatinine 1.8 H (0.7-1.2) mg/dL POC Glucose 150 H (70-105) 10/29/17 Range/Units 07:34 RBC (3.65-5.03) M/mm3 Hgb (10.1-14.3) gm/dl Hct (30.3-42.9) % MCV (79-97) fl MCH (28-32) pg RDW (13.2-15.2) % [place] % (Auto) (0.0-7.3) % Lymph # (1.2-5.4) K/mm3 BUN (7-17) mg/dL Creatinine (0.7-1.2) mg/dL POC Glucose 69 L (70-105) Assessment and Plan Assessment: 1) Left foot extensive gangrene -S/P revascularization with interventional radiology for critical limb on -S/P surgical debridement on 10/28 -MRI foot showed 5th MT and distal 1st MT and base 1 toe osteomyelitis. 2) Fever: from gangrene / post procedure 3) Acute on CKD 4) History of right AKA 5) Severe PVD 6) DM Plan: -follow-up tissue cultures -obtain C-reactive protein (CRP) -start vancomycin, cefepime and flagyl renally dosed -place a tunneled neck PICC for 6 weeks IV abx -pt at risk of amputation despite IV abx -needs IV abx for 6 weeks discussed with pt and family Thank you for your consultation, will follow up with you. Carolina Nelson MD Infectious Diseases Specialist [facility] ([facility] M [phone] O [phone]
--- NOTE | 2017-10-29 11:24 | Magnetic Resonance Report ---
MR OF LOWER EXTREMITY JOINT LEFT WITHOUT CONTRAST HISTORY: Left lower extremity wound, evaluate for osteomyelitis. TECHNIQUE: Multisequence, multiplanar MRI without IV gadolinium was performed to the left foot and ankle. COMPARISON: 12/08/15. FINDINGS: A large area of soft tissue skin ulceration is identified in the lateral hindfoot. There also appears to be mild skin ulceration in the medial distal foot near the first metatarsophalangeal joint. There is no evidence for soft tissue abscess or gas on MRI. There is abnormal bone marrow edema and decreased T1 signal in the fifth metatarsal which is highly suggestive of osteomyelitis. There is also mild bone marrow edema in the distal first metatarsal and base of the great toe without significant T1 findings. This may represent a very early osteomyelitis versus reactive bone marrow edema. There are mild osteoarthritic changes throughout the foot. No erosive joint pathology. I cannot confidently identify the entire course of the peroneus longus tendon in the lateral foot which may represent rupture. The remaining musculotendinous structures appear intact and unremarkable. The Achilles tendon is intact. The plantar fascia is intact. IMPRESSION: Osteomyelitis of the fifth metatarsal. Questionable osteomyelitis involving the distal first metatarsal and base of the great toe. Soft tissue ulceration as described. Probable rupture of the peroneus longus tendon.
--- NOTE | 2017-10-29 14:46 | Progress Note ---
Assessment and Plan 77 yo F s/p excisional debridement left foot wounds 1. infected L foot wounds 2. osteomyelitis 3. PVD s/p revascularization Plan: 1. reg diet 2. continue wound care, proof clerk following 3. continue plavix 4. ID consulted - recommend PICC and loan reviewer abx 5. no weight bearing L foot 6. patient will follow up in wound care clinic as outpatient. She may benefit from HBO for these new wounds. This was discussed with patient and her daughter. Thank you for this consultation, please call with questions or concerns. Subjective Date of service: 10/29/17 Narrative: Pt seen and examined. Feels better today. No f/c, cp, sob, pain. She is eating. Objective Vital Signs - 12hr 10/29/17 10/29/17 10/29/17 04:09 05:00 07:27 Temperature 98.3 F 99.3 F Pulse Rate 77 75 Pulse Rate [ Apical] Respiratory 20 18 Rate Blood Pressure 110/41 123/55 Blood Pressure [Left] O2 Sat by Pulse 95 Oximetry 10/29/17 10/29/17 10/29/17 09:36 11:30 13:50 Temperature 99.4 F Pulse Rate 75 67 Pulse Rate [ 75 Apical] Respiratory 18 18 Rate Blood Pressure 123/55 Blood Pressure 165/58 [Left] O2 Sat by Pulse 98 98 Oximetry - General physical appearance Narrative Exam: Gen: AAOx3. NAD CV: S1, S2+ Resp: even and unlabored Ext: LLE wound dressing removed. Medial wound base pink with some black areas at site of surgicel. Lateral wound base mostly pink/red with area of slough at posterior-most location. No bleeding noted. Both wounds cleansed and silver alginate placed on wound bed. Covered with ABD pads and wrapped with kerlex. - Labs 10/29/17 05:22 10/29/17 05:22 Diabetes panel 10/29/17 Range/Units 05:22 Sodium 140 (137-145) mmol/L Potassium 4.8 (3.6-5.0) mmol/L Chloride 103.9 (98-107) mmol/L Carbon Dioxide 22 (22-30) mmol/L BUN 22 H (7-17) mg/dL Creatinine 1.8 H (0.7-1.2) mg/dL Glucose 91 (65-100) mg/dL Calcium 8.7 (8.4-10.2) mg/dL Calcium panel 10/29/17 Range/Units 05:22 Calcium 8.7 (8.4-10.2) mg/dL Pituitary panel 10/29/17 Range/Units 05:22 Sodium 140 (137-145) mmol/L Potassium 4.8 (3.6-5.0) mmol/L Chloride 103.9 (98-107) mmol/L Carbon Dioxide 22 (22-30) mmol/L BUN 22 H (7-17) mg/dL Creatinine 1.8 H (0.7-1.2) mg/dL Glucose 91 (65-100) mg/dL Calcium 8.7 (8.4-10.2) mg/dL Adrenal panel 10/29/17 Range/Units 05:22 Sodium 140 (137-145) mmol/L Potassium 4.8 (3.6-5.0) mmol/L Chloride 103.9 (98-107) mmol/L Carbon Dioxide 22 (22-30) mmol/L BUN 22 H (7-17) mg/dL Creatinine 1.8 H (0.7-1.2) mg/dL Glucose 91 (65-100) mg/dL Calcium 8.7 (8.4-10.2) mg/dL - Imaging Additional Studies: MRI LLE - osteomyelitis
[2017-10-29] MEDS ORDERED: VANCOMYCIN PHARMACY TO DOSE IV SCH (16:00)
[2017-10-29] MEDS ORDERED: VANCOMYCIN VIAL 1,000 MG in NACL 0.9% 100 ML IV SCH (16:00)
--- NOTE | 2017-10-29 17:06 | Progress Note ---
Assessment and Plan - Patient Problems (1) Acute hyperkalemia Current Visit: Yes Status: Acute Plan to address problem: Potassium has improved. Continue low potassium diet. (2) Bleeding ulcer Current Visit: Yes Status: Acute Plan to address problem: Being managed by primary attending. (3) Chronic kidney disease, stage III (moderate) Current Visit: Yes Status: Acute Plan to address problem: stable renal function, Continue Measures to slow progression of kidney disease. (4) Acute post-hemorrhagic anemia Current Visit: Yes Status: Acute Plan to address problem: transfuse with PRBC for Hb <7 (5) Type 2 diabetes mellitus with diabetic nephropathy Current Visit: Yes Status: Chronic Plan to address problem: Blood sugar management by primary attending (6) Hypertensive chronic kidney disease with stage 1 through stage 4 chronic kidney disease, or unspecified chronic kidney disease Current Visit: Yes Status: Acute Plan to address problem: Follow blood pressure on current medications (7) Atherosclerosis of [place] arteries of the extremities with ulceration Current Visit: No Status: Acute Plan to address problem: Continue with wound care, general surgery and vascular surgery management. Status post angioplasty of aorta and left lower extremity vasculature. Renal function remains stable s/p revascularization with minimal contrast exposure. (8) Diabetic foot ulcer associated with type 2 diabetes mellitus Current Visit: Yes Status: Acute Plan to address problem: Continue wound care Subjective Date of service: 10/29/17 Principal diagnosis: chronic kidney disease, hyperkalemia Interval history: pt awake, alert, in NAD. denies fever, chills, CP, SOB, n/v/d Objective - Vital Signs Vital signs: Vital Signs - 12hr 10/29/17 10/29/17 10/29/17 07:27 09:36 11:30 Temperature 99.3 F Pulse Rate 75 75 Pulse Rate [ 75 Apical] Respiratory 18 18 Rate Blood Pressure 123/55 123/55 Blood Pressure [Left] O2 Sat by Pulse 95 98 Oximetry 10/29/17 13:50 Temperature 99.4 F Pulse Rate 67 Pulse Rate [ Apical] Respiratory 18 Rate Blood Pressure Blood Pressure 165/58 [Left] O2 Sat by Pulse 98 Oximetry - General Appearance General appearance: well-developed, well-nourished, appears stated age EENT: ATNC, PERRL, mucous membranes moist Neck: no JVD Respiratory: Present: Clear to Ascultation Cardiology: regular, S1S2 Gastrointestinal: normoactive bowel sounds Integumentary: no rash, other (no edema ) Neurologic: no focal deficit, alert and oriented x3, strength 5/5, CN 3-12 intact Psychiatric: mood/affect appropriate, cooperative - Lab 10/29/17 05:22 10/29/17 05:22 Most recent lab results Calcium 8.7 mg/dL (8.4-10.2) 10/29/17 05:22
[2017-10-29] MEDS: FLAGYL 500 MG/100 ML 500 MG/100 ML BAG IV SCH ×2 (17:32→23:49)
[2017-10-29] MEDS: MAXIPIME 2 GM in NACL 0.9% 20 ML IV SCH (17:32)
[2017-10-29] MEDS ORDERED: VANCOMYCIN 1,500 MG in NACL 0.9% 500 ML 500 ML IV ONE (18:00)
--- NOTE | 2017-10-29 21:29 | Progress Note ---
Assessment and Plan - Patient Problems (1) Hypertensive chronic kidney disease with stage 1 through stage 4 chronic kidney disease, or unspecified chronic kidney disease Current Visit: Yes Status: Acute Plan to address problem: follow renal. (2) Anemia Current Visit: Yes Status: Acute Plan to address problem: stable post transfusion. (3) Peripheral vascular disease Current Visit: Yes Status: Acute Plan to address problem: follow vascular. (4) Iron deficiency Current Visit: Yes Status: Acute Plan to address problem: do iron level Subjective Date of service: 10/29/17 Principal diagnosis: chronic kidney disease, hyperkalemia Interval history: patient seen, resting in bed.,m vss, afebrile, will do iron studies. patient seen/examined, resting in bed, s/p debridement., no other issues. Objective - Constitutional Vitals: Vital Signs - 12hr 10/29/17 10/29/17 10/29/17 09:36 11:30 13:50 Temperature 99.4 F Pulse Rate 75 67 Pulse Rate [ 75 Apical] Respiratory 18 18 Rate Blood Pressure 123/55 Blood Pressure 165/58 [Left] O2 Sat by Pulse 98 98 Oximetry 10/29/17 20:27 Temperature 99.6 F Pulse Rate 72 Pulse Rate [ Apical] Respiratory 20 Rate Blood Pressure 118/43 Blood Pressure [Left] O2 Sat by Pulse 94 Oximetry General appearance: Present: mild distress, well-nourished - EENT Eyes: PERRL, EOM intact ENT: hearing intact, clear oral mucosa Ears: bilateral: normal - Neck Neck: supple, normal ROM - Respiratory Respiratory effort: normal Respiratory: bilateral: CTA - Breasts Breasts: deferred - Cardiovascular Rhythm: regular Heart Sounds: Present: S1 & S2. Absent: gallop, rub Extremities: pulses intact, No edema, normal color, Full ROM - Gastrointestinal General gastrointestinal: Present: soft, non-tender, non-distended, normal bowel sounds Rectal Exam: deferred - Genitourinary Female genitourinary: deferred - Integumentary Integumentary: clear, warm, dry - Musculoskeletal Musculoskeletal: 1, strength equal bilaterally - Neurologic Neurologic: moves all extremities - Psychiatric Psychiatric: memory intact, appropriate mood/affect, intact judgment & insight - Labs CBC & Chem 7: 10/29/17 05:22 10/29/17 05:22 Labs: Abnormal lab results 10/28/17 10/29/17 10/29/17 Range/Units 22:12 05:22 05:22 RBC 3.25 L (3.65-5.03) M/mm3 Hgb 7.6 L (10.1-14.3) gm/dl Hct 24.4 L (30.3-42.9) % MCV 75 L (79-97) fl MCH 24 L (28-32) pg RDW 20.9 H (13.2-15.2) % Hall % (Auto) 15.9 H (0.0-7.3) % Lymph # 0.8 L (1.2-5.4) K/mm3 BUN 22 H (7-17) mg/dL Creatinine 1.8 H (0.7-1.2) mg/dL POC Glucose 150 H (70-105) C-Reactive Protein (0.00-1.30) mg/dL 10/29/17 10/29/17 10/29/17 Range/Units 07:34 11:19 16:21 RBC (3.65-5.03) M/mm3 Hgb (10.1-14.3) gm/dl Hct (30.3-42.9) % MCV (79-97) fl MCH (28-32) pg RDW (13.2-15.2) % Hall % (Auto) (0.0-7.3) % Lymph # (1.2-5.4) K/mm3 BUN (7-17) mg/dL Creatinine (0.7-1.2) mg/dL POC Glucose 69 L 133 H 109 H (70-105) C-Reactive Protein (0.00-1.30) mg/dL 10/29/17 Range/Units 16:41 RBC (3.65-5.03) M/mm3 Hgb (10.1-14.3) gm/dl Hct (30.3-42.9) % MCV (79-97) fl MCH (28-32) pg RDW (13.2-15.2) % Hall % (Auto) (0.0-7.3) % Lymph # (1.2-5.4) K/mm3 BUN (7-17) mg/dL Creatinine (0.7-1.2) mg/dL POC Glucose (70-105) C-Reactive Protein 10.10 H (0.00-1.30) mg/dL
[2017-10-30] MEDS: MAXIPIME 2 GM in NACL 0.9% 20 ML IV SCH ×3 (00:03→21:14)
[2017-10-30] MEDS: HumaLOG SUB-Q SCH ×5 (00:19→21:14)
[2017-10-30] MEDS: FLAGYL 500 MG/100 ML 500 MG/100 ML BAG IV SCH ×3 (06:19→21:20)
[2017-10-30 06:41] LABS: Hematocrit 23.8 % (30.3-42.9); Hemoglobin 7.2 gm/dl (10.1-14.3); Mean Corpuscular HGB Conc 30 % (30-34); Mean Corpuscular Hemoglobin 23 pg (28-32); Mean Corpuscular Volume 77 fl (79-97); Platelet Count 272 K/mm3 (140-440); Red Blood Count 3.11 M/mm3 (3.65-5.03); Red Cell Distribution Width 20.1 % (13.2-15.2)
[2017-10-30 06:42] LABS: Basophils % (Auto) 0.5 % (0.0-1.8); Eosinophils # (Auto) 0.2 K/mm3 (0.0-0.4); Eosinophils % (Auto) 4.7 % (0.0-4.3); Lymphocytes # (Auto) 0.7 K/mm3 (1.2-5.4); Lymphocytes % (Auto) 17.3 % (13.4-35.0); Monocytes # (Auto) 0.6 K/mm3 (0.0-0.8); Monocytes % (Auto) 12.9 % (0.0-7.3)
[2017-10-30] MEDS: DAKIN'S FULL STRENGTH TP SCH ×2 (06:52→16:58)
[2017-10-30 07:01] LABS: Calcium 8.7 mg/dL (8.4-10.2)
--- NOTE | 2017-10-30 10:01 | Progress Note ---
Assessment and Plan Assessment and plan: --Infected necrotic wound of the left diabetic foot; status post surgical debridement yesterday Continue wound care, IV antibiotics, follow cultures --osteomyelitis of fifth metatarsal and distal first metatarsal ID consulted, evaluation noted and appreciated Advised vancomycin cefepime and Flagyl --Left lower extremity critical limb ischemia/nonhealing ulcer/area of gangrene s/p revascularization, per vascular --Peripheral vascular disease ;Continue antiplatelets and statins s/p right AKA --Chronic kidney disease stage IV; avoid nephrotoxins, as the monitor renal function --Anemia of chronic kidney disease; Received 2 units of PRBC, hemoglobin today 7.6 closely monitor H&H --Hypertension; moderate control, continue current antihypertensives When necessary medications --Type 2 diabetes mellitus; Accu-Chek sliding scale coverage and ADA diet and insulin/oral hypoglycemics --DVT prophylaxis; SCDs No pharmacologic anticoagulation in view of anemia requiring blood transfusion --Full CODE STATUS Plan of care reviewed with the family member at the bedside and her nurse History Interval history: Patient seen and examined medical records reviewed Feels better, on IV antibiotics No new complaints Vital signs reviewed Hospitalist Physical - Constitutional Vitals: Temp Pulse Resp BP Pulse Ox 98.3 F 74 18 117/46 100 10/30/17 02:42 10/30/17 02:42 10/30/17 02:42 10/30/17 02:42 10/30/17 02:42 General appearance: Present: no acute distress, well-nourished - EENT Eyes: Present: PERRL, EOM intact - Neck Neck: Present: supple, normal ROM - Respiratory Respiratory effort: normal Respiratory: bilateral: diminished, negative: rales, rhonchi, wheezing - Cardiovascular Rhythm: regular Heart Sounds: Present: S1 & S2 - Extremities Extremities: abnormal (right AKA) Extremity abnormal: other (left osteomyelitis, dressing in place) - Abdominal General gastrointestinal: soft, non-tender, non-distended, normal bowel sounds - Integumentary Integumentary: Present: clear, warm - Psychiatric Psychiatric: appropriate mood/affect, cooperative - Neurologic Neurologic: moves all extremities Results - Labs CBC & Chem 7: 10/30/17 06:17 10/30/17 06:17 Labs: Laboratory Last Values WBC 4.3 K/mm3 (4.5-11.0) L 10/30/17 06:17 RBC 3.11 M/mm3 (3.65-5.03) L 10/30/17 06:17 Hgb 7.2 gm/dl (10.1-14.3) L 10/30/17 06:17 Hct 23.8 % (30.3-42.9) L 10/30/17 06:17 MCV 77 fl (79-97) L 10/30/17 06:17 MCH 23 pg (28-32) L 10/30/17 06:17 MCHC 30 % (30-34) 10/30/17 06:17 RDW 20.1 % (13.2-15.2) H 10/30/17 06:17 Plt Count 272 K/mm3 (140-440) 10/30/17 06:17 Lymph % (Auto) 17.3 % (13.4-35.0) 10/30/17 06:17 [place] % (Auto) 12.9 % (0.0-7.3) H 10/30/17 06:17 Eos % (Auto) 4.7 % (0.0-4.3) H 10/30/17 06:17 Baso % (Auto) 0.5 % (0.0-1.8) 10/30/17 06:17 Lymph # 0.7 K/mm3 (1.2-5.4) L 10/30/17 06:17 [place] # 0.6 K/mm3 (0.0-0.8) 10/30/17 06:17 Eos # 0.2 K/mm3 (0.0-0.4) 10/30/17 06:17 Baso # 0.0 K/mm3 (0.0-0.1) 10/30/17 06:17 Seg Neutrophils % 64.6 % (40.0-70.0) 10/30/17 06:17 Seg Neutrophils # 2.8 K/mm3 (1.8-7.7) 10/30/17 06:17 PT 14.5 Sec. (12.2-14.9) 10/28/17 06:58 INR 1.07 (0.87-1.13) 10/28/17 06:58 APTT 38.5 Sec. (24.2-36.6) H 10/28/17 06:58 Sodium 139 mmol/L (137-145) 10/30/17 06:17 Potassium 4.2 mmol/L (3.6-5.0) 10/30/17 06:17 Chloride 103.6 mmol/L (98-107) 10/30/17 06:17 Carbon Dioxide 24 mmol/L (22-30) 10/30/17 06:17 Anion Gap 16 mmol/L 10/30/17 06:17 BUN 22 mg/dL (7-17) H 10/30/17 06:17 Creatinine 1.8 mg/dL (0.7-1.2) H 10/30/17 06:17 Estimated GFR 33 ml/min 10/30/17 06:17 BUN/Creatinine Ratio 12 % 10/30/17 06:17 Glucose 58 mg/dL (65-100) L 10/30/17 06:17 POC Glucose 93 (70-105) 10/30/17 07:51 Hemoglobin A1c 5.8 % (4-6) 10/20/17 14:27 Calcium 8.7 mg/dL (8.4-10.2) 10/30/17 06:17 Total Bilirubin 0.20 mg/dL (0.1-1.2) 10/21/17 04:35 AST 9 units/L (5-40) 10/21/17 04:35 ALT < 5 units/L (7-56) L 10/21/17 04:35 Alkaline Phosphatase 62 units/L (35-129) 10/21/17 04:35 C-Reactive Protein 10.10 mg/dL (0.00-1.30) H 10/29/17 16:41 Total Protein 6.7 g/dL (6.3-8.2) 10/21/17 04:35 Albumin 2.9 g/dL (3.9-5) L 10/21/17 04:35 Albumin/Globulin Ratio 0.8 % 10/21/17 04:35 Blood Type A POSITIVE 10/28/17 06:57 Antibody Screen Negative 10/28/17 06:57 Crossmatch See Detail 10/24/17 12:26
[2017-10-30] MEDS: PROCARDIA XL PO SCH (11:23)
[2017-10-30] MEDS: GLUCOTROL PO SCH ×2 (11:23→21:14)
[2017-10-30] MEDS: HALFPRIN EC PO SCH (11:23)
[2017-10-30] MEDS: PEPCID PO SCH ×2 (11:23→21:13)
[2017-10-30] MEDS: NEURONTIN PO SCH ×2 (11:24→21:13)
[2017-10-30] MEDS: LOPRESSOR PO SCH (11:25)
[2017-10-30] MEDS: COLACE PO SCH ×2 (11:25→21:13)
[2017-10-30] MEDS: PLAVIX PO SCH (11:25)
[2017-10-30] MEDS: ROCALTROL PO SCH (11:28)
[2017-10-30] MEDS: SODIUM CHLORIDE FLUSH SYRINGE 10 ML IV SCH ×2 (11:29→22:15)
--- NOTE | 2017-10-30 14:44 | Progress Note ---
Assessment and Plan - Patient Problems (1) Acute hyperkalemia Current Visit: Yes Status: Acute Plan to address problem: Potassium has improved. Continue low potassium diet. (2) Chronic kidney disease, stage III (moderate) Current Visit: Yes Status: Acute Plan to address problem: stable renal function, Continue Measures to slow progression of kidney disease. (3) Bleeding ulcer Current Visit: Yes Status: Acute Plan to address problem: Being managed by primary attending. (4) Acute post-hemorrhagic anemia Current Visit: Yes Status: Acute Plan to address problem: transfuse with PRBC for Hb <7 (5) Type 2 diabetes mellitus with diabetic nephropathy Current Visit: Yes Status: Chronic Plan to address problem: Blood sugar management by primary attending (6) Hypertensive chronic kidney disease with stage 1 through stage 4 chronic kidney disease, or unspecified chronic kidney disease Current Visit: Yes Status: Acute Plan to address problem: Follow blood pressure on current medications (7) Atherosclerosis of [place] arteries of the extremities with ulceration Current Visit: No Status: Acute Plan to address problem: Continue with wound care, general surgery and vascular surgery management. Status post angioplasty of aorta and left lower extremity vasculature. Renal function remains stable s/p revascularization with minimal contrast exposure. (8) Diabetic foot ulcer associated with type 2 diabetes mellitus Current Visit: Yes Status: Acute Plan to address problem: Continue wound care Subjective Date of service: 10/30/17 Principal diagnosis: chronic kidney disease, hyperkalemia Interval history: pt awake, alert, in NAD. denies fever, chills, CP, SOB, n/v/d Objective - Vital Signs Vital signs: Vital Signs - 12hr 10/30/17 10/30/17 07:42 11:25 Temperature 99.6 F Pulse Rate 68 68 Respiratory 18 Rate Blood Pressure 125/55 125/55 O2 Sat by Pulse 92 Oximetry - General Appearance General appearance: well-developed, well-nourished, appears stated age EENT: ATNC, PERRL, mucous membranes moist Neck: no JVD Respiratory: Present: Clear to Ascultation Cardiology: regular, S1S2 Gastrointestinal: normoactive bowel sounds Integumentary: no rash, other (no edema ) Neurologic: no focal deficit, alert and oriented x3, strength 5/5, CN 3-12 intact Psychiatric: mood/affect appropriate, cooperative - Lab 10/30/17 06:17 10/30/17 06:17 Most recent lab results Calcium 8.7 mg/dL (8.4-10.2) 10/30/17 06:17
--- NOTE | 2017-10-30 16:32 | Progress Note ---
Assessment and Plan 77 yo F s/p excisional debridement left foot wounds, POD 2 1. infected L foot wounds 2. osteomyelitis 3. PVD s/p revascularization Plan: 1. reg diet 2. continue wound care per nursing, knot bumper following 3. continue plavix 4. ID consulted - recommend PICC and alf abx 5. no weight bearing L foot 6. patient will follow up in wound care clinic as outpatient. She may benefit from HBO for these new wounds. This was discussed with patient and her daughter. 7. Case management consult 8. cultures pending Thank you for this consultation, please call with questions or concerns. Subjective Date of service: 10/30/17 Narrative: Pt seen and examined. Resting comfortably. No acute issues.Per daughter, patient was a little confused this am but better now. Objective Vital Signs - 12hr 10/30/17 10/30/17 10/30/17 07:42 11:25 14:21 Temperature 99.6 F 98.8 F Pulse Rate 68 68 69 Respiratory 18 18 Rate Blood Pressure 125/55 125/55 122/50 O2 Sat by Pulse 92 96 Oximetry - General physical appearance Narrative Exam: Gen: Sleeping. NAD CV: S1, S2+ Resp: even and unlabored Ext: LLE dressing intact with some serous drainage - Labs 10/30/17 06:17 10/30/17 06:17 Diabetes panel 10/30/17 Range/Units 06:17 Sodium 139 (137-145) mmol/L Potassium 4.2 (3.6-5.0) mmol/L Chloride 103.6 (98-107) mmol/L Carbon Dioxide 24 (22-30) mmol/L BUN 22 H (7-17) mg/dL Creatinine 1.8 H (0.7-1.2) mg/dL Glucose 58 L (65-100) mg/dL Calcium 8.7 (8.4-10.2) mg/dL Calcium panel 10/30/17 Range/Units 06:17 Calcium 8.7 (8.4-10.2) mg/dL Pituitary panel 10/30/17 Range/Units 06:17 Sodium 139 (137-145) mmol/L Potassium 4.2 (3.6-5.0) mmol/L Chloride 103.6 (98-107) mmol/L Carbon Dioxide 24 (22-30) mmol/L BUN 22 H (7-17) mg/dL Creatinine 1.8 H (0.7-1.2) mg/dL Glucose 58 L (65-100) mg/dL Calcium 8.7 (8.4-10.2) mg/dL Adrenal panel 10/30/17 Range/Units 06:17 Sodium 139 (137-145) mmol/L Potassium 4.2 (3.6-5.0) mmol/L Chloride 103.6 (98-107) mmol/L Carbon Dioxide 24 (22-30) mmol/L BUN 22 H (7-17) mg/dL Creatinine 1.8 H (0.7-1.2) mg/dL Glucose 58 L (65-100) mg/dL Calcium 8.7 (8.4-10.2) mg/dL
--- NOTE | 2017-10-30 17:38 | Progress Note ---
Assessment and Plan Assessment: 1) Left foot extensive gangrene -S/P revascularization with interventional radiology for critical limb on -S/P surgical debridement on 10/28 -MRI foot showed 5th MT and distal 1st MT and base 1 toe osteomyelitis. -CRP=10 2) Fever: from gangrene / post procedure 3) Acute on CKD 4) History of right AKA 5) Severe PVD 6) DM Plan: -follow-up tissue cultures - pending -continue vancomycin, cefepime and flagyl renally dosed -place a tunneled neck PICC for 6 weeks IV abx -pt at risk of amputation despite IV abx -upon discharge will do vancomycin 1250 mg IV q24h, levaquin 750 mg PO q48h total 6 weeks until 12/10/17. sent to case liner Thank you for your consultation, will follow up with you. Carolina Nelson MD Infectious Diseases Specialist [facility] ([facility]) M [phone] O [phone] Subjective Date of service: 10/30/17 Principal diagnosis: chronic kidney disease, hyperkalemia Interval history: Feels better, no fever. Microbiology: none Current Antimicrobials: vanco cefepime flagyl Objective - Exam Narrative Exam: General appearance: Alert in NAD, conversant Eyes: anicteric sclerae, moist conjunctivae; no lid-lag; PERRLA HENT: Atraumatic; oropharynx clear with moist mucous membranes and no mucosal ulcerations/no oral thrush; normal hard and soft palate. Normal external ears. Neck: Trachea midline; supple, no thyromegaly or lymphadenopathy Lungs: CTA, with normal respiratory effort and no intercostal retractions CV: RRR, no murmurs Abdomen: Soft, non-tender; no masses or hepatosplenomegaly Extremities: right AKA, left foot with surgical dressings Skin: Normal temperature, turgor and texture; no rash, ulcers or subcutaneous nodules Psych: Appropriate affect, alert and oriented to person, place and time. Neuro: alert and oriented x 3. Moving all extermities Lines: No CVL / PICC - Constitutional Vitals: Vital Signs Temp Pulse Resp BP Pulse Ox 98.8 F 69 18 122/50 96 10/30/17 14:21 10/30/17 14:21 10/30/17 14:21 10/30/17 14:21 10/30/17 14:21 Temperature -Last 24 Hours Temperature 98.8 F Temperature 99.6 F Temperature 98.3 F Temperature 99.6 F - Labs CBC & Chem 7: 10/30/17 06:17 10/30/17 06:17 Labs: Abnormal lab results 10/30/17 10/30/17 Range/Units 06:17 06:17 WBC 4.3 L (4.5-11.0) K/mm3 RBC 3.11 L (3.65-5.03) M/mm3 Hgb 7.2 L (10.1-14.3) gm/dl Hct 23.8 L (30.3-42.9) % MCV 77 L (79-97) fl MCH 23 L (28-32) pg RDW 20.1 H (13.2-15.2) % [place] % (Auto) 12.9 H (0.0-7.3) % Eos % (Auto) 4.7 H (0.0-4.3) % Lymph # 0.7 L (1.2-5.4) K/mm3 BUN 22 H (7-17) mg/dL Creatinine 1.8 H (0.7-1.2) mg/dL Glucose 58 L (65-100) mg/dL
[2017-10-30] MEDS ORDERED: VANCOMYCIN 1,250 MG in NACL 0.9% 250ML 250 ML IV SCH (18:00)
--- NOTE | 2017-10-30 21:19 | Progress Note ---
Assessment and Plan - Patient Problems (1) Hypertensive chronic kidney disease with stage 1 through stage 4 chronic kidney disease, or unspecified chronic kidney disease Current Visit: Yes Status: Acute Plan to address problem: follow renal. (2) Anemia Current Visit: Yes Status: Acute Plan to address problem: stable post transfusion. (3) Peripheral vascular disease Current Visit: Yes Status: Acute Plan to address problem: follow vascular. (4) Iron deficiency Current Visit: Yes Status: Acute Plan to address problem: do iron level ordered Subjective Date of service: 10/30/17 Principal diagnosis: chronic kidney disease, hyperkalemia Interval history: patient seen, resting in bed.,m vss, afebrile, will do iron studies. patient seen/examined, resting in bed, s/p debridement., no other issues. Patient resting in bed, labs reviewed, check iron levels. Objective - Constitutional Vitals: Vital Signs - 12hr 10/30/17 10/30/17 10/30/17 10:00 11:25 14:21 Temperature 98.8 F Pulse Rate 68 69 Pulse Rate [ 78 Apical] Respiratory 18 18 Rate Blood Pressure 125/55 122/50 O2 Sat by Pulse 100 96 Oximetry 10/30/17 19:25 Temperature 99.2 F Pulse Rate 64 Pulse Rate [ Apical] Respiratory 19 Rate Blood Pressure 136/46 O2 Sat by Pulse 94 Oximetry General appearance: Present: mild distress, well-nourished - EENT Eyes: PERRL, EOM intact ENT: hearing intact, clear oral mucosa Ears: bilateral: normal - Neck Neck: supple, normal ROM - Respiratory Respiratory effort: normal Respiratory: bilateral: CTA - Breasts Breasts: deferred - Cardiovascular Rhythm: regular Heart Sounds: Present: S1 & S2. Absent: gallop, rub Extremities: pulses intact, No edema, normal color, Full ROM - Gastrointestinal General gastrointestinal: Present: soft, non-tender, non-distended, normal bowel sounds Rectal Exam: deferred - Genitourinary Female genitourinary: deferred - Integumentary Integumentary: clear, warm, dry - Musculoskeletal Musculoskeletal: 1, strength equal bilaterally - Neurologic Neurologic: moves all extremities - Psychiatric Psychiatric: memory intact, appropriate mood/affect, intact judgment & insight - Labs CBC & Chem 7: 10/30/17 06:17 10/30/17 06:17 Labs: Abnormal lab results 10/30/17 10/30/17 Range/Units 06:17 06:17 WBC 4.3 L (4.5-11.0) K/mm3 RBC 3.11 L (3.65-5.03) M/mm3 Hgb 7.2 L (10.1-14.3) gm/dl Hct 23.8 L (30.3-42.9) % MCV 77 L (79-97) fl MCH 23 L (28-32) pg RDW 20.1 H (13.2-15.2) % [place] % (Auto) 12.9 H (0.0-7.3) % Eos % (Auto) 4.7 H (0.0-4.3) % Lymph # 0.7 L (1.2-5.4) K/mm3 BUN 22 H (7-17) mg/dL Creatinine 1.8 H (0.7-1.2) mg/dL Glucose 58 L (65-100) mg/dL
[2017-10-31] MEDS: DAKIN'S FULL STRENGTH TP SCH ×2 (05:18→17:44)
[2017-10-31] MEDS: FLAGYL 500 MG/100 ML 500 MG/100 ML BAG IV SCH ×3 (05:20→22:41)
[2017-10-31] MEDS: NACL 0.9% 1000 ML 1,000 ML IV SCH (05:21)
[2017-10-31 06:16] LABS: Iron 6 ug/dL (37-170); Total Iron Binding Capacity 112 mcg/dL (250-450)
[2017-10-31 06:19] LABS: Albumin 2.7 g/dL (3.9-5); BUN/Creatinine Ratio 14; Blood Urea Nitrogen 24 mg/dL (7-17); Calcium 8.9 mg/dL (8.4-10.2); Hemolysis Index 17
[2017-10-31 06:21] LABS: Alanine Aminotransferase < 5 units/L (7-56)
[2017-10-31 06:28] LABS: Hematocrit 25.7 % (30.3-42.9); Hemoglobin 8.1 gm/dl (10.1-14.3); Mean Corpuscular HGB Conc 31 % (30-34); Mean Corpuscular Volume 74 fl (79-97); Red Cell Distribution Width 20.9 % (13.2-15.2)
[2017-10-31 06:29] LABS: Mean Corpuscular Hemoglobin 23 pg (28-32)
[2017-10-31] MEDS: HumaLOG SUB-Q SCH ×4 (07:30→22:42)
[2017-10-31 08:13] LABS: Anisocytosis 1+; Hypochromasia 1+; Platelet Estimate Consistent w Auto; Schistocytes 1+; Total Cells Counted 100
[2017-10-31 08:22] LABS: Platelet Count 310 K/mm3 (140-440)
[2017-10-31] MEDS: SODIUM CHLORIDE FLUSH SYRINGE 10 ML IV SCH ×2 (10:00→23:55)
--- NOTE | 2017-10-31 13:09 | XRay Report ---
AP CHEST: HISTORY: Left arm PICC placement The left arm PICC is coiled upon itself in the left subclavian vein. Replacement should be considered. AP view of the chest demonstrates a normal mediastinal and cardiac contour with clear lungs and normal bony and soft tissue structures. IMPRESSION: Unremarkable AP chest. The left arm PICC is coiled upon itself in the left subclavian vein.
[2017-10-31] MEDS: ROCALTROL PO SCH (13:14)
[2017-10-31] MEDS: PLAVIX PO SCH (13:15)
[2017-10-31] MEDS: GLUCOTROL PO SCH ×2 (13:15→23:31)
[2017-10-31] MEDS: MAXIPIME 2 GM in NACL 0.9% 20 ML IV SCH ×2 (13:15→22:42)
[2017-10-31] MEDS: PROCARDIA XL PO SCH (13:15)
[2017-10-31] MEDS: PEPCID PO SCH ×2 (13:15→22:40)
[2017-10-31] MEDS: COLACE PO SCH ×2 (13:16→22:40)
[2017-10-31] MEDS: HALFPRIN EC PO SCH (13:16)
[2017-10-31] MEDS: NEURONTIN PO SCH ×2 (13:17→22:39)
[2017-10-31] MEDS: LOPRESSOR PO SCH (13:19)
--- NOTE | 2017-10-31 16:59 | XRay Report ---
FINAL REPORT EXAM: XR CHEST 1V AP HISTORY: PICC placement TECHNIQUE: AP portable view of the chest PRIORS: None. FINDINGS: Lines, tubes, and devices: Left subclavian PICC line terminates in the mid superior vena cava. Lungs and pleura: Trachea is normal in position. Lungs are clear of infiltrate, pleural effusion, vascular congestion, or pneumothorax. Cardiomediastinal silhouette: Cardiac and mediastinal silhouettes are unremarkable. Calcification of the aortic arch is noted. Other: Bony structures are intact. IMPRESSION: No acute cardiopulmonary process seen. Satisfactory PICC line placement.
--- NOTE | 2017-10-31 17:21 | Progress Note ---
Assessment and Plan - Patient Problems (1) Chronic kidney disease, stage III (moderate) Current Visit: Yes Status: Acute Plan to address problem: stable renal function, Continue Measures to slow progression of kidney disease. (2) Acute hyperkalemia Current Visit: Yes Status: Acute Plan to address problem: Continue low potassium diet. (3) Bleeding ulcer Current Visit: Yes Status: Acute Plan to address problem: Being managed by primary attending. (4) Acute post-hemorrhagic anemia Current Visit: Yes Status: Acute Plan to address problem: Hb stable at 8.1 (5) Hypertensive chronic kidney disease with stage 1 through stage 4 chronic kidney disease, or unspecified chronic kidney disease Current Visit: Yes Status: Acute Plan to address problem: Follow blood pressure on current medications (6) Type 2 diabetes mellitus with diabetic nephropathy Current Visit: Yes Status: Chronic Plan to address problem: Blood sugar management by primary attending (7) Atherosclerosis of [place] arteries of the extremities with ulceration Current Visit: No Status: Acute Plan to address problem: Continue with wound care, general surgery and vascular surgery management. Status post angioplasty of aorta and left lower extremity vasculature. Renal function remains stable s/p revascularization with minimal contrast exposure. (8) Diabetic foot ulcer associated with type 2 diabetes mellitus Current Visit: Yes Status: Acute Plan to address problem: Continue wound care Subjective Date of service: 10/31/17 Principal diagnosis: chronic kidney disease, hyperkalemia Interval history: pt awake, alert, in NAD. denies fever, chills, CP, SOB, n/v/d Objective - Vital Signs Vital signs: Vital Signs - 12hr 10/31/17 10/31/17 10/31/17 08:27 13:19 15:19 Temperature 98.0 F 98.7 F Pulse Rate 58 L 58 L 60 Respiratory 18 16 Rate Blood Pressure 111/42 111/42 Blood Pressure 158/64 [Left] O2 Sat by Pulse 94 96 Oximetry - General Appearance General appearance: well-developed, well-nourished, appears stated age EENT: ATNC, PERRL, mucous membranes moist Neck: no JVD Respiratory: Present: Clear to Ascultation Cardiology: regular, S1S2 Gastrointestinal: normoactive bowel sounds Integumentary: no rash, other (no edema ) Neurologic: no focal deficit, alert and oriented x3, strength 5/5, CN 3-12 intact Psychiatric: mood/affect appropriate, cooperative - Lab 10/31/17 05:30 10/31/17 05:30 Most recent lab results Calcium 8.9 mg/dL (8.4-10.2) 10/31/17 05:30
--- NOTE | 2017-10-31 20:31 | Progress Note ---
Assessment and Plan Assessment and plan: --osteomyelitis of fifth metatarsal and distal first metatarsal ID consulted, evaluation noted and appreciated Advised vancomycin cefepime and Flagyl On discharge Vanco/Levaquin long-term IV stop date 12/10/2017 --Infected necrotic wound of the left diabetic foot; status post surgical debridement yesterday Continue wound care, IV antibiotics, follow cultures --Left lower extremity critical limb ischemia/nonhealing ulcer/area of gangrene s/p revascularization, per vascular --Peripheral vascular disease ;Continue antiplatelets and statins s/p right AKA --Chronic kidney disease stage IV; avoid nephrotoxins, as the monitor renal function --Anemia of chronic kidney disease; Received 2 units of PRBC, hemoglobin today 7.6 closely monitor H&H --Hypertension; moderate control, continue current antihypertensives When necessary medications --Type 2 diabetes mellitus; Accu-Chek sliding scale coverage and ADA diet and insulin/oral hypoglycemics --DVT prophylaxis; SCDs No pharmacologic anticoagulation in view of anemia requiring blood transfusion --Full CODE STATUS Plan of care reviewed with the family member at the bedside and her nurse Possible discharge home with home health on long-term IV antibiotics As soon as patient is medically stable[possible 1-2 days] History Interval history: Issues seen and examined no new complaints Vital signs reviewed Hospitalist Physical - Constitutional Vitals: Temp Pulse Resp BP Pulse Ox 98.7 F 60 16 158/64 96 10/31/17 15:19 10/31/17 15:19 10/31/17 15:19 10/31/17 15:19 10/31/17 15:19 General appearance: Present: mild distress, well-nourished - EENT Eyes: Present: PERRL, EOM intact - Neck Neck: Present: supple, normal ROM - Respiratory Respiratory effort: normal Respiratory: bilateral: diminished, negative: rales, rhonchi, wheezing - Cardiovascular Rhythm: regular Heart Sounds: Present: S1 & S2 - Extremities Extremities: abnormal (osteomyelitis foot) Extremity abnormal: other (status post AKA) - Abdominal General gastrointestinal: soft, non-tender, non-distended, normal bowel sounds - Integumentary Integumentary: Present: clear, warm - Psychiatric Psychiatric: cooperative - Neurologic Neurologic: moves all extremities Results - Labs CBC & Chem 7: 10/31/17 05:30 10/31/17 05:30 Labs: Laboratory Last Values WBC 7.3 K/mm3 (4.5-11.0) 10/31/17 05:30 RBC 3.50 M/mm3 (3.65-5.03) L 10/31/17 05:30 Hgb 8.1 gm/dl (10.1-14.3) L 10/31/17 05:30 Hct 25.7 % (30.3-42.9) L 10/31/17 05:30 MCV 74 fl (79-97) L 10/31/17 05:30 MCH 23 pg (28-32) L 10/31/17 05:30 MCHC 31 % (30-34) 10/31/17 05:30 RDW 20.9 % (13.2-15.2) H 10/31/17 05:30 Plt Count 310 K/mm3 (140-440) 10/31/17 05:30 Lymph % (Auto) [employer]rain [employer]er 10/31/17 05:30 [place] % (Auto) [employer]er 10/31/17 05:30 Eos % (Auto) [employer]er 10/31/17 05:30 Baso % (Auto) [employer]er 10/31/17 05:30 Lymph # [employer]er 10/31/17 05:30 [place] # Grain [employer]er 10/31/17 05:30 Eos # [employer]er 10/31/17 05:30 Baso # [employer]er 10/31/17 05:30 Add Manual Diff Complete 10/31/17 05:30 Total Counted 100 10/31/17 05:30 Seg Neutrophils % [employer]er 10/31/17 05:30 Seg Neuts % (Manual) 59.0 % (40.0-70.0) 10/31/17 05:30 Band Neutrophils % 7.0 % 10/31/17 05:30 Lymphocytes % (Manual) 19.0 % (13.4-35.0) 10/31/17 05:30 Reactive Lymphs % (Man) 0 % 10/31/17 05:30 Monocytes % (Manual) 9.0 % (0.0-7.3) H 10/31/17 05:30 Eosinophils % (Manual) 5.0 % (0.0-4.3) H 10/31/17 05:30 Basophils % (Manual) 1.0 % (0.0-1.8) 10/31/17 05:30 Metamyelocytes % 0 % 10/31/17 05:30 Myelocytes % 0 % 10/31/17 05:30 Promyelocytes % 0 % 10/31/17 05:30 Blast Cells % 0 % 10/31/17 05:30 Nucleated RBC % Not Reportable 10/31/17 05:30 Seg Neutrophils # [employer]er 10/31/17 05:30 Seg Neutrophils # Man 0.0 K/mm3 (1.8-7.7) L 10/31/17 05:30 Band Neutrophils # 0.0 K/mm3 10/31/17 05:30 Lymphocytes # (Manual) 0.0 K/mm3 (1.2-5.4) L 10/31/17 05:30 Abs React Lymphs (Man) 0.0 K/mm3 10/31/17 05:30 Monocytes # (Manual) 0.0 K/mm3 (0.0-0.8) 10/31/17 05:30 Eosinophils # (Manual) 0.0 K/mm3 (0.0-0.4) 10/31/17 05:30 Basophils # (Manual) 0.0 K/mm3 (0.0-0.1) 10/31/17 05:30 Metamyelocytes # 0.0 K/mm3 10/31/17 05:30 Myelocytes # 0.0 K/mm3 10/31/17 05:30 Promyelocytes # 0.0 K/mm3 10/31/17 05:30 Blast Cells # 0.0 K/mm3 10/31/17 05:30 WBC Morphology Not Reportable 10/31/17 05:30 Hypersegmented Neuts Not Reportable 10/31/17 05:30 Hyposegmented Neuts Not Reportable 10/31/17 05:30 Hypogranular Neuts Not Reportable 10/31/17 05:30 Smudge Cells Not Reportable 10/31/17 05:30 Toxic Granulation Not Reportable 10/31/17 05:30 Toxic Vacuolation Not Reportable 10/31/17 05:30 Dohle Bodies Not Reportable 10/31/17 05:30 Pelger-Huet Anomaly Not Reportable 10/31/17 05:30 Pati Rods Not Reportable 10/31/17 05:30 Platelet Estimate Consistent w auto 10/31/17 05:30 Clumped Platelets Not Reportable 10/31/17 05:30 Plt Clumps, EDTA Not Reportable 10/31/17 05:30 Large Platelets Not Reportable 10/31/17 05:30 Giant Platelets Not Reportable 10/31/17 05:30 Platelet Satelliting Not Reportable 10/31/17 05:30 Plt Morphology Comment Not Reportable 10/31/17 05:30 RBC Morphology Not Reportable 10/31/17 05:30 Dimorphic RBCs Not Reportable 10/31/17 05:30 Polychromasia Not Reportable 10/31/17 05:30 Hypochromasia 1+ 10/31/17 05:30 Poikilocytosis Not Reportable 10/31/17 05:30 Anisocytosis 1+ 10/31/17 05:30 Microcytosis Not Reportable 10/31/17 05:30 Macrocytosis Not Reportable 10/31/17 05:30 Spherocytes Not Reportable 10/31/17 05:30 Pappenheimer Bodies Not Reportable 10/31/17 05:30 Sickle Cells Not Reportable 10/31/17 05:30 Target Cells Not Reportable 10/31/17 05:30 Tear Drop Cells Not Reportable 10/31/17 05:30 Ovalocytes Not Reportable 10/31/17 05:30 Helmet Cells Not Reportable 10/31/17 05:30 Silva-Olinda Bodies Not Reportable 10/31/17 05:30 [place] Rings Not Reportable 10/31/17 05:30 Pamela Cells Not Reportable 10/31/17 05:30 Bite Cells Not Reportable 10/31/17 05:30 Crenated Cell Not Reportable 10/31/17 05:30 Elliptocytes Not Reportable 10/31/17 05:30 Acanthocytes (Spur) Not Reportable 10/31/17 05:30 Rouleaux Not Reportable 10/31/17 05:30 Hemoglobin C Crystals Not Reportable 10/31/17 05:30 Schistocytes 1+ 10/31/17 05:30 Malaria parasites Not Reportable 10/31/17 05:30 Camron Bodies Not Reportable 10/31/17 05:30 Hem Pathologist Commnt No 10/31/17 05:30 PT 14.5 Sec. (12.2-14.9) 10/28/17 06:58 INR 1.07 (0.87-1.13) 10/28/17 06:58 APTT 38.5 Sec. (24.2-36.6) H 10/28/17 06:58 Sodium 142 mmol/L (137-145) 10/31/17 05:30 Potassium 4.4 mmol/L (3.6-5.0) 10/31/17 05:30 Chloride 107.3 mmol/L (98-107) H 10/31/17 05:30 Carbon Dioxide 19 mmol/L (22-30) L 10/31/17 05:30 Anion Gap 20 mmol/L 10/31/17 05:30 BUN 24 mg/dL (7-17) H 10/31/17 05:30 Creatinine 1.7 mg/dL (0.7-1.2) H 10/31/17 05:30 Estimated GFR 35 ml/min 10/31/17 05:30 BUN/Creatinine Ratio 14 % 10/31/17 05:30 Glucose 40 mg/dL (65-100) L 10/31/17 05:30 POC Glucose 111 (70-105) H 10/31/17 16:31 Hemoglobin A1c 5.8 % (4-6) 10/20/17 14:27 Calcium 8.9 mg/dL (8.4-10.2) 10/31/17 05:30 Iron 6 ug/dL (37-170) L 10/31/17 05:30 TIBC 112 mcg/dL (250-450) L 10/31/17 05:30 Ferritin 465.6 ng/mL (13.0-400.0) H 10/30/17 21:39 Total Bilirubin < 0.20 mg/dL (0.1-1.2) 10/31/17 05:30 AST 15 units/L (5-40) 10/31/17 05:30 ALT < 5 units/L (7-56) L 10/31/17 05:30 Alkaline Phosphatase 63 units/L (35-129) 10/31/17 05:30 C-Reactive Protein 10.10 mg/dL (0.00-1.30) H 10/29/17 16:41 Total Protein 6.6 g/dL (6.3-8.2) 10/31/17 05:30 Albumin 2.7 g/dL (3.9-5) L 10/31/17 05:30 Albumin/Globulin Ratio 0.7 % 10/31/17 05:30 Random Vancomycin 22.2 ug/mL (0-40.0) 10/31/17 14:01 Blood Type A POSITIVE 10/28/17 06:57 Antibody Screen Negative 10/28/17 06:57 Crossmatch See Detail 10/24/17 12:26
[2017-10-31] MEDS: PERCOCET 5/325 PO PRN (22:41)
--- NOTE | 2017-10-31 22:54 | Progress Note ---
Assessment and Plan - Patient Problems (1) Hypertensive chronic kidney disease with stage 1 through stage 4 chronic kidney disease, or unspecified chronic kidney disease Current Visit: Yes Status: Acute Plan to address problem: follow renal. (2) Anemia Current Visit: Yes Status: Acute Plan to address problem: stable post transfusion. (3) Peripheral vascular disease Current Visit: Yes Status: Acute Plan to address problem: follow vascular. (4) Iron deficiency Current Visit: Yes Status: Acute Plan to address problem: do iron level ordered see notes above. Subjective Date of service: 10/31/17 Principal diagnosis: chronic kidney disease, hyperkalemia Interval history: patient seen, resting in bed.,m vss, afebrile, will do iron studies. patient seen/examined, resting in bed, s/p debridement., no other issues. Patient resting in bed, labs reviewed, check iron levels. Patient seen, resting in bed, asleep, labs reviewed, iron level extremely low, and will need replacement. Objective - Constitutional Vitals: Vital Signs - 12hr 10/31/17 10/31/17 10/31/17 13:19 15:19 20:04 Temperature 98.7 F 98.8 F Pulse Rate 58 L 60 63 Respiratory 16 18 Rate Blood Pressure 111/42 141/61 Blood Pressure 158/64 [Left] O2 Sat by Pulse 96 95 Oximetry General appearance: Present: mild distress - EENT Eyes: PERRL, EOM intact ENT: hearing intact, clear oral mucosa Ears: bilateral: normal - Neck Neck: supple, normal ROM - Respiratory Respiratory effort: normal Respiratory: bilateral: CTA - Breasts Breasts: deferred - Cardiovascular Rhythm: regular Heart Sounds: Present: S1 & S2. Absent: gallop, rub Extremities: pulses intact, No edema, normal color, Full ROM - Gastrointestinal General gastrointestinal: Present: soft, non-tender, non-distended, normal bowel sounds Rectal Exam: deferred - Genitourinary Female genitourinary: deferred - Integumentary Integumentary: clear, warm, dry - Musculoskeletal Musculoskeletal: 1, strength equal bilaterally - Neurologic Neurologic: moves all extremities - Psychiatric Psychiatric: memory intact, appropriate mood/affect, intact judgment & insight - Labs CBC & Chem 7: 10/31/17 05:30 10/31/17 05:30 Labs: Abnormal lab results 10/31/17 10/31/1718 Range/Units 05:30 05:30 05:30 RBC 3.50 L (3.65-5.03) M/mm3 Hgb 8.1 L (10.1-14.3) gm/dl Hct 25.7 L (30.3-42.9) % MCV 74 L (79-97) fl MCH 23 L (28-32) pg RDW 20.9 H (13.2-15.2) % Monocytes % (Manual) 9.0 H (0.0-7.3) % Eosinophils % (Manual) 5.0 H (0.0-4.3) % Seg Neutrophils # Man 0.0 L (1.8-7.7) K/mm3 Lymphocytes # (Manual) 0.0 L (1.2-5.4) K/mm3 Chloride 107.3 H (98-107) mmol/L Carbon Dioxide 19 L (22-30) mmol/L BUN 24 H (7-17) mg/dL Creatinine 1.7 H (0.7-1.2) mg/dL Glucose 40 L (65-100) mg/dL POC Glucose (70-105) Iron 6 L (37-170) ug/dL TIBC 112 L (250-450) mcg/dL ALT < 5 L (7-56) units/L Albumin 2.7 L (3.9-5) g/dL 10/31/17 10/31/17 10/31/17 Range/Units 08:31 16:31 21:47 RBC (3.65-5.03) M/mm3 Hgb (10.1-14.3) gm/dl Hct (30.3-42.9) % MCV (79-97) fl MCH (28-32) pg RDW (13.2-15.2) % Monocytes % (Manual) (0.0-7.3) % Eosinophils % (Manual) (0.0-4.3) % Seg Neutrophils # Man (1.8-7.7) K/mm3 Lymphocytes # (Manual) (1.2-5.4) K/mm3 Chloride (98-107) mmol/L Carbon Dioxide (22-30) mmol/L BUN (7-17) mg/dL Creatinine (0.7-1.2) mg/dL Glucose (65-100) mg/dL POC Glucose 62 L 111 H 43 L (70-105) Iron (37-170) ug/dL TIBC (250-450) mcg/dL ALT (7-56) units/L Albumin (3.9-5) g/dL
[2017-10-31] MEDS ORDERED: FERRLECIT 125 MG in NACL 0.9% 100 ML IV SCH (23:30)
[2017-11-01] MEDS: DAKIN'S FULL STRENGTH TP SCH (04:30)
[2017-11-01] MEDS: FLAGYL 500 MG/100 ML 500 MG/100 ML BAG IV SCH ×2 (05:12→17:43)
[2017-11-01] MEDS: NACL 0.9% 1000 ML 1,000 ML IV SCH ×2 (05:12→11:34)
[2017-11-01] MEDS ORDERED: VANCOMYCIN 1,250 MG in NACL 0.9% 250ML 250 ML IV SCH (06:00)
[2017-11-01] MEDS: D50W (25GM) Syringe IV PRN (08:03)
[2017-11-01] MEDS: HumaLOG SUB-Q SCH ×2 (08:08→11:55)
--- NOTE | 2017-11-01 09:24 | Progress Note ---
Assessment and Plan Assessment: 1) Left foot extensive gangrene -S/P revascularization with interventional radiology for critical limb on -S/P surgical debridement on 10/28 -Path from skin specimen sent showed gangrenous necrosis with severe acute and chronic inflammation and abundant bacteria -MRI foot showed 5th MT and distal 1st MT and base 1 toe osteomyelitis. -CRP=10 2) Fever: from gangrene / post procedure 3) Acute on CKD 4) History of right AKA 5) Severe PVD 6) DM Plan: -follow-up tissue cultures - which is growing GNRs -stop vancomycin -continue cefepime and flagyl renally dosed -pt at risk of amputation despite IV abx -upon discharge will do cefepime 2 g IV q12h and flagyl 500 mg PO TID total 6 weeks until 12/10/17. re- sent to pillowcase turner today -ID clinic 11/21/17 I am signing off Thank you for your consultation, will follow up with you. Carolina Nelson MD Infectious Diseases Specialist [facility] ([facility]) M [phone] O [phone] Subjective Date of service: 11/01/17 Principal diagnosis: chronic kidney disease, hyperkalemia Interval history: Feels ok, no fever, wants to go home. Microbiology: OR culture GNR Current Antimicrobials: vanco 10/29 cefepime 10/29 flagyl 10/29 Objective - Exam Narrative Exam: General appearance: Alert in NAD, conversant Eyes: anicteric sclerae, moist conjunctivae; no lid-lag; PERRLA HENT: Atraumatic; oropharynx clear with moist mucous membranes and no mucosal ulcerations/no oral thrush; normal hard and soft palate. Normal external ears. Neck: Trachea midline; supple, no thyromegaly or lymphadenopathy Lungs: CTA, with normal respiratory effort and no intercostal retractions CV: RRR, no murmurs Abdomen: Soft, non-tender; no masses or hepatosplenomegaly Extremities: right AKA, left foot with surgical dressings Skin: Normal temperature, turgor and texture; no rash, ulcers or subcutaneous nodules Psych: Appropriate affect, alert and oriented to person, place and time. Neuro: alert and oriented x 3. Moving all extermities Lines: No CVL / PICC - Constitutional Vitals: Vital Signs Temp Pulse Resp BP Pulse Ox 98.1 F 55 L 18 120/47 96 11/01/17 01:46 11/01/17 01:46 11/01/17 01:46 11/01/17 01:46 11/01/17 01:46 Temperature -Last 24 Hours Temperature 98.1 F Temperature 98.8 F Temperature 98.7 F - Labs CBC & Chem 7: 10/31/17 05:30 10/31/17 05:30 Labs: Abnormal lab results 10/31/17 10/31/17 10/31/17 Range/Units 08:31 16:31 21:47 POC Glucose 62 L 111 H 43 L (70-105) 11/01/17 Range/Units 07:43 POC Glucose 57 L (70-105)
--- NOTE | 2017-11-01 10:14 | Progress Note ---
Assessment and Plan - Patient Problems (1) Chronic kidney disease, stage III (moderate) Current Visit: Yes Status: Acute Plan to address problem: stable renal function, Continue Measures to slow progression of kidney disease. stable for discharge from renal stand point (2) Acute hyperkalemia Current Visit: Yes Status: Acute Plan to address problem: Continue low potassium diet. (3) Bleeding ulcer Current Visit: Yes Status: Acute Plan to address problem: Being managed by primary attending. (4) Acute post-hemorrhagic anemia Current Visit: Yes Status: Acute Plan to address problem: Hb stable at 8.1 (5) Hypertensive chronic kidney disease with stage 1 through stage 4 chronic kidney disease, or unspecified chronic kidney disease Current Visit: Yes Status: Acute Plan to address problem: Follow blood pressure on current medications (6) Type 2 diabetes mellitus with diabetic nephropathy Current Visit: Yes Status: Chronic Plan to address problem: Blood sugar management by primary attending (7) Atherosclerosis of [place] arteries of the extremities with ulceration Current Visit: No Status: Acute Plan to address problem: Continue with wound care, general surgery and vascular surgery management. Status post angioplasty of aorta and left lower extremity vasculature. Renal function remains stable s/p revascularization with minimal contrast exposure. (8) Diabetic foot ulcer associated with type 2 diabetes mellitus Current Visit: Yes Status: Acute Plan to address problem: Continue wound care Subjective Date of service: 11/01/17 Principal diagnosis: chronic kidney disease, hyperkalemia Interval history: pt awake, alert, in NAD. denies fever, chills, CP, SOB, n/v/d Objective - Vital Signs Vital signs: Vital Signs - 12hr 11/01/17 11/01/17 01:46 09:16 Temperature 98.1 F 98.5 F Pulse Rate 55 L 62 Respiratory 18 20 Rate Blood Pressure 120/47 136/58 O2 Sat by Pulse 96 96 Oximetry - General Appearance General appearance: well-developed, well-nourished, appears stated age EENT: ATNC, PERRL, mucous membranes moist Neck: no JVD Respiratory: Present: Clear to Ascultation Cardiology: regular, S1S2 Gastrointestinal: normoactive bowel sounds Integumentary: no rash, other (no edema ) Neurologic: no focal deficit, alert and oriented x3, strength 5/5, CN 3-12 intact Psychiatric: mood/affect appropriate, cooperative - Lab 10/31/17 05:30 11/01/17 08:18 Most recent lab results Calcium 8.9 mg/dL (8.4-10.2) 10/31/17 05:30
[2017-11-01] MEDS: ROCALTROL PO SCH (11:31)
[2017-11-01] MEDS: PLAVIX PO SCH (11:32)
[2017-11-01] MEDS: COLACE PO SCH (11:32)
[2017-11-01] MEDS: PROCARDIA XL PO SCH (11:32)
[2017-11-01] MEDS: PEPCID PO SCH (11:32)
[2017-11-01] MEDS: LOPRESSOR PO SCH (11:33)
[2017-11-01] MEDS: GLUCOTROL PO SCH (11:33)
[2017-11-01] MEDS: NEURONTIN PO SCH (11:34)
[2017-11-01] MEDS: HALFPRIN EC PO SCH (11:34)
[2017-11-01] MEDS: MAXIPIME 2 GM in NACL 0.9% 20 ML IV SCH (11:49)
[2017-11-01] MEDS: SODIUM CHLORIDE FLUSH SYRINGE 10 ML IV SCH (11:50)
--- NOTE | 2017-11-01 13:03 | Discharge Summary ---
Providers - Providers Date of Admission: 10/23/17 12:13 Date of discharge: 11/01/17 Attending physician: FABRICIO SILVA 10/20/17 Consult to Case Management [CONS] Routine Services Needed at Discharge: Home Health Services Notified:: Pearl 10/20/17 18:41 Consult to Physician [CONS] Routine Comment: spoke to dr. seymour , well see pat. tomorrow/alexis Consulting Provider: FLORY QIU Physician Instructions: Reason For Exam: CKD 10/21/17 08:11 Consult to Dietitian/Nutrition [CONS] Routine Physician Instructions: Reason For Exam: Reason for Consult: Malnutrition 10/21/17 15:30 Consult to Wound/ET Nurse [CONS] Routine Reason For Exam: wound eval 10/22/17 08:42 Consult to Physician [CONS] Routine Comment: Consulting Provider: JOYCE VALIENTE Physician Instructions: evaluate for debridement left foot Reason For Exam: evaluate for possible debridement 10/22/17 18:23 Consult to Physician [CONS] Routine Comment: Consulting Provider: EYAD MARTIN Physician Instructions: Reason For Exam: chronic nonhealing foot wounds 10/28/17 15:48 Consult to Physician [CONS] Routine Comment: left mess. Consulting Provider: CAROLINA HOOVER Physician Instructions: Reason For Exam: LLE wounds, likely osteo 10/30/17 16:28 Consult to PICC Line RN [CONS] Routine Reason For Exam: longterm iv abx Type Line:: PICC 10/30/17 17:41 Consult to Case Management [CONS] Urgent Services Needed at Discharge: Other Notified:: international bank manager Additional Physician Instructions: [facility] Diagnosis: foot osteomyelitis Abx: cefepime 2 g IV q12h and flagyl 500 mg PO TID total 6 weeks until 12/10/17. ID clinic 11/21/17, please call [phone] to make apt Labs: CBC, BMP, CRP every Saturday AM - results to be sent to ID clinic to fax [phone] Carolina Arana MD 11/01/17 Primary care physician: EXPLOSIVE ORDNANCE DISPOSAL TECHNICIAN Hospitalization Condition: Stable Disposition: DC/TX-06 HOME UNDER HOME HL[facility] Time spent for discharge: 35 min Core Measure Documentation - Palliative Care Palliative Care/ Comfort Measures: Palliative Care/Comfort Measures - Core Measures Any of the following diagnoses?: none Exam - Constitutional Vitals: Temp Pulse Resp BP Pulse Ox 98.5 F 62 20 136/58 96 11/01/17 09:16 11/01/17 11:33 11/01/17 09:16 11/01/17 11:33 11/01/17 09:16 General appearance: Present: no acute distress, well-nourished - EENT Eyes: Present: PERRL, EOM intact - Neck Neck: Present: supple, normal ROM - Respiratory Respiratory effort: normal - Cardiovascular Rhythm: regular Heart Sounds: Present: S1 & S2 - Extremities Extremities: abnormal (myelitis of the foot dressing in place) Extremity abnormal: other (status post right AKA) - Abdominal General gastrointestinal: Present: soft, non-tender, non-distended, normal bowel sounds - Integumentary Integumentary: Present: clear, warm - Musculoskeletal Musculoskeletal: strength equal bilaterally, generalized weakness - Psychiatric Psychiatric: appropriate mood/affect, cooperative - Neurologic Neurologic: CNII-XII intact, moves all extremities Plan Activity: advance as tolerated, fall precautions Diet: diabetic Wound: per wound nurse instructions Special Instructions: physical therapy, occupational therapy Additional Instructions: Long-term antibiotics total of 6 weeks per ID, IV cefepime 2 g every 12 hours. And Flagyl 500 mg by mouth 3 times a day for 6 weeks. Stop Date 12/10/2017. Home wound care Follow up with: SUJATA CARLTON MD [Primary Care Provider] - 3-5 Days CAROLINA HOOVER MD [Staff Physician] - 11/21/17 JOYCE VALIENTE DO [Staff Physician] - 7 Days Prescriptions: oxyCODONE /ACETAMINOPHEN [Percocet 5/325 mg] 1 tab PO BID PRN #12 tablet PRN Reason: Pain, Moderate (4-6)
[2017-11-01 13:39] VITALS: BP 139/52
[2017-11-01] MEDS: ULTRAM PO PRN (18:36)
== END 2017-11-01 19:30 | disposition home health service (06) | DRG 270 ==
LOC: ED 13:05 → 2B-ACE 15:56 → OBSVTOIN 10-23 12:13
PROVIDERS: ADMIT Internal Medicine; ATTEND Internal Medicine
PROC: 30233N1 Transfusion of Nonautologous Red Blood Cells into Peripheral Vein, Percutaneous Approach (ICD-10-PCS; 2017-10-21)
PROC: 047 Lower Arteries, Dilation (ICD-10-PCS; principal; 2017-10-24)
PROC: 047L3D1 Dilation of Left Femoral Artery with Intraluminal Device, using Drug-Coated Balloon, Percutaneous Approach (ICD-10-PCS; 2017-10-24)
PROC: 04CL3ZZ Extirpation of Matter from Left Femoral Artery, Percutaneous Approach (ICD-10-PCS; 2017-10-24)
PROC: 04CN3ZZ Extirpation of Matter from Left Popliteal Artery, Percutaneous Approach (ICD-10-PCS; 2017-10-24)
PROC: 04CU3ZZ Extirpation of Matter from Left Peroneal Artery, Percutaneous Approach (ICD-10-PCS; 2017-10-24)
PROC: 047N341 Dilation of Left Popliteal Artery with Drug-eluting Intraluminal Device, using Drug-Coated Balloon, Percutaneous Approach (ICD-10-PCS; 2017-10-24)
PROC: B41D1ZZ Fluoroscopy of Aorta and Bilateral Lower Extremity Arteries using Low Osmolar Contrast (ICD-10-PCS; 2017-10-24)
PROC: 0QBM0ZZ Excision of Left Tarsal, Open Approach (ICD-10-PCS; 2017-10-28)
DX: E11.52 Type 2 diabetes mellitus with diabetic peripheral angiopathy with gangrene (principal); E43 Unspecified severe protein-calorie malnutrition; N18.4 Chronic kidney disease, stage 4 (severe); I13.0 Hypertensive heart and chronic kidney disease with heart failure and stage 1 through stage 4 chronic kidney disease, or unspecified chronic kidney disease; D62 Acute posthemorrhagic anemia; I70.262 Atherosclerosis of native arteries of extremities with gangrene, left leg; M86.8X7 Other osteomyelitis, ankle and foot; N17.9 Acute kidney failure, unspecified; L97.423 Non-pressure chronic ulcer of left heel and midfoot with necrosis of muscle; E11.621 Type 2 diabetes mellitus with foot ulcer; E87.5 Hyperkalemia; Z89.611 Acquired absence of right leg above knee; E78.5 Hyperlipidemia, unspecified; I25.2 Old myocardial infarction; Z88.2 Allergy status to sulfonamides; E11.22 Type 2 diabetes mellitus with diabetic chronic kidney disease; E11.40 Type 2 diabetes mellitus with diabetic neuropathy, unspecified; D64.9 Anemia, unspecified; E55.9 Vitamin D deficiency, unspecified; D63.1 Anemia in chronic kidney disease; I25.10 Atherosclerotic heart disease of native coronary artery without angina pectoris; Z99.3 Dependence on wheelchair; Z95.5 Presence of coronary angioplasty implant and graft; E66.9 Obesity, unspecified; Z68.22 Body mass index [BMI] 22.0-22.9, adult; Z79.84 Long term (current) use of oral hypoglycemic drugs
CPT/HCPCS: 36415; 37225; 37229; 71045; 73721; 76937; 80048; 80053; 80202; 82728; 82947; 82962; 83036; 83550; 85007; 85018; 85025; 85027; 85610; 85730; 86140; 86850; 86900; 86901; 86920; 87076; 87116; 87186; 88304; 93005; 93010; 96365; A9270-GY; C1724; C1725; C1760; C1769; C1887; C2623; G0378; J0690; J0692; J1644; J1815; J2250; J2270; J2405; J2704; J2916; J3010; J3370; J7030; J7040; J7050; P9016; Q9967

== ENCOUNTER 2018-02-10 09:39 | Outpatient (CLI) | payer MEDICARE ==
[2018-02-10] MEDS ORDERED: XYLOCAINE TOPICAL 4% TP ONE ×2 (10:21→15:21)
[2018-02-10] MEDS ORDERED: AD OINTMENT TP ONE (11:24)
== END 2018-02-10 09:40 | disposition home or self-care (01) ==
LOC: WOUND 09:39
PROVIDERS: ATTEND Surgery
DX: E11.621 Type 2 diabetes mellitus with foot ulcer (principal); L97.421 Non-pressure chronic ulcer of left heel and midfoot limited to breakdown of skin; E11.51 Type 2 diabetes mellitus with diabetic peripheral angiopathy without gangrene; E78.2 Mixed hyperlipidemia; Z89.611 Acquired absence of right leg above knee; Z86.73 Personal history of transient ischemic attack (TIA), and cerebral infarction without residual deficits; Z87.891 Personal history of nicotine dependence
CPT/HCPCS: 11042; G0463; 99215; A6250

== ENCOUNTER 2018-06-12 12:51 | Outpatient (CLI) | payer MEDICARE ==
[2018-06-12] MEDS ORDERED: XYLOCAINE TOPICAL 4% TP ONE (13:08)
[2018-06-12] MEDS ORDERED: AD OINTMENT TP PRN (13:09)
== END 2018-06-12 12:52 | disposition home or self-care (01) ==
LOC: WOUND 12:51
PROVIDERS: ATTEND Surgery
DX: E11.621 Type 2 diabetes mellitus with foot ulcer (principal); L97.522 Non-pressure chronic ulcer of other part of left foot with fat layer exposed; I10 Essential (primary) hypertension; E11.51 Type 2 diabetes mellitus with diabetic peripheral angiopathy without gangrene; E78.5 Hyperlipidemia, unspecified; Z87.891 Personal history of nicotine dependence; Z86.73 Personal history of transient ischemic attack (TIA), and cerebral infarction without residual deficits
CPT/HCPCS: A6250

== ENCOUNTER 2018-06-18 09:05 | Day surgery (SDC) | payer MEDICARE ==
[~2018-06-18 09:05] MED LIST changes: +ANCEF/STERILE WATER 2 GM/20 ML 2 GM/20 ML SYRINGE IV NR; +NACL 0.9% 1000 ML 1,000 ML IV SCH; -XYLOCAINE TOPICAL 4% TP ONE
[2018-06-18 10:16] LABS: Basophils % (Auto) 0.8 % (0.0-1.8); Eosinophils # (Auto) 0.2 K/mm3 (0.0-0.4); Eosinophils % (Auto) 2.9 % (0.0-4.3); Hemoglobin 12.2 gm/dl (10.1-14.3); Lymphocytes # (Auto) 2.2 K/mm3 (1.2-5.4); Lymphocytes % (Auto) 39.9 % (13.4-35.0); Mean Corpuscular HGB Conc 31 % (30-34); Monocytes # (Auto) 0.7 K/mm3 (0.0-0.8); Monocytes % (Auto) 12.7 % (0.0-7.3); Platelet Count 146 K/mm3 (140-440); Red Blood Count 5.59 M/mm3 (3.65-5.03); Red Cell Distribution Width 19.1 % (13.2-15.2)
[2018-06-18 10:28] LABS: Calcium 9.2 mg/dL (8.4-10.2); Mean Corpuscular Volume 70 fl (79-97)
[2018-06-18] MEDS ORDERED: SUBLIMAZE IV PRN (11:12)
--- NOTE | 2018-06-18 11:12 | Anesthesia Day of Surgery ---
Anesthesia Day of Surgery - Day of Surgery Patient Examined: Yes Patient H&P Reviewed: Yes Patient is NPO: Yes
--- NOTE | 2018-06-18 11:12 | Anesthesia Consultation ---
Anesthesia Consult and Med Hx Date of service: 06/18/18 - Airway Anesthetic Teeth Evaluation: Edentulous ROM Head & Neck: Adequate Mental/Hyoid Distance: Inadequate Mallampati Class: Class III Intubation Access Assessment: Possibly Difficult - Pulmonary Exam CTA: Yes - Cardiac Exam Cardiac Exam: RRR - Pre-Operative Health Status ASA Pre-Surgery Classification: ASA4 Proposed Anesthetic Plan: General - Pulmonary Hx Smoking: Yes (previously 1PPD; quit 20yrs ago) Hx Asthma: No Hx Respiratory Symptoms: No SOB: No - Cardiovascular System Hx Hypertension: Yes (last dose nifedipine 06/17/18 1700) Hx Heart Attack/AMI: No Hx Percutaneous Transluminal Coronary Angioplasty (PTCA): No Hx Cardia Arrhythmia: Yes (patient unsure of exact diagnosis; no anticoagulation) Hx Pacemaker: No Hx Internal Defibrillator: No Hx Peripheral Vascular Disease: Yes - Central Nervous System Hx Seizures: No CVA: 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 Fuctional status limited by previous BKA. Denies angina, CANELA, orthopnea, palpitations.
[2018-06-18] MEDS ORDERED: HEPARIN 10,000 UNITS/10 ML ONE (12:48)
[2018-06-18] MEDS ORDERED: XYLOCAINE 1%/ EPI 1:100,000 INFILTRATI ONE ×3 (12:48→13:42)
[2018-06-18] MEDS ORDERED: MARCAINE 0.5% INFILTRATI ONE ×3 (12:48→13:54)
[2018-06-18] MEDS ORDERED: NACL 0.9% 500 ML 500 ML ONE (12:48)
[2018-06-18] MEDS ORDERED: SODIUM BICARBONATE ONE (12:49)
[2018-06-18] MEDS ORDERED: XYLOCAINE MPF 2% ONE (12:50)
[2018-06-18] MEDS ORDERED: SUBLIMAZE ONE (12:51)
[2018-06-18] MEDS ORDERED: DIPRIVAN 10 MG/ML IV ONE (12:51)
[2018-06-18] MEDS ORDERED: SODIUM BICARBONATE IV ONE (13:42)
[2018-06-18] MEDS ORDERED: NACL 0.9% IR ONE (13:42)
[2018-06-18] MEDS ORDERED: HEPARIN 10,000 UNITS/10 ML 2,000 UNIT in NACL 0.9% 500 ML 500 ML IR ONE (13:42)
[2018-06-18] MEDS ORDERED: VERSED ONE (13:51)
--- NOTE | 2018-06-18 15:18 | Operative Report ---
Operative Report Operative Report: Date of procedure: 06/18/2018 Pre-operative diagnosis: End-stage renal disease on hemodialysis Post-operative diagnosis: Same Procedure name(s): Creation of right arm brachial artery to cephalic vein arteriovenous fistula Surgeon: Ren Gold MD Plate Furnace Operator: None Anesthesia: Local Mac EBL: Minimal Specimen(s): None Complications: None Findings: Slightly small vein but otherwise adequate for AV fistula creation, excellent thrill and bruit in fistula. Excellent blood flow to the right hand post-completion of the fistula Procedure: With the right arm extended the entire extremity was then prepped and draped using standard sterile technique. . I then made a transverse l incision overlying the confluence of the median cephalic and the basilic veins in the volar aspect of proximal forearm and carried into the subcutaneous tissue. The median cephalic vein was identified and the penetrating branch was divided and the remainder of the vein mobilized. Multiple side branches were ligated but the vessel was considered adequate for fistula creation. I used one side branch to hydro-dilate the vessel margins making this final decision. Once the vein was completely mobilized and marked for rotation I then mobilized distal brachial artery at the trifurcation isolating the radial and ulnar branches with Vesseloops. The vessel was then controlled using a combination of vessel loops and DeBakey clamps and a longitudinal arteriotomy was then made over the extreme distal brachial artery. The distal end of the transected vein was then opened and an end-to-side anastomosis was then created between the 2 vessels using 6-0 Prolene suture in running technique. Prior to completion of the suture line antegrade and retrograde flushing was performed. The suture line was then completed and flow was reestablished initially into the fistula and subsequently released of the distal forearm vessels. Palpable radial pulse was documented. Strong thrill and bruit was felt in the fistula. Hemostasis was obtained using quick clot. The incision was then blocked with Marcaine 0.5% plain and then closed in layers using 3-0 Vicryl subcutaneous 4-0 Monocryl subcuticular. Skin was then sealed with Dermabond equivalent and the patient was then returned to the supine position and then to the recovery in stable condition having tolerated the procedure well. Sponge and needle counts were correct..
--- NOTE | 2018-06-18 15:23 | Short Stay Summary ---
Short Stay Documentation Date of service: 06/18/18 Narrative H&P: Admitted to the operative suite for outpatient creation of a hemodialysis fistula in the right arm - History H&P: obtained from office - Allergies and Medications Current Medications: Allergies Sulfa (Sulfonamide Antibiotics) Allergy (Verified 06/12/18 16:26) Hives Home Medications Medication Instructions Recorded Confirmed Last Taken Type Gabapentin 300 mg PO BID PRN 12/10/13 06/12/18 06/17/18 History Vitamin D 1 cap PO QWEEK 03/21/15 06/12/18 06/17/18 History Calcitriol [Rocaltrol] 1 mcg PO QDAY 10/20/17 06/12/18 06/17/18 History Mirtazapine Solutab [Remeron 15 mg PO QHS tab.rapdis 11/18/17 06/12/18 06/17/18 Rx Solutab] NIFEdipine XL [Procardia Xl] 30 mg PO QDAY tablet 11/18/17 06/12/18 06/17/18 Rx traZODone [Desyrel] 50 mg PO QHS PRN tablet 11/18/17 06/12/18 06/17/18 Rx Active Medications Fentanyl (Sublimaze) 50 mcg IV Q5MIN PRN PRN Reason: Pain , Severe (7-10) Cefazolin Sodium (Ancef/Sterile Water 2 Gm/20 Ml) 2 gm in 20 mls @ 80 mls/hr IV PREOP NR; Protocol Stop: 06/18/18 23:59 Sodium Chloride (Nacl 0.9% 1000 Ml) 1,000 mls @ 42 mls/hr IV DIRECT BRE Last Admin: 06/18/18 10:00 Dose: 42 mls/hr Documented by: - Brief post op/procedure progress note Date of procedure: 06/18/18 Pre-op diagnosis: end-stage renal disease requiring hemodialysis Post-op diagnosis: same Procedure: Pre-operative diagnosis: End-stage renal disease on hemodialysis Post-operative diagnosis: Same Procedure name(s): Creation of right arm brachial artery to cephalic vein arteriovenous fistula Surgeon: Ren Gold MD Well Logger: None Anesthesia: Local Mac EBL: Minimal Specimen(s): None Complications: None Findings: Slightly small vein but otherwise adequate for AV fistula creation, excellent thrill and bruit in fistula. Excellent blood flow to the right hand post-completion of the fistula Procedure: With the right arm extended the entire extremity was then prepped and draped using standard sterile technique. . I then made a transverse l incision overlying the confluence of the median cephalic and the basilic veins in the volar aspect of proximal forearm and carried into the subcutaneous tissue. The median cephalic vein was identified and the penetrating branch was divided and the remainder of the vein mobilized. Multiple side branches were ligated but the vessel was considered adequate for fistula creation. I used one side branch to hydro-dilate the vessel margins making this final decision. Once the vein was completely mobilized and marked for rotation I then mobilized distal brachial artery at the trifurcation isolating the radial and ulnar branches with Vesseloops. The vessel was then controlled using a combination of vessel loops and DeBakey clamps and a longitudinal arteriotomy was then made over the extreme distal brachial artery. The distal end of the transected vein was then opened and an end-to-side anastomosis was then created between the 2 vessels using 6-0 Prolene suture in running technique. Prior to completion of the suture line antegrade and retrograde flushing was performed. The suture line was then completed and flow was reestablished initially into the fistula and subsequently released of the distal forearm vessels. Palpable radial pulse was documented. Strong thrill and bruit was felt in the fistula. Hemostasis was obtained using quick clot. The incision was then blocked with Marcaine 0.5% plain and then closed in layers using 3-0 Vicryl subcutaneous 4-0 Monocryl subcuticular. Skin was then sealed with Dermabond equivalent and the patient was then returned to the supine position and then to the recovery in stable condition having tolerated the procedure well. Sponge and needle counts were correct.. - Hospital course Hospital course: Unremarkable - Disposition Condition at discharge: Stable Disposition: DC-01 TO HOME OR SELFCARE - Discharge Diagnoses (1) End-stage renal disease on hemodialysis Status: Acute Short Stay Discharge Plan Activity: advance as tolerated Weight Bearing Status: Full Weight Bearing Diet: renal Wound: keep clean and dry Special Instructions: no heavy lifting Follow up with: ED WEST DO [Primary Care Provider] - 7 Days FLORY QIU MD [Staff Physician] - 14 Days REN GOLD MD [Staff Physician] - 14 Days Prescriptions: HYDROcodone/APAP 5-325 [[place] 5/325] 1 each PO Q6HR PRN #20 tablet PRN Reason: Pain, Moderate (4-6)
[2018-06-18 19:47] VITALS: BP 143/58
== END 2018-06-18 16:25 | disposition home or self-care (01) ==
LOC: OR 09:05
PROVIDERS: ATTEND Surgery Vascular Surgery
DX: I12.0 Hypertensive chronic kidney disease with stage 5 chronic kidney disease or end stage renal disease (principal); E11.22 Type 2 diabetes mellitus with diabetic chronic kidney disease; N18.6 End stage renal disease; E11.621 Type 2 diabetes mellitus with foot ulcer; L97.529 Non-pressure chronic ulcer of other part of left foot with unspecified severity; E11.21 Type 2 diabetes mellitus with diabetic nephropathy; E11.51 Type 2 diabetes mellitus with diabetic peripheral angiopathy without gangrene; I70.25 Atherosclerosis of native arteries of other extremities with ulceration; I25.10 Atherosclerotic heart disease of native coronary artery without angina pectoris; E78.00 Pure hypercholesterolemia, unspecified; M19.90 Unspecified osteoarthritis, unspecified site; Z99.2 Dependence on renal dialysis; Z88.2 Allergy status to sulfonamides; Z79.899 Other long term (current) drug therapy; Z87.891 Personal history of nicotine dependence; Z78.9 Other specified health status; Z98.41 Cataract extraction status, right eye; Z98.42 Cataract extraction status, left eye; Z82.49 Family history of ischemic heart disease and other diseases of the circulatory system; Z98.890 Other specified postprocedural states
CPT/HCPCS: 36415; 36821; 80048; 82962; 85025; J0690; J1644; J2250; J2704; J3010; J7030; J7040

== ENCOUNTER 2018-06-23 08:40 | Outpatient (CLI) | payer MEDICARE | END 2018-06-23 08:41 | disposition home or self-care (01) | LOC: WOUND 08:40 ==

== ENCOUNTER 2018-07-07 09:00 | Outpatient (CLI) | payer MEDICARE ==
[2018-07-07] MEDS ORDERED: XYLOCAINE TOPICAL 4% TP ONE (09:15)
[2018-07-07] MEDS ORDERED: AD OINTMENT TP PRN (09:31)
== END 2018-07-07 09:01 | disposition home or self-care (01) ==
LOC: WOUND 09:00
PROVIDERS: ATTEND Surgery
DX: E11.621 Type 2 diabetes mellitus with foot ulcer (principal); L97.422 Non-pressure chronic ulcer of left heel and midfoot with fat layer exposed; L84 Corns and callosities; I10 Essential (primary) hypertension; E11.51 Type 2 diabetes mellitus with diabetic peripheral angiopathy without gangrene; E78.5 Hyperlipidemia, unspecified; N28.9 Disorder of kidney and ureter, unspecified; Z87.891 Personal history of nicotine dependence

== ENCOUNTER 2018-07-21 09:02 | Outpatient (CLI) | payer MEDICARE | END 2018-07-21 09:03 | disposition home or self-care (01) | LOC: WOUND 09:02 ==

== ENCOUNTER 2018-07-28 08:48 | Outpatient (CLI) | payer MEDICARE | END 2018-07-28 08:49 | disposition home or self-care (01) | LOC: WOUND 08:48 ==

== ENCOUNTER 2018-08-25 08:54 | Outpatient (CLI) | payer MEDICARE ==
[2018-08-25] MEDS ORDERED: XYLOCAINE TOPICAL 4% TP ONE (10:00)
[2018-08-25] MEDS ORDERED: AD OINTMENT TP PRN (10:00)
== END 2018-08-25 08:55 | disposition home or self-care (01) ==
LOC: WOUND 08:54
PROVIDERS: ATTEND Surgery
DX: E11.621 Type 2 diabetes mellitus with foot ulcer (principal); L97.522 Non-pressure chronic ulcer of other part of left foot with fat layer exposed; L84 Corns and callosities; L97.421 Non-pressure chronic ulcer of left heel and midfoot limited to breakdown of skin; E11.51 Type 2 diabetes mellitus with diabetic peripheral angiopathy without gangrene; I10 Essential (primary) hypertension; E78.5 Hyperlipidemia, unspecified; Z86.73 Personal history of transient ischemic attack (TIA), and cerebral infarction without residual deficits; N28.9 Disorder of kidney and ureter, unspecified; Z87.891 Personal history of nicotine dependence
CPT/HCPCS: 11719; 11720; A6250

== ENCOUNTER 2018-09-08 09:01 | Outpatient (CLI) | payer MEDICARE | END 2018-09-08 09:02 | disposition home or self-care (01) | LOC: WOUND 09:01 | PROVIDERS: ATTEND Surgery | DX: E11.621 Type 2 diabetes mellitus with foot ulcer (principal); L97.522 Non-pressure chronic ulcer of other part of left foot with fat layer exposed; E11.51 Type 2 diabetes mellitus with diabetic peripheral angiopathy without gangrene; L84 Corns and callosities; I10 Essential (primary) hypertension; E78.5 Hyperlipidemia, unspecified; N28.9 Disorder of kidney and ureter, unspecified; Z86.73 Personal history of transient ischemic attack (TIA), and cerebral infarction without residual deficits; Z87.891 Personal history of nicotine dependence; Z89.611 Acquired absence of right leg above knee | CPT/HCPCS: 99213; G0463 ==

== ENCOUNTER 2019-03-10 09:54 | Outpatient (CLI) | payer MEDICARE ==
[2019-03-10] MEDS ORDERED: LIDOCAINE (4%) 40 MG/ML TOPICAL SOLN 50 ML BOTTLE TP ONE (11:00)
== END 2019-03-10 09:55 | disposition home or self-care (01) ==
LOC: WOUND 09:54
PROVIDERS: ATTEND Surgery
DX: E11.621 Type 2 diabetes mellitus with foot ulcer (principal); L97.522 Non-pressure chronic ulcer of other part of left foot with fat layer exposed; L97.223 Non-pressure chronic ulcer of left calf with necrosis of muscle; E11.51 Type 2 diabetes mellitus with diabetic peripheral angiopathy without gangrene; L84 Corns and callosities; I12.9 Hypertensive chronic kidney disease with stage 1 through stage 4 chronic kidney disease, or unspecified chronic kidney disease; N18.9 Chronic kidney disease, unspecified; E78.5 Hyperlipidemia, unspecified; F41.9 Anxiety disorder, unspecified; F40.240 Claustrophobia; Z86.73 Personal history of transient ischemic attack (TIA), and cerebral infarction without residual deficits; Z87.891 Personal history of nicotine dependence; Z89.611 Acquired absence of right leg above knee
CPT/HCPCS: 11042; 11043; 11046; G0463; 99214

== ENCOUNTER 2019-03-18 07:56 | Outpatient (CLI) | payer MEDICARE ==
[2019-03-18] MEDS ORDERED: LIDOCAINE (4%) 40 MG/ML TOPICAL SOLN 50 ML BOTTLE TP ONE (09:00)
== END 2019-03-18 07:57 | disposition home or self-care (01) ==
LOC: WOUND 07:56
PROVIDERS: ATTEND Surgery
DX: E11.621 Type 2 diabetes mellitus with foot ulcer (principal); L97.522 Non-pressure chronic ulcer of other part of left foot with fat layer exposed; L97.223 Non-pressure chronic ulcer of left calf with necrosis of muscle; E11.51 Type 2 diabetes mellitus with diabetic peripheral angiopathy without gangrene; L84 Corns and callosities; I12.9 Hypertensive chronic kidney disease with stage 1 through stage 4 chronic kidney disease, or unspecified chronic kidney disease; N18.9 Chronic kidney disease, unspecified; E78.5 Hyperlipidemia, unspecified; F41.9 Anxiety disorder, unspecified; F40.240 Claustrophobia; Z86.73 Personal history of transient ischemic attack (TIA), and cerebral infarction without residual deficits; Z87.891 Personal history of nicotine dependence; Z89.611 Acquired absence of right leg above knee

== ENCOUNTER 2019-03-23 08:16 | Outpatient (CLI) | payer MEDICARE ==
[2019-03-23] MEDS ORDERED: LIDOCAINE (4%) 40 MG/ML TOPICAL SOLN 50 ML BOTTLE TP ONE (09:30)
== END 2019-03-23 08:17 | disposition home or self-care (01) ==
LOC: WOUND 08:16
PROVIDERS: ATTEND Surgery
DX: E11.621 Type 2 diabetes mellitus with foot ulcer (principal); L97.522 Non-pressure chronic ulcer of other part of left foot with fat layer exposed; L97.223 Non-pressure chronic ulcer of left calf with necrosis of muscle; E11.51 Type 2 diabetes mellitus with diabetic peripheral angiopathy without gangrene; L84 Corns and callosities; I12.9 Hypertensive chronic kidney disease with stage 1 through stage 4 chronic kidney disease, or unspecified chronic kidney disease; N18.9 Chronic kidney disease, unspecified; E78.5 Hyperlipidemia, unspecified; F41.9 Anxiety disorder, unspecified; F40.240 Claustrophobia; Z86.73 Personal history of transient ischemic attack (TIA), and cerebral infarction without residual deficits; Z87.891 Personal history of nicotine dependence; Z89.611 Acquired absence of right leg above knee

== ENCOUNTER 2019-04-13 08:52 | Outpatient (CLI) | payer MEDICARE ==
[2019-04-13] MEDS ORDERED: LIDOCAINE (4%) 40 MG/ML TOPICAL SOLN 50 ML BOTTLE TP ONE (09:30)
== END 2019-04-13 08:53 | disposition home or self-care (01) ==
LOC: WOUND 08:52
PROVIDERS: ATTEND Surgery
DX: E11.621 Type 2 diabetes mellitus with foot ulcer (principal); L97.522 Non-pressure chronic ulcer of other part of left foot with fat layer exposed; L97.223 Non-pressure chronic ulcer of left calf with necrosis of muscle; E11.51 Type 2 diabetes mellitus with diabetic peripheral angiopathy without gangrene; L84 Corns and callosities; I12.9 Hypertensive chronic kidney disease with stage 1 through stage 4 chronic kidney disease, or unspecified chronic kidney disease; N18.9 Chronic kidney disease, unspecified; E78.5 Hyperlipidemia, unspecified; F41.9 Anxiety disorder, unspecified; F40.240 Claustrophobia; Z86.73 Personal history of transient ischemic attack (TIA), and cerebral infarction without residual deficits; Z87.891 Personal history of nicotine dependence; Z89.611 Acquired absence of right leg above knee
CPT/HCPCS: 97607

== ENCOUNTER 2019-04-20 09:10 | Outpatient (CLI) | payer MEDICARE ==
[2019-04-20] MEDS ORDERED: LIDOCAINE (4%) 40 MG/ML TOPICAL SOLN 50 ML BOTTLE TP ONE (10:00)
== END 2019-04-20 09:11 | disposition home or self-care (01) ==
LOC: WOUND 09:10
PROVIDERS: ATTEND Surgery
DX: E11.621 Type 2 diabetes mellitus with foot ulcer (principal); L97.522 Non-pressure chronic ulcer of other part of left foot with fat layer exposed; L97.223 Non-pressure chronic ulcer of left calf with necrosis of muscle; E11.51 Type 2 diabetes mellitus with diabetic peripheral angiopathy without gangrene; L84 Corns and callosities; I12.9 Hypertensive chronic kidney disease with stage 1 through stage 4 chronic kidney disease, or unspecified chronic kidney disease; N18.9 Chronic kidney disease, unspecified; E78.5 Hyperlipidemia, unspecified; F41.9 Anxiety disorder, unspecified; F40.240 Claustrophobia; Z86.73 Personal history of transient ischemic attack (TIA), and cerebral infarction without residual deficits; Z87.891 Personal history of nicotine dependence; Z89.611 Acquired absence of right leg above knee
CPT/HCPCS: 97605; 97607

== ENCOUNTER 2019-04-27 08:50 | Outpatient (CLI) | payer MEDICARE ==
[2019-04-27] MEDS ORDERED: LIDOCAINE (4%) 40 MG/ML TOPICAL SOLN 50 ML BOTTLE TP ONE (09:30)
== END 2019-04-27 08:51 | disposition home or self-care (01) ==
LOC: WOUND 08:50
PROVIDERS: ATTEND Surgery
DX: E11.621 Type 2 diabetes mellitus with foot ulcer (principal); L97.522 Non-pressure chronic ulcer of other part of left foot with fat layer exposed; L97.223 Non-pressure chronic ulcer of left calf with necrosis of muscle; E11.51 Type 2 diabetes mellitus with diabetic peripheral angiopathy without gangrene; L84 Corns and callosities; I12.9 Hypertensive chronic kidney disease with stage 1 through stage 4 chronic kidney disease, or unspecified chronic kidney disease; N18.9 Chronic kidney disease, unspecified; E78.5 Hyperlipidemia, unspecified; F41.9 Anxiety disorder, unspecified; F40.240 Claustrophobia; Z86.73 Personal history of transient ischemic attack (TIA), and cerebral infarction without residual deficits; Z87.891 Personal history of nicotine dependence; Z89.611 Acquired absence of right leg above knee

== ENCOUNTER 2019-06-22 09:01 | Outpatient (CLI) | payer MEDICARE ==
[2019-06-22] MEDS ORDERED: LIDOCAINE (4%) 40 MG/ML TOPICAL SOLN 50 ML BOTTLE TP ONE (10:00)
== END 2019-06-22 09:02 | disposition home or self-care (01) ==
LOC: WOUND 09:01
PROVIDERS: ATTEND Surgery
DX: E11.621 Type 2 diabetes mellitus with foot ulcer (principal); L97.522 Non-pressure chronic ulcer of other part of left foot with fat layer exposed; L97.223 Non-pressure chronic ulcer of left calf with necrosis of muscle; E11.51 Type 2 diabetes mellitus with diabetic peripheral angiopathy without gangrene; L84 Corns and callosities; I12.9 Hypertensive chronic kidney disease with stage 1 through stage 4 chronic kidney disease, or unspecified chronic kidney disease; N18.9 Chronic kidney disease, unspecified; E78.5 Hyperlipidemia, unspecified; F41.9 Anxiety disorder, unspecified; F40.240 Claustrophobia; Z86.73 Personal history of transient ischemic attack (TIA), and cerebral infarction without residual deficits; Z87.891 Personal history of nicotine dependence; Z89.611 Acquired absence of right leg above knee

== ENCOUNTER 2019-06-29 09:14 | Outpatient (CLI) | payer MEDICARE ==
[2019-06-29] MEDS ORDERED: LIDOCAINE (4%) 40 MG/ML TOPICAL SOLN 50 ML BOTTLE TP ONE (11:00)
[2019-06-29] MEDS ORDERED: SILVER NITRATE APPLICATOR 1 EA TP ONE (11:01)
== END 2019-06-29 09:15 | disposition home or self-care (01) ==
LOC: WOUND 09:14
PROVIDERS: ATTEND Surgery
DX: E11.621 Type 2 diabetes mellitus with foot ulcer (principal); L97.522 Non-pressure chronic ulcer of other part of left foot with fat layer exposed; L97.223 Non-pressure chronic ulcer of left calf with necrosis of muscle; E11.51 Type 2 diabetes mellitus with diabetic peripheral angiopathy without gangrene; L84 Corns and callosities; I12.9 Hypertensive chronic kidney disease with stage 1 through stage 4 chronic kidney disease, or unspecified chronic kidney disease; N18.9 Chronic kidney disease, unspecified; E78.5 Hyperlipidemia, unspecified; F41.9 Anxiety disorder, unspecified; F40.240 Claustrophobia; Z86.73 Personal history of transient ischemic attack (TIA), and cerebral infarction without residual deficits; Z87.891 Personal history of nicotine dependence; Z89.611 Acquired absence of right leg above knee

== ENCOUNTER 2019-06-29 12:03 | Outpatient (CLI) | payer MEDICARE ==
--- NOTE | 2019-06-29 13:45 | XRay Report ---
RIGHT HAND 3 VIEWS INDICATION: S61.206AUnspecified open wound of right little finger without dam. COMPARISON: No relevant prior imaging study available. FINDINGS: There is bandaging at the right little finger which limits anatomic detail. There is left little finger soft tissue swelling. There is advanced erosive/destructive change at the left little finger centered at the PIP articulati on, involving the proximal portion of the middle phalanx and distal portion of the proximal phalanx. Distal phalanx appears unremarkable. There is diffuse subjective osteopenia throughout the remainder of the right hand. Osteoarthrosis thania nges are noted. IMPRESSION: 1. Soft tissue swelling at the left little finger centered at the PIP joint is concerning for celluli tis/infection. There is advanced cortical destruction about the PIP joint concerning for osteomyeliti s. Signer Name: Burke Rizo MD Signed: 06/29/2019 1:41 PM Workstation Name: [id number]
== END 2019-06-29 12:04 | disposition home or self-care (01) ==
LOC: XRAY 12:03
PROVIDERS: ATTEND Surgery
DX: S61.206D Unspecified open wound of right little finger without damage to nail, subsequent encounter (principal); M24.841 Other specific joint derangements of right hand, not elsewhere classified; M85.841 Other specified disorders of bone density and structure, right hand; M79.89 Other specified soft tissue disorders

== ENCOUNTER 2019-07-06 08:56 | Outpatient (CLI) | payer MEDICARE ==
[2019-07-06] MEDS ORDERED: LIDOCAINE (4%) 40 MG/ML TOPICAL SOLN 50 ML BOTTLE TP ONE (10:00)
[2019-07-06] MEDS ORDERED: SILVER NITRATE APPLICATOR 1 EA TP ONE (10:24)
== END 2019-07-06 08:57 | disposition home or self-care (01) ==
LOC: WOUND 08:56
PROVIDERS: ATTEND Surgery
DX: E11.621 Type 2 diabetes mellitus with foot ulcer (principal); L97.522 Non-pressure chronic ulcer of other part of left foot with fat layer exposed; E11.622 Type 2 diabetes mellitus with other skin ulcer; L97.223 Non-pressure chronic ulcer of left calf with necrosis of muscle; E11.22 Type 2 diabetes mellitus with diabetic chronic kidney disease; I12.9 Hypertensive chronic kidney disease with stage 1 through stage 4 chronic kidney disease, or unspecified chronic kidney disease; N18.4 Chronic kidney disease, stage 4 (severe); E11.51 Type 2 diabetes mellitus with diabetic peripheral angiopathy without gangrene; L84 Corns and callosities; E78.5 Hyperlipidemia, unspecified; F41.9 Anxiety disorder, unspecified; F40.240 Claustrophobia; Z86.73 Personal history of transient ischemic attack (TIA), and cerebral infarction without residual deficits; Z87.891 Personal history of nicotine dependence; Z89.611 Acquired absence of right leg above knee

== ENCOUNTER 2019-07-13 08:13 | Outpatient (CLI) | payer MEDICARE ==
[2019-07-13] MEDS ORDERED: LIDOCAINE (4%) 40 MG/ML TOPICAL SOLN 50 ML BOTTLE TP ONE (09:30)
== END 2019-07-13 08:14 | disposition home or self-care (01) ==
LOC: WOUND 08:13
PROVIDERS: ATTEND Surgery
DX: E11.621 Type 2 diabetes mellitus with foot ulcer (principal); L97.522 Non-pressure chronic ulcer of other part of left foot with fat layer exposed; E11.622 Type 2 diabetes mellitus with other skin ulcer; L97.223 Non-pressure chronic ulcer of left calf with necrosis of muscle; E11.22 Type 2 diabetes mellitus with diabetic chronic kidney disease; I12.9 Hypertensive chronic kidney disease with stage 1 through stage 4 chronic kidney disease, or unspecified chronic kidney disease; N18.4 Chronic kidney disease, stage 4 (severe); E11.51 Type 2 diabetes mellitus with diabetic peripheral angiopathy without gangrene; L84 Corns and callosities; E78.5 Hyperlipidemia, unspecified; F41.9 Anxiety disorder, unspecified; F40.240 Claustrophobia; Z86.73 Personal history of transient ischemic attack (TIA), and cerebral infarction without residual deficits; Z87.891 Personal history of nicotine dependence; Z89.611 Acquired absence of right leg above knee

== ENCOUNTER 2019-07-17 09:43 | Day surgery (SDC) | payer MEDICARE ==
[~2019-07-17 09:43] MED LIST changes: -ANCEF/STERILE WATER 2 GM/20 ML 2 GM/20 ML SYRINGE IV NR; -NACL 0.9% 1000 ML 1,000 ML IV SCH; +ceFAZolin/Water 2 GM/20 ML 2 GM/20 ML SYRINGE IV NR
[2019-07-17] MEDS ORDERED: SODIUM CHLORIDE 0.9% 1000 ML 1,000 ML IV SCH (10:00)
[2019-07-17 10:52] LABS: Calcium 9.3 mg/dL (8.4-10.2)
[2019-07-17] MEDS ORDERED: MIDAZOLAM 2 MG/2 ML INJ IV NR (11:00)
[2019-07-17] MEDS ORDERED: ONDANSETRON 4 MG/2 ML INJ IV PRN (11:08)
[2019-07-17] MEDS ORDERED: HYDROmorphone 1 MG/1 ML INJ IV PRN (11:08)
[2019-07-17] MEDS ORDERED: fentaNYL 100 MCG/2 ML INJ IV PRN (11:08)
--- NOTE | 2019-07-17 11:08 | Anesthesia Consultation ---
Anesthesia Consult and Med Hx - Airway Anesthetic Teeth Evaluation: Edentulous ROM Head & Neck: Adequate Mental/Hyoid Distance: Adequate Mallampati Class: Class II Intubation Access Assessment: Good - Pulmonary Exam CTA: Yes - Cardiac Exam Cardiac Exam: RRR - Pre-Operative Health Status ASA Pre-Surgery Classification: ASA3 Proposed Anesthetic Plan: General - Pulmonary Hx Smoking: Yes (STOPPED X 20 YRS (1 PPD)) Hx Asthma: No Hx Respiratory Symptoms: No SOB: No Hx Sleep Apnea: No (ANABEL PRE SCREEN LOW RISK) - Cardiovascular System Hx Hypertension: Yes (2007) Hx Coronary Artery Disease: Yes Hx Heart Attack/AMI: No Hx Angina: No Hx Percutaneous Transluminal Coronary Angioplasty (PTCA): No Hx Cardia Arrhythmia: Yes (patient unsure of exact diagnosis; no anticoagulation) Hx Pacemaker: No Hx Internal Defibrillator: No Hx Heart Murmur: Yes Hx Peripheral Vascular Disease: Yes (RIGHT AKA) - Central Nervous System Hx Seizures: No CVA: Yes (2013- RIGHT SIDED WEAKNESS) Hx Psychiatric Problems: No - Gastrointestinal Hx Ulcer: Yes Hx Gastroesophageal Reflux Disease: No - Endocrine Hx Renal Disease: Yes (HAS BANDED AVF RT ARM-CAUSES NECROSIS 5TH FINGER) Hx End Stage Renal Disease: Yes Hx Liver Disease: No Hx Insulin Dependent Diabetes: Yes Hx Non-Insulin Dependent Diabetes: Yes Hx Thyroid Disease: No - Hematic Hx Anemia: Yes Hx Sickle Cell Disease: No - Other Systems Hx Cancer: No Hx Obesity: No
--- NOTE | 2019-07-17 11:08 | Anesthesia Day of Surgery ---
Anesthesia Day of Surgery - Day of Surgery Patient Examined: Yes Patient H&P Reviewed: Yes Patient is NPO: Yes Beta Blockers: Yes
[2019-07-17 11:16] LABS: Basophils % (Auto) 0.4 % (0.0-1.8); Eosinophils # (Auto) 0.3 K/mm3 (0.0-0.4); Eosinophils % (Auto) 4.2 % (0.0-4.3); Hemoglobin 11.6 gm/dl (10.1-14.3); Lymphocytes # (Auto) 2.3 K/mm3 (1.2-5.4); Lymphocytes % (Auto) 34.2 % (13.4-35.0); Mean Corpuscular HGB Conc 31 % (30-34); Mean Corpuscular Volume 71 fl (79-97); Monocytes # (Auto) 0.7 K/mm3 (0.0-0.8); Monocytes % (Auto) 10.4 % (0.0-7.3); Platelet Count 167 K/mm3 (140-440); Red Blood Count 5.19 M/mm3 (3.65-5.03); Red Cell Distribution Width 17.8 % (13.2-15.2)
[2019-07-17] MEDS ORDERED: HYDROmorphone 1 MG/1 ML INJ ONE (11:32)
[2019-07-17] MEDS ORDERED: LIDOCAINE MPF (2%) 20 MG/1 ML VIAL 5 ML ONE (11:32)
[2019-07-17] MEDS ORDERED: propofoL 200 MG/20 ML VIAL IV ONE (11:32)
[2019-07-17] MEDS ORDERED: BUPIVACAINE/PF (0.5%) 5 MG/1 ML 30 ML VIAL INFILTRATI ONE (11:49)
[2019-07-17] MEDS ORDERED: MINERAL OIL Light (Sterile) 10 ML VIAL TP ONE (11:49)
[2019-07-17] MEDS ORDERED: ePHEDrine SULFATE 50 MG/1 ML INJ ONE (12:58)
[2019-07-17] MEDS ORDERED: ONDANSETRON 4 MG/2 ML INJ ONE (13:49)
--- NOTE | 2019-07-17 14:23 | Procedure Note ---
Date of procedure: 07/17/19 Pre-op diagnosis: Full-thickness skin loss right fifth finger Post-op diagnosis: same Procedure: Full-thickness skin graft right fifth finger Procedure The patient was brought to the OR and placed in the OR table in supine position following induction with MAC anesthesia the patient's right upper extremity was prepped and draped in the usual sterile manner. A timeout procedure was done to identify the patient and the correct operative site. The arm was exsanguinated followed by inflation of the pneumatic tourniquet to 250 mmHg.. Next a oval or oblong type of incision was made over the hyperthenar area the full-thickness skin graft was then harvested the area where the skin was taken from was then closed primarily using 4-0 nylon next the skin graft was then debrided of fat and was placed in our skin grafting machine at which point multiple holes were punched into the full-thickness skin graft. The skin graft was then placed over the bleeding bed overlying the proximal and middle phalanx this was then sewn into place followed by coverage with Adaptic and cotton balls care was taken to secure the skin graft in place by use of multiple nylon sutures next the routine postop dressings were applied as well as a a well-padded aluminum splint with the finger in extension there were no complications patient tolerated procedure she was taken to postanesthesia recovery in stable condition Anesthesia: MAC Surgeon: SHERMAN FELIX Estimated blood loss: minimal Pathology: none Condition: stable Disposition: PACU
[2019-07-17 20:55] VITALS: BP 146/78
== END 2019-07-17 09:44 | disposition home or self-care (01) ==
LOC: OR 09:43
PROVIDERS: ATTEND Orthopaedic Surgery
DX: L08.9 Local infection of the skin and subcutaneous tissue, unspecified (principal); I12.0 Hypertensive chronic kidney disease with stage 5 chronic kidney disease or end stage renal disease; E11.22 Type 2 diabetes mellitus with diabetic chronic kidney disease; N18.6 End stage renal disease; I25.10 Atherosclerotic heart disease of native coronary artery without angina pectoris; E78.00 Pure hypercholesterolemia, unspecified; D72.829 Elevated white blood cell count, unspecified; L97.529 Non-pressure chronic ulcer of other part of left foot with unspecified severity; E11.621 Type 2 diabetes mellitus with foot ulcer; E11.51 Type 2 diabetes mellitus with diabetic peripheral angiopathy without gangrene; E11.21 Type 2 diabetes mellitus with diabetic nephropathy; Z98.42 Cataract extraction status, left eye; Z88.2 Allergy status to sulfonamides; Z79.899 Other long term (current) drug therapy; Z87.891 Personal history of nicotine dependence; Z86.73 Personal history of transient ischemic attack (TIA), and cerebral infarction without residual deficits
CPT/HCPCS: 15240; 36415; 80048; 82962; 85025; J0690; J1170; J2250; J2405; J2704; J7030